=== PATIENT | female | born 1990 | race Caucasian/White ===

== ENCOUNTER 2017-03-24 12:31 | Emergency (ER) | payer MEDICARE, OTHER ==
[2017-03-24 12:49] VITALS: RESP 18; TEMP 97.4
--- NOTE | 2017-03-24 12:59 | ED ---
Female Urogenital HPI - General Chief complaint: Urogenital Stated complaint: Female Time Seen by Provider: 03/24/17 12:51 Source: patient, RN notes reviewed Mode of arrival: ambulatory - History of Present Illness Initial comments: 26-year-old female presents to the emergency department with a chief complaint of vaginal discharge. Patient states that she has an unusual vaginal discharge to have been ordered to it. Patient states she is also having some pelvic cramping with this. Patient states he hasn't had any fever chills with this. Patient states she has had the same sexual partner but does not know she has an STD or not. Patient states that she was concerned due to her symptoms so she thought that she should be evaluated. Patient denies any other symptoms at this time.Patient denies any recent fever, chills, shortness of breath, chest pain, back pain, abdominal pain, nausea vomiting, numbness or tingling, dysuria or hematuria, constipation or diarrhea, headaches or visual changes, or any other current symptoms. Last Menstrual Period: 03/22/17 - Related Data Home Medications Medication Instructions Recorded Confirmed metFORMIN HCL [Glucophage] 500 mg PO BID 03/24/17 03/24/17 Previous Rx's Medication Instructions Recorded metroNIDAZOLE 0.75% VAGINAL 1 applic VAGINAL HS 7 Days 03/24/17 [Metrogel Vaginal] Allergies Allergy/AdvReac Type Severity Reaction Status Date / Time morphine Allergy Intermediate Rash/Hives Verified 03/24/17 13:48 chocolate flavor Allergy Rash/Hives Verified 03/24/17 13:48 Review of Systems ROS Statement: Those systems with pertinent positive or pertinent negative responses have been documented in the HPI. ROS Other: All systems not noted in ROS Statement are negative. Past Medical History Past Medical History: No Reported History, Skin Disorder Additional Past Medical History / Comment(s): cholelithiasis and psoriasis History of Any Multi-Drug Resistant Organisms: None Reported Past Surgical History: Cholecystectomy Additional Past Surgical History / Comment(s): bilateral knee surgery 1999, 2000 Past Anesthesia/Blood Transfusion Reactions: No Reported Reaction Past Psychological History: Anxiety, Depression Smoking Status: Never smoker Past Alcohol Use History: None Reported Past Drug Use History: None Reported - Past Family History Mother Family Medical History: No Reported History General Exam General appearance: alert, in no apparent distress Eye exam: Present: normal appearance ENT exam: Present: normal exam, mucous membranes moist Neck exam: Present: normal inspection. Absent: tenderness, meningismus, lymphadenopathy Respiratory exam: Present: normal lung sounds bilaterally. Absent: respiratory distress, wheezes, rales, rhonchi, stridor Cardiovascular Exam: Present: regular rate, normal rhythm, normal heart sounds. Absent: systolic murmur, diastolic murmur, rubs, gallop, clicks GI/Abdominal exam: Present: soft, normal bowel sounds. Absent: distended, tenderness, guarding, rebound, rigid External exam: Present: normal external exam Speculum exam: Present: vaginal discharge (White, thin). Absent: erythema, cervical discharge, vaginal bleeding, foreign body, tissue, laceration Neurological exam: Present: alert, oriented X3 Psychiatric exam: Present: normal affect, normal mood Skin exam: Present: warm, dry, intact, normal color. Absent: rash Course Vital Signs 03/24/17 12:47 Temperature 97.4 F L Pulse Rate 97 Respiratory 18 Rate Blood Pressure 144/80 O2 Sat by Pulse 98 Oximetry Medical Decision Making - Medical Decision Making 26-year-old female presents emergency Department chief complaint of vaginal discharge. This patient's vaginal exam is most suspicious for bacterial vaginosis. We did check for STDs. We discussed follow-up for this return parameters. We discussed all the patient's family's questions. They stated they understood and management. The plan. They will be discharged home. - Lab Data Lab Results 03/24/17 03/24/17 03/24/17 Range/Units 13:21 13:21 13:21 Urine Color Yellow Urine Appearance Clear (Clear) Urine pH 6.0 (5.0-8.0) Ur Specific [place] 1.020 (1.001-1.035) Urine Protein Negative (Negative) Urine Glucose (UA) Negative (Negative) Urine Ketones Negative (Negative) Urine Blood Negative (Negative) Urine Nitrite Negative (Negative) Urine Bilirubin Negative (Negative) Urine Urobilinogen <2.0 (<2.0) mg/dL Ur Leukocyte Esterase Negative (Negative) Urine HCG, Qual Not Detected (Not Detectd) Trichomonas Ag (Rapid) Negative (Negative) Disposition Clinical Impression: Bacterial vaginosis Disposition: HOME SELF-CARE Condition: Stable Instructions: Bacterial Vaginosis (ED) Additional Instructions: Please use medication as discussed. Please follow up with family doctor if symptoms have not improved over the next two days. Please return to the emergency room if your symptoms increase or worsen or for any other concerns. Prescriptions: metroNIDAZOLE 0.75% VAGINAL [Metrogel Vaginal] 1 applic VAGINAL HS 7 Days Referrals: Edd Capellan MD [Primary Care Provider] - 1-2 days Time of Disposition: 14:12
[2017-03-24 13:47] LABS: Appearance,Urine Clear (Clear); Bilirubin,Urine Negative (Negative); Glucose,Urine (UA) Negative (Negative); Ketones,Urine Negative (Negative); Leukocyte Esterase,Urine Negative (Negative); Nitrite,Urine Negative (Negative); Protein,Urine Negative (Negative); UA Billing (MACRO vs. MICRO) CHEM; Urobilinogen,Urine <2.0 mg/dL (<2.0)
[2017-03-24 14:33] VITALS: BP 136/73; PULSE 80
[2017-03-25 10:40] LABS: Chlamydia/GC Source Vaginal
== END 2017-03-24 14:33 | disposition home or self-care (01) ==
LOC: EC 12:31
DX: N76.0 Acute vaginitis (principal); Z79.84 Long term (current) use of oral hypoglycemic drugs; Z88.5 Allergy status to narcotic agent; Z91.018 Allergy to other foods
CPT/HCPCS: 81003; 81025; 87070; 87205; 87491; 87591; 87808; 99283

== ENCOUNTER 2017-04-23 02:01 | Inpatient (IN) | payer MEDICARE, OTHER ==
[2017-04-23] MEDS ORDERED: SODIUM CHLORIDE 0.9% 500 ML IV STA (02:23)
[2017-04-23 04:07] LABS: Basophils # (A) 0.1 k/uL (0-0.2); Basophils % (A) 1 %; CH 29.7; CHCM 33.1; Eosinophils # (A) 0.2 k/uL (0-0.7); Eosinophils % (A) 2 %; HCT 43.5 % (34.0-46.0); HDW 2.67; HGB 14.1 gm/dL (11.4-16.0); Luc % (Auto) 1; Lymphocytes # (A) 1.6 k/uL (1.0-4.8); Lymphocytes % (A) 16 %; MCH 29.3 pg (25.0-35.0); MCHC 32.5 g/dL (31.0-37.0); Mean Platelet Volume 6.6; Monocytes # (A) 0.5 k/uL (0-1.0); Monocytes % (A) 6 %; Neutrophils # (A) 7.3 k/uL (1.3-7.7); Neutrophils % (A) 75 %; RBC 4.83 m/uL (3.80-5.40); RDW 13.3 % (11.5-15.5); WBC 9.8 k/uL (3.8-10.6); WBC (Perox) 10.03
[2017-04-23 04:20] LABS: ALT 57 U/L (9-52); AST 35 U/L (14-36); Alcohol <10 mg/dL; Alkaline Phosphatase 94 U/L (38-126); Anion Gap 12 mmol/L; Blood Urea Nitrogen 7 mg/dL (7-17); Calcium 8.9 mg/dL (8.4-10.2); Carbon Dioxide 20 mmol/L (22-30); Chloride 109 mmol/L (98-107); Glucose 94 mg/dL (74-99); Non-African American GFR(MDRD) >60 (>60 ml/min/1.73 sqM); Potassium 3.9 mmol/L (3.5-5.1); Sodium 141 mmol/L (137-145); Total Bilirubin 0.3 mg/dL (0.2-1.3); Total Protein 6.7 g/dL (6.3-8.2)
--- NOTE | 2017-04-23 04:41 | ED ---
Seizure HPI - General Chief Complaint: Seizure Stated Complaint: Possible Seizure Time Seen by Provider: 04/23/17 02:04 Source: patient, EMS Mode of arrival: EMS - History of Present Illness Initial Comments: This patient is a 26-year-old woman brought by EMS to be evaluated for possible seizure. EMS had reported that the patient's roommate heard her cry out and then went to see her and found her somewhat stiff, and the roommate called EMS. EMS arrived to find the patient appearing postictal, disoriented and initially not able to speak. Over number of minutes he patient then reportedly returned to baseline. The patient herself is not able to give any related history. She remembers going to bed, and then the next thing she recalls was becoming alert while a number people were around her at her residence. The patient is denying any injury or pain. She denies any loss of continence. Patient has no previous seizure history. MD Complaint: possible seizure -: minutes(s) Description of Episode: post-event confusion Witnessed: no Trauma: No Seizure History: none Place: home Possible Precipitating Event: none Associated Symptoms: denies other symptoms - Related Data Home Medications Medication Instructions Recorded Confirmed metFORMIN HCL [Glucophage] 500 mg PO BID 03/24/17 04/23/17 Previous Rx's Medication Instructions Recorded Ciprofloxacin HCl [Cipro] 500 mg PO Q12HR #10 tablet 04/24/17 Allergies Allergy/AdvReac Type Severity Reaction Status Date / Time morphine Allergy Intermediate Rash/Hives Verified 04/23/17 08:46 chocolate flavor Allergy Rash/Hives Verified 04/23/17 08:46 Review of Systems ROS Statement: Those systems with pertinent positive or pertinent negative responses have been documented in the HPI. ROS Other: All systems not noted in ROS Statement are negative. Constitutional: Denies: fever, chills Eyes: Denies: vision change Respiratory: Denies: cough, dyspnea Cardiovascular: Denies: chest pain, palpitations Gastrointestinal: Denies: abdominal pain, vomiting, diarrhea Genitourinary: Denies: dysuria, hematuria Musculoskeletal: Denies: back pain Skin: Denies: rash Neurological: Reports: confusion. Denies: headache, weakness, numbness, paresthesias Past Medical History Past Medical History: No Reported History, Skin Disorder Additional Past Medical History / Comment(s): cholelithiasis and psoriasis History of Any Multi-Drug Resistant Organisms: None Reported Past Surgical History: Cholecystectomy Additional Past Surgical History / Comment(s): bilateral knee surgery 1999, 2000 Past Anesthesia/Blood Transfusion Reactions: No Reported Reaction Past Psychological History: Anxiety, Depression Smoking Status: Never smoker Past Alcohol Use History: None Reported Past Drug Use History: None Reported - Past Family History Mother Family Medical History: No Reported History Father Family Medical History: No Reported History Additional Family Medical History / Comment(s): Father is healthy General Exam General appearance: alert, in no apparent distress, obese Head exam: Present: atraumatic, normocephalic Eye exam: Present: normal appearance, PERRL, EOMI. Absent: scleral icterus, conjunctival injection, nystagmus ENT exam: Present: normal oropharynx, mucous membranes moist Neck exam: Present: normal inspection, full ROM. Absent: meningismus Respiratory exam: Present: normal lung sounds bilaterally. Absent: respiratory distress, wheezes, rales, rhonchi, stridor Cardiovascular Exam: Present: normal rhythm, tachycardia (Rate 116 a minute), normal heart sounds. Absent: systolic murmur, diastolic murmur, rubs, gallop GI/Abdominal exam: Present: soft. Absent: distended, tenderness, guarding, rebound, mass Extremities exam: Present: normal inspection, normal capillary refill. Absent: pedal edema, calf tenderness Back exam: Present: normal inspection Neurological exam: Present: alert, oriented X3, CN II-XII intact. Absent: motor sensory deficit Skin exam: Present: warm, dry, intact, normal color. Absent: rash Course Vital Signs 04/23/17 04/23/17 04/23/17 02:03 03:49 04:52 Temperature 98.1 F Pulse Rate 129 H 103 H 140 H Respiratory 20 18 Rate Blood Pressure 139/76 140/64 128/72 O2 Sat by Pulse 97 98 98 Oximetry 04/23/17 04/23/17 04/23/17 05:22 05:24 05:50 Temperature Pulse Rate 139 H 108 H Respiratory Rate Blood Pressure 128/83 117/71 O2 Sat by Pulse 92 L 96 Oximetry Medical Decision Making - Medical Decision Making Patient is a 26-year-old woman with what sounds by history like a seizure. She has no previous history and she is back to baseline. I was in the process of going to discuss the patient's results with her when she did have another generalized tonic-clonic seizure. Given this patient will receive a loading dose of anticonvulsants, be admitted for neurology consultation - Lab Data Result diagrams: 04/24/17 07:35 04/24/17 07:35 Lab Results 04/23/17 04/23/17 04/23/17 Range/Units 02:39 02:39 03:59 WBC 9.8 (3.8-10.6) k/uL RBC 4.83 (3.80-5.40) m/uL Hgb 14.1 (11.4-16.0) gm/dL Hct 43.5 (34.0-46.0) % MCV 90.0 (80.0-100.0) fL MCH 29.3 (25.0-35.0) pg MCHC 32.5 (31.0-37.0) g/dL RDW 13.3 (11.5-15.5) % Plt Count 247 (150-450) k/uL Neutrophils % 75 % Lymphocytes % 16 % Monocytes % 6 % Eosinophils % 2 % Basophils % 1 % Neutrophils # 7.3 (1.3-7.7) k/uL Lymphocytes # 1.6 (1.0-4.8) k/uL Monocytes # 0.5 (0-1.0) k/uL Eosinophils # 0.2 (0-0.7) k/uL Basophils # 0.1 (0-0.2) k/uL Sodium (137-145) mmol/L Potassium (3.5-5.1) mmol/L Chloride (98-107) mmol/L Carbon Dioxide (22-30) mmol/L Anion Gap mmol/L BUN (7-17) mg/dL Creatinine (0.52-1.04) mg/dL Est GFR (MDRD) Af Amer (>60 ml/min/1.73 sqM) Est GFR (MDRD) Non-Af (>60 ml/min/1.73 sqM) Glucose (74-99) mg/dL Calcium (8.4-10.2) mg/dL Total Bilirubin (0.2-1.3) mg/dL AST (14-36) U/L ALT (9-52) U/L Alkaline Phosphatase (38-126) U/L Total Protein (6.3-8.2) g/dL Albumin (3.5-5.0) g/dL Urine HCG, Qual Not Detected (Not Detectd) Urine Opiates Screen Not Detected (NotDetected) Ur Oxycodone Screen Not Detected (NotDetected) Urine Methadone Screen Not Detected (NotDetected) Ur Propoxyphene Screen Not Detected (NotDetected) Ur Barbiturates Screen Not Detected (NotDetected) U Tricyclic Antidepress Not Detected (NotDetected) Ur Phencyclidine Scrn Not Detected (NotDetected) Ur Amphetamines Screen Not Detected (NotDetected) U Methamphetamines Scrn Not Detected (NotDetected) U Benzodiazepines Scrn Not Detected (NotDetected) Urine Cocaine Screen Not Detected (NotDetected) U Marijuana (THC) Screen Not Detected (NotDetected) Serum Alcohol mg/dL 04/23/17 Range/Units 03:59 WBC (3.8-10.6) k/uL RBC (3.80-5.40) m/uL Hgb (11.4-16.0) gm/dL Hct (34.0-46.0) % MCV (80.0-100.0) fL MCH (25.0-35.0) pg MCHC (31.0-37.0) g/dL RDW (11.5-15.5) % Plt Count (150-450) k/uL Neutrophils % % Lymphocytes % % Monocytes % % Eosinophils % % Basophils % % Neutrophils # (1.3-7.7) k/uL Lymphocytes # (1.0-4.8) k/uL Monocytes # (0-1.0) k/uL Eosinophils # (0-0.7) k/uL Basophils # (0-0.2) k/uL Sodium 141 (137-145) mmol/L Potassium 3.9 (3.5-5.1) mmol/L Chloride 109 H (98-107) mmol/L Carbon Dioxide 20 L (22-30) mmol/L Anion Gap 12 mmol/L BUN 7 (7-17) mg/dL Creatinine 0.60 (0.52-1.04) mg/dL Est GFR (MDRD) Af Amer >60 (>60 ml/min/1.73 sqM) Est GFR (MDRD) Non-Af >60 (>60 ml/min/1.73 sqM) Glucose 94 (74-99) mg/dL Calcium 8.9 (8.4-10.2) mg/dL Total Bilirubin 0.3 (0.2-1.3) mg/dL AST 35 (14-36) U/L ALT 57 H (9-52) U/L Alkaline Phosphatase 94 (38-126) U/L Total Protein 6.7 (6.3-8.2) g/dL Albumin 3.9 (3.5-5.0) g/dL Urine HCG, Qual (Not Detectd) Urine Opiates Screen (NotDetected) Ur Oxycodone Screen (NotDetected) Urine Methadone Screen (NotDetected) Ur Propoxyphene Screen (NotDetected) Ur Barbiturates Screen (NotDetected) U Tricyclic Antidepress (NotDetected) Ur Phencyclidine Scrn (NotDetected) Ur Amphetamines Screen (NotDetected) U Methamphetamines Scrn (NotDetected) U Benzodiazepines Scrn (NotDetected) Urine Cocaine Screen (NotDetected) U Marijuana (THC) Screen (NotDetected) Serum Alcohol <10 mg/dL - EKG Data -: EKG Interpreted by Me EKG shows normal: sinus rhythm, axis (Normal), intervals (Normal), ST-T waves ( Normal) Rate: tachycardia (Rate 123 bpm) Interpretation: other (Possible anterior infarct) Disposition Clinical Impression: Mental status change, New onset seizure Narrative: Possible seizure Disposition: [facility] Condition: Fair
[2017-04-23] MEDS: LORazepam 2 MG/ML SYRINGE IV STA ×2 (04:46→04:50)
[2017-04-23] MEDS ORDERED: ONDANSETRON 4 MG/2 ML VIAL IVP PRN (04:58)
[2017-04-23] MEDS ORDERED: NALOXONE 0.4 MG/ML 1 ML VIAL IV PRN (04:58)
[2017-04-23] MEDS ORDERED: SODIUM CHLORIDE 0.9% 1,000 ML IV SCH (05:00)
[2017-04-23] MEDS ORDERED: PHENYTOIN SODIUM INJ 1,200 MG in SODIUM CHLORIDE 0.9% 100 ML IVPB STA (05:02)
[2017-04-23 05:15] LABS: Glucose,Whole Blood 111 mg/dL (75-99)
--- NOTE | 2017-04-23 05:31 | CT ---
EXAM: CT Head Without Intravenous Contrast CLINICAL HISTORY: Reason: Pain TECHNIQUE: Axial computed tomography images of the head/brain without intravenous contrast. DLP is 2185.1 mGy-cm. This CT exam was performed using one or more of the following dose reduction techniques: automated exposure control, adjustment of the mA and/or kV according to patient size, and/or use of iterative reconstruction technique. COMPARISON: 03/03/16 FINDINGS: Artifacts: Extensive motion artifact degrade image quality. Brain: No gross hemorrhage or mass effect. Consider repeat imaging for better evaluation when patient is stable. Ventricles: Unremarkable. No ventriculomegaly. Bones/joints: Unremarkable. No acute fracture. Soft tissues: Unremarkable. Sinuses: Unremarkable as visualized. No acute sinusitis. Mastoid air cells: Unremarkable as visualized. No mastoid effusion. IMPRESSION: 1. Limited study due to extensive motion artifact. 2. No gross acute hemorrhage or mass effect.
[2017-04-23] MEDS ORDERED: metFORMIN 500 MG TAB PO SCH (07:30)
[2017-04-23] MEDS ORDERED: ACETAMINOPHEN TAB 325 MG TAB PO PRN (09:09)
[2017-04-23] MEDS ORDERED: LORazepam 2 MG/ML SYRINGE IV PRN (09:45)
--- NOTE | 2017-04-23 12:40 | HP ---
DATE OF ADMISSION: Patient is a 26-year-old female who came in with new onset of seizure. Patient was found to be in tonic-clonic activity. Did have a tongue bite without any loss of bowel or bladder continence with post-ictal confusion, lasted for a few minutes and patient is presently alert and oriented x3. This is the first episode of seizure. Patient never had any seizures when she was in a kid. No history of brain tumors in the family. No history of seizures in the family and patient did bite her tongue and patient was loaded with Dilantin, subsequently admitted and patient was started on Ativan here. I order an MRI and MRA with contrast to rule out any organic cause for seizures and also sleep-awake EEG and until the EEG is done, patient will not be started on any antiseizure medication. Neurology was consulted as well and patient was a bit tachycardic and mild low-grade fever, probably related to seizures and without any signs or symptoms of infection, although septic work-up is being done with a chest x-ray, UA, urine culture, urine analysis and blood culture and repeat electrolytes and comprehensive metabolic profile tomorrow and also CBC for leukocytosis tomorrow. REVIEW OF SYSTEMS: NEUROLOGICAL: As described in HPI. Patient denied any weakness, denied any migraine. CONSTITUTIONAL: No fever, no malaise, no fatigue. HEENT: No recent visual problems or hearing problems. Denied any sore throat. CARDIOVASCULAR: No chest pain, orthopnea, PND, no palpitations, no syncope. PULMONARY: No shortness of breath, no cough, no hemoptysis. GASTROINTESTINAL: No diarrhea, no nausea, no vomiting, no abdominal pain. Normoactive bowel sounds. HEMATOLOGICAL: Denies any bleeding or petechiae. GENITOURINARY: Denies any burning micturition, frequency, or urgency. MUSCULOSKELETAL/RHEUMATOLOGICAL: Denies any joint pain, swelling, or any muscle pain. ENDOCRINE: Denies any polyuria or polydipsia. The rest of the 14 point review of systems is negative. Past medical history significant for pCO2 for which patient is on metformin for that and cholelithiasis and psoriasis. Cholecystectomy in the past, anxiety, depression. SOCIAL HISTORY: Denied any smoking, alcohol abuse or any drug abuse. FAMILY HISTORY: As described in HPI. PHYSICAL EXAMINATION: Temperature 100.5, pulse of 126. Patient is not that tachycardic now. Patient is probably in 90s now. Respiratory rate was 34, now around 16 of 17. Blood pressure is 123/61, saturating at 100% on room air. GENERAL EXAMINATION: Morbidly obese. Alert and oriented x3. HEENT: Pupils are round and equally reacting to light. EOMI. No scleral icterus. No conjunctival pallor. Normocephalic, atraumatic. No pharyngeal erythema. No thyromegaly. CARDIOVASCULAR: S1 and S2 present. No murmurs, rubs, or gallops. PULMONARY: Chest is clear to auscultation, no wheezing or crackles. ABDOMEN: Soft, nontender, nondistended, normoactive bowel sounds. No palpable organomegaly. MUSCULOSKELETAL: No joint swelling or deformity. EXTREMITIES: No cyanosis, clubbing, or pedal edema. NEUROLOGICAL: Gross neurological examination did not reveal any focal deficits. SKIN: No rashes. LABORATORY DATA: CBC, CMP are essentially within normal limits and urine drug screen is negative. Serum alcohol is less than 10. ASSESSMENT AND PLAN: 1. New onset seizures. Work-up as mentioned above. 2. Fever with tachycardia. Patient will be worked up for sepsis, although no source of infection was identified. 3. Systemic inflammatory response can be related to seizures and patient does not have any significant symptoms of encephalopathy. Patient does not have any migraine. 4. ( ). Patient was on metformin, which will be held until MRI with contrast is done. Can be started again as an outpatient. 5. Morbid obesity. Counseling was provided.
--- NOTE | 2017-04-23 12:51 | XR ---
EXAMINATION TYPE: XR chest 2V DATE OF EXAM: 04/23/2017 COMPARISON: CTA chest March 02, 2016. HISTORY: Seizure yesterday. TECHNIQUE: Frontal and lateral views of the chest are obtained. FINDINGS: There is no focal air space opacity, pleural effusion, or pneumothorax seen. The cardiac silhouette size is within normal limits. The osseous structures are intact. Cholecystectomy clips a re noted. IMPRESSION: No acute cardiopulmonary process.
[2017-04-23 15:57] LABS: Amorphous Sediment,Urine Rare /hpf; Appearance,Urine Cloudy (Clear); Bacteria,Urine Occasional /hpf; Bilirubin,Urine Negative (Negative); Glucose,Urine (UA) Negative (Negative); Ketones,Urine Negative (Negative); Leukocyte Esterase,Urine Negative (Negative); Mucus,Urine Rare /hpf; Nitrite,Urine Negative (Negative); PH, Urine 5.5 (5.0-8.0); Particle Count 1503; Protein,Urine Negative (Negative); RBC,Urine <1 /hpf (0-5); Specific Gravity,Urine 1.009 (1.001-1.035); Squamous Epithelial Cell,Urine 1 /hpf (0-4); UA Billing (MACRO vs. MICRO) MICRO; Uric Acid Crystals,Urine Occasional /hpf; Urobilinogen,Urine <2.0 mg/dL (<2.0); WBC,Urine 2 /hpf (0-5)
--- NOTE | 2017-04-23 20:26 | MR ---
EXAMINATION TYPE: MR brain wo/w con DATE OF EXAM: 04/23/2017 COMPARISON: NONE HISTORY: Seizures CONTRAST: Standard multiplanar, multisequence MRI departmental protocol utilizing 20 mL intravenous gadolinium contrast. FINDINGS: The ventricles and sulci appear normal. There is no mass effect nor midline shift. There is no sign of intracranial hemorrhage. I see no sign of cerebral edema. There is some mucosal thickenin g in the left maxillary sinus. Brainstem appears normal. Corpus callosum appears normal. Sella turcic a appears normal. I see no pathologic enhancement. Muhammad and white matter structures have normal signa l pattern. IMPRESSION: Normal MR scan of the brain. I do not see a cause for seizures.
--- NOTE | 2017-04-23 21:46 | CONS ---
DATE OF CONSULTATION: 04/23/2017 CHIEF COMPLAINT: Seizure, single episode. HISTORY OF PRESENT ILLNESS: The patient is a pleasant 26-year-old female who is being evaluated by the neurology service per the request of Dr. Montague for a seizure. The patient states that she went to bed yesterday at approximately 11:00 p.m. and she was at her normal state of health. She woke up early in the morning to find the EMS personnel at her bedside. She was then told her family that her family heard some moaning and screaming and when they got to her bedroom she was convulsing and EMS was called. The patient does not know how long her seizure lasted. She did bite her tongue, but she does not believe she had any sphincter incontinence. She denies any previous history of seizures. The patient was somewhat postictal after the spell. In the emergency room, a CT scan of the brain was done, which was normal. Her CBC and urine drug screen was normal. Her comprehensive metabolic profile was normal except for mildly elevated ALT at 57. I did review her EEG, which was within normal limits. The patient was admitted for further work-up and management. She has not had a breakthrough seizure since her admission. She denies any headache or dizziness. Denies any lateralizing numbness or weakness. An MRI of the brain has been ordered, but the results are pending at this time. The patient denies starting any new medications and denies having any fevers at home. Her only medications is metformin which she takes for her polycystic ovarian disease. PAST MEDICAL HISTORY: Polycystic ovaries, history of psoriasis and cholecystectomy. She also has history of depression and anxiety disorder. SOCIAL HISTORY: She denies any tobacco, alcohol or drug use. FAMILY HISTORY: Noncontributory. HOME MEDICATIONS: Metformin. ALLERGIES: MORPHINE AND CHOCOLATE FLAVORING. REVIEW OF SYSTEMS: CONSTITUTIONAL: Negative. EYES: Negative. ENT: Negative. CARDIOVASCULAR: Negative. RESPIRATORY: Negative. NEUROLOGICAL: As mentioned above. GASTROINTESTINAL: Negative. GENITOURINARY: As mentioned above. PSYCHIATRIC: Positive for history of depression and anxiety disorder. ENDOCRINE: Negative. Dermatological: Positive for history of psoriasis. MUSCULOSKELETAL: Negative. PHYSICAL EXAM: Vital signs show a temperature of 98.4, pulse 102, respirations 32, blood pressure 112/64. Early this morning, she did have a temperature of 100.5. GENERAL APPEARANCE: The patient is an obese female who appears to be in no acute distress. HEENT: Normocephalic, atraumatic, no facial asymmetry is seen. Extraocular muscles are intact. Neck is supple with no masses felt. CARDIOVASCULAR: Regular rate and rhythm. ABDOMEN: Nontender, nondistended. Extremities showed trace edema with no clubbing seen. NEUROLOGICAL EXAM: The patient is awake alert and oriented x3. Speech and language are normal. Strength is full in all 4 extremities. Sensory exam was normal to light touch in all 4 extremities. No facial asymmetry is seen on cranial nerve testing. No tremors or seizure-like activity is seen. IMPRESSION: 1. Generalized tonic-clonic seizure, single episode. 2. Polycystic ovaries. 3. Elevated liver enzymes. RECOMMENDATIONS: The patient does appear to have suffered a generalized tonic-clonic seizure that was witnessed by family. The episode occurred while she was sleeping. She has not had any previous history of seizure-like activity prior to this. I had a lengthy discussion with her regarding her work-up. Her CT scan of the brain and EEG were reviewed and were within normal limits. An MRI of the brain has been ordered with and without contrast and the results are pending. At this time, no antiepileptic medications will be recommended, as this is the first seizure and this appears to be unprovoked. The patient was told that she is not to drive or operate any heavy machinery for a period of 6 months. Continue neurologic checks. If her MRI of the brain is normal, she will be cleared for discharge tomorrow morning. She can follow up in the outpatient clinic after her discharge. Thank you for allowing me to participate in the care of your patient. If you have any questions, please feel free to contact me.
--- NOTE | 2017-04-23 22:08 | EEG ---
DATE OF SERVICE: 04/23/2017 INDICATIONS FOR EXAMINATION: Seizure, single episode. AGE: 26Y DESCRIPTION OF THE PROCEDURE: This EEG was performed using a 21 channel digital electroencephalograph following international 10-20 system. DESCRIPTION OF THE RECORDING: From the beginning of the tracing, with the patient's eyes closed, the background rhythm was mostly consisting of 9 Hz alpha frequency in the posterior occipital leads. No obvious asymmetry is seen. Photic stimulation is performed with a good driving response seen. No pathological waves were elicited. Hyperventilation was not performed. Rare movement artifacts were seen. The patient remains await throughout the tracing. No epileptiform discharges were seen. Her EKG lead showed tachycardic rate with a normal rhythm. INTERPRETATION: This awake EEG can be considered within normal limits. There was no asymmetry seen. No epileptiform discharges were noticed. The absence of epileptiform discharges does not rule out the diagnosis of epilepsy. Therefore, clinical correlation is recommended.
[2017-04-24 07:39] VITALS: BP 113/58; PULSE 78; RESP 26; TEMP 98.3
[2017-04-24 08:10] LABS: CH 29.8; CHCM 33.4; HCT 45.4 % (34.0-46.0); HDW 2.65; HGB 14.6 gm/dL (11.4-16.0); MCH 28.8 pg (25.0-35.0); MCHC 32.1 g/dL (31.0-37.0); MCV 89.7 fL (80.0-100.0); Mean Platelet Volume 6.6; RBC 5.06 m/uL (3.80-5.40); RDW 13.5 % (11.5-15.5); WBC 8.2 k/uL (3.8-10.6)
[2017-04-24 08:31] LABS: ALT 57 U/L (9-52); AST 37 U/L (14-36); Alkaline Phosphatase 79 U/L (38-126); Anion Gap 11 mmol/L; Blood Urea Nitrogen 7 mg/dL (7-17); Calcium 9.1 mg/dL (8.4-10.2); Carbon Dioxide 23 mmol/L (22-30); Chloride 106 mmol/L (98-107); Glucose 86 mg/dL (74-99); Non-African American GFR(MDRD) >60 (>60 ml/min/1.73 sqM); Potassium 3.9 mmol/L (3.5-5.1); Sodium 140 mmol/L (137-145); Total Bilirubin 0.8 mg/dL (0.2-1.3); Total Protein 7.1 g/dL (6.3-8.2)
--- NOTE | 2017-04-25 08:47 | DS ---
DATE OF ADMISSION: 04/23/2017 DATE OF DISCHARGE: 04/24/2017 26-year-old admitted to the hospital with new onset seizure, first episode of seizure tonic-clonic activity and patient is clinically doing and will be discharged today. EEG is negative. MRI is negative. Although patient has clinical seizures, had clinical seizures, since this is the first episode patient is not being discharged on any antiseizure medications. Counseling regarding not to drive for about 6 months was provided. Patient will be discharged to follow up with Dr. Moran and Dr. Capellan. Dr. Capellan in [address] Moran in about a week. Activity as tolerated. Low-calorie diet. The patient was seen and examined on the day of discharge. Vitals are stable. PHYSICAL EXAMINATION: GENERAL: The patient is alert and oriented x3, not in any acute distress. Well developed, well nourished. HEENT: Pupils are round and equally reacting to light. EOMI. No scleral icterus. No conjunctival pallor. Normocephalic, atraumatic. No pharyngeal erythema. No thyromegaly. CARDIOVASCULAR: S1 and S2 present. No murmurs, rubs, or gallops. PULMONARY: Chest is clear to auscultation, no wheezing or crackles. ABDOMEN: Soft, nontender, nondistended, normoactive bowel sounds. No palpable organomegaly. MUSCULOSKELETAL: No joint swelling or deformity. EXTREMITIES: No cyanosis, clubbing, or pedal edema. NEUROLOGICAL: Gross neurological examination did not reveal any focal deficits. SKIN: No rashes. FINAL DIAGNOSIS(ES): 1. New onset seizures. 2. PCOD. 3. Fever with tachycardia. Fever and tachycardia probably related to seizures. 4. Systemic inflammatory response from seizures although that completely resolved at this point of time. Patient's urine showed occasional bacteria. Patient does not have any signs of infection but UA is definitely positive since she had a fever and tachycardia, although may be related to seizures, I will go ahead and give her 5 days of and empiric antibiotic ciprofloxacin treating for possibility of urinary tract infection although the possibility of which is low. PCOD for which patient is on metformin, which will be continued.
== END 2017-04-24 11:10 | disposition home or self-care (01) | DRG 101 ==
LOC: EC 02:01 → 5MS5E 04:58
PROVIDERS: ADMIT Hospitalist; ATTEND Hospitalist
DX: R56.9 Unspecified convulsions (principal); Z68.44 Body mass index [BMI] 60.0-69.9, adult; N39.0 Urinary tract infection, site not specified; E66.01 Morbid (severe) obesity due to excess calories; E28.2 Polycystic ovarian syndrome; L40.9 Psoriasis, unspecified; Z71.3 Dietary counseling and surveillance; Z86.59 Personal history of other mental and behavioral disorders; Z90.49 Acquired absence of other specified parts of digestive tract; Z88.5 Allergy status to narcotic agent; Z91.018 Allergy to other foods; Z79.84 Long term (current) use of oral hypoglycemic drugs
CPT/HCPCS: 36415; 70450; 70553; 71020; 80053; 80306; 80320; 81001; 81025; 85025; 85027; 87040; 87086; 93005; 95819; 96361; 96365; 96375; 99285

== ENCOUNTER 2017-07-28 19:10 | Emergency (ER) | payer MEDICARE, OTHER ==
--- NOTE | 2017-07-28 20:20 | ED ---
Female Urogenital HPI - General Chief complaint: Vaginal Bleeding Stated complaint: 4 wks preg. Spotting Time Seen by Provider: 07/28/17 20:01 Source: patient, RN notes reviewed Mode of arrival: ambulatory Limitations: no limitations - History of Present Illness Initial comments: This a 27 show female presents emergency Department chief complaint of vaginal bleeding and . Patient states she started spotting one day ago. Patient states that has not stopped states only when she wipes when she goes to the bathroom. Patient states she is A0. Patient states her last menstrual cycle was June 09. Patient states that she is scheduled an appointment with Dr. Gutierres her [employer]. Patient states that she has developed some mild pelvic cramping. She denies any passage of clots or material. Patient states that she is O+ blood type. Patient denies any fever, chills, headache, dizziness, chest pain, shortness breath, nausea, vomiting. Patient denies any dysuria - Related Data Home Medications Medication Instructions Recorded Confirmed No Known Home Medications [No 07/28/17 07/28/17 Known Home Medications] Allergies Allergy/AdvReac Type Severity Reaction Status Date / Time morphine Allergy Intermediate Rash/Hives Verified 07/28/17 20:32 chocolate flavor Allergy Rash/Hives Verified 07/28/17 20:32 Review of Systems ROS Statement: Those systems with pertinent positive or pertinent negative responses have been documented in the HPI. ROS Other: All systems not noted in ROS Statement are negative. Past Medical History Past Medical History: No Reported History, Skin Disorder Additional Past Medical History / Comment(s): cholelithiasis and psoriasis History of Any Multi-Drug Resistant Organisms: None Reported Past Surgical History: Cholecystectomy Additional Past Surgical History / Comment(s): bilateral knee surgery 1999, 2000 Past Anesthesia/Blood Transfusion Reactions: No Reported Reaction Past Psychological History: Anxiety, Depression Smoking Status: Never smoker Past Alcohol Use History: None Reported Past Drug Use History: None Reported - Past Family History Mother Family Medical History: No Reported History Additional Family Medical History / Comment(s): Mother is healthy Father Family Medical History: No Reported History Additional Family Medical History / Comment(s): Father is healthy General Exam Limitations: no limitations General appearance: alert, in no apparent distress, obese Head exam: Present: atraumatic, normocephalic, normal inspection Respiratory exam: Present: normal lung sounds bilaterally. Absent: respiratory distress, wheezes, rales, rhonchi, stridor Cardiovascular Exam: Present: regular rate, normal rhythm, normal heart sounds. Absent: systolic murmur, diastolic murmur, rubs, gallop, clicks GI/Abdominal exam: Present: soft, normal bowel sounds. Absent: distended, tenderness, guarding, rebound, rigid Back exam: Absent: CVA tenderness (R), CVA tenderness (L) Skin exam: Present: warm, dry, intact, normal color. Absent: rash Course Vital Signs 07/28/17 19:24 Temperature 98.4 F Pulse Rate 87 Respiratory 20 Rate Blood Pressure 159/97 O2 Sat by Pulse 98 Oximetry Medical Decision Making - Medical Decision Making 27-year-old female presented emergency department for possible bleeding and urgency. Patient's hCG level is less than 2.4. Patient is not currently . Patient ultrasound does not reveal any acute abnormality. Patient is mostly to the having her menstrual cycle at this time. Patient will follow- up with her [employer] return parameters were discussed. - Lab Data Result diagrams: 07/28/17 20:20 07/28/17 20:20 Lab Results 07/28/17 07/28/17 07/28/17 Range/Units 20:20 20:20 20:20 WBC 9.4 (3.8-10.6) k/uL RBC 5.08 (3.80-5.40) m/uL Hgb 15.0 (11.4-16.0) gm/dL Hct 43.8 (34.0-46.0) % MCV 86.3 (80.0-100.0) fL MCH 29.4 (25.0-35.0) pg MCHC 34.1 (31.0-37.0) g/dL RDW 12.9 (11.5-15.5) % Plt Count 279 (150-450) k/uL Neutrophils % 57 % Lymphocytes % 31 % Monocytes % 5 % Eosinophils % 5 % Basophils % 1 % Neutrophils # 5.4 (1.3-7.7) k/uL Lymphocytes # 2.9 (1.0-4.8) k/uL Monocytes # 0.5 (0-1.0) k/uL Eosinophils # 0.5 (0-0.7) k/uL Basophils # 0.1 (0-0.2) k/uL Sodium 141 (137-145) mmol/L Potassium 4.2 (3.5-5.1) mmol/L Chloride 108 H (98-107) mmol/L Carbon Dioxide 22 (22-30) mmol/L Anion Gap 11 mmol/L BUN 7 (7-17) mg/dL Creatinine 0.70 (0.52-1.04) mg/dL Est GFR (MDRD) Af Amer >60 (>60 ml/min/1.73 sqM) Est GFR (MDRD) Non-Af >60 (>60 ml/min/1.73 sqM) Glucose 81 (74-99) mg/dL Calcium 9.4 (8.4-10.2) mg/dL HCG, Quant <2.4 mIU/mL Urine Color Urine Appearance (Clear) Urine pH (5.0-8.0) Ur Specific [place] (1.001-1.035) Urine Protein (Negative) Urine Glucose (UA) (Negative) Urine Ketones (Negative) Urine Blood (Negative) Urine Nitrite (Negative) Urine Bilirubin (Negative) Urine Urobilinogen (<2.0) mg/dL Ur Leukocyte Esterase (Negative) Blood Type O Positive Blood Type Recheck No 07/28/17 Range/Units 20:20 WBC (3.8-10.6) k/uL RBC (3.80-5.40) m/uL Hgb (11.4-16.0) gm/dL Hct (34.0-46.0) % MCV (80.0-100.0) fL MCH (25.0-35.0) pg MCHC (31.0-37.0) g/dL RDW (11.5-15.5) % Plt Count (150-450) k/uL Neutrophils % % Lymphocytes % % Monocytes % % Eosinophils % % Basophils % % Neutrophils # (1.3-7.7) k/uL Lymphocytes # (1.0-4.8) k/uL Monocytes # (0-1.0) k/uL Eosinophils # (0-0.7) k/uL Basophils # (0-0.2) k/uL Sodium (137-145) mmol/L Potassium (3.5-5.1) mmol/L Chloride (98-107) mmol/L Carbon Dioxide (22-30) mmol/L Anion Gap mmol/L BUN (7-17) mg/dL Creatinine (0.52-1.04) mg/dL Est GFR (MDRD) Af Amer (>60 ml/min/1.73 sqM) Est GFR (MDRD) Non-Af (>60 ml/min/1.73 sqM) Glucose (74-99) mg/dL Calcium (8.4-10.2) mg/dL HCG, Quant mIU/mL Urine Color Light Yellow Urine Appearance Clear (Clear) Urine pH 7.5 (5.0-8.0) Ur Specific [place] 1.009 (1.001-1.035) Urine Protein Negative (Negative) Urine Glucose (UA) Negative (Negative) Urine Ketones Negative (Negative) Urine Blood Negative (Negative) Urine Nitrite Negative (Negative) Urine Bilirubin Negative (Negative) Urine Urobilinogen <2.0 (<2.0) mg/dL Ur Leukocyte Esterase Negative (Negative) Blood Type Blood Type Recheck Disposition Clinical Impression: Menstruation Disposition: HOME SELF-CARE Condition: Stable Instructions: Menstruation (ED) Additional Instructions: Please return to the Emergency Department if symptoms worsen or any other concerns. Referrals: Edd Capellan MD [Primary Care Provider] - 1-2 days Time of Disposition: 21:09
[2017-07-28 20:30] LABS: Appearance,Urine Clear (Clear); Basophils # (A) 0.1 k/uL (0-0.2); Basophils % (A) 1 %; Bilirubin,Urine Negative (Negative); CH 29.5; CHCM 34.4; Eosinophils # (A) 0.5 k/uL (0-0.7); Eosinophils % (A) 5 %; Glucose,Urine (UA) Negative (Negative); HCT 43.8 % (34.0-46.0); HDW 2.89; Ketones,Urine Negative (Negative); Leukocyte Esterase,Urine Negative (Negative); Luc # (Auto) 0.15; Luc % (Auto) 2; Lymphocytes # (A) 2.9 k/uL (1.0-4.8); Lymphocytes % (A) 31 %; MCH 29.4 pg (25.0-35.0); MCHC 34.1 g/dL (31.0-37.0); MCV 86.3 fL (80.0-100.0); Mean Platelet Volume 6.3; Monocytes # (A) 0.5 k/uL (0-1.0); Monocytes % (A) 5 %; Neutrophils # (A) 5.4 k/uL (1.3-7.7); Neutrophils % (A) 57 %; Nitrite,Urine Negative (Negative); PH, Urine 7.5 (5.0-8.0); Protein,Urine Negative (Negative); RBC 5.08 m/uL (3.80-5.40); RDW 12.9 % (11.5-15.5); Specific Gravity,Urine 1.009 (1.001-1.035); UA Billing (MACRO vs. MICRO) CHEM; Urobilinogen,Urine <2.0 mg/dL (<2.0); WBC 9.4 k/uL (3.8-10.6)
[2017-07-28 20:41] LABS: Anion Gap 11 mmol/L; Blood Urea Nitrogen 7 mg/dL (7-17); Calcium 9.4 mg/dL (8.4-10.2); Carbon Dioxide 22 mmol/L (22-30); Chloride 108 mmol/L (98-107); Glucose 81 mg/dL (74-99); Non-African American GFR(MDRD) >60 (>60 ml/min/1.73 sqM); Potassium 4.2 mmol/L (3.5-5.1); Sodium 141 mmol/L (137-145)
--- NOTE | 2017-07-28 21:01 | US ---
EXAMINATION TYPE: US OB <=14 wks transvag DATE OF EXAM: 07/28/2017 COMPARISON: NONE CLINICAL HISTORY: Pain. spotting EXAM PERFORMED: Transvaginal (TV) and Transabdominal (TA) EXAM MEASUREMENTS: GESTATIONAL AGE / DATING Physician Established: Not established Dates by LMP: (7 weeks/0 days) EDC: 03/16/2018 Dates by First Scan: This is first scan MATERNAL ANATOMY Uterus: 8.1 x 4.2 x 5.1 Right Ovary: 3.7 x 2.4 x 3.0 Post CDS / Adnexa: wnl Presence of free fluid: wnl Presence of corpus luteal cyst: no Presence of subchorionic bleed: no GESTATION / SURVEY CRL: Not seen MSD: Not seen IUP: No IUP seen at this time Date of LMP: 06/08/2017 Beta HcG (if available): Not available Left ovary is not visualized. IMPRESSION: 1. No current evidence of intrauterine . Differential diagnosis includes early , sp ontaneous and ectopic . Correlate with serum beta hCG level, short-term follow-up p elvic ultrasound in 5-7 days and serial serum beta hCGs. 2. Left ovary is not visualized due to bowel gas.
[2017-07-28 21:18] VITALS: BP 134/85; PULSE 78; RESP 18; TEMP 98.5
== END 2017-07-28 21:18 | disposition home or self-care (01) ==
LOC: EC 19:10
DX: N94.9 Unspecified condition associated with female genital organs and menstrual cycle (principal); Z88.5 Allergy status to narcotic agent; Z91.018 Allergy to other foods
CPT/HCPCS: 36415; 76801; 76817; 80048; 81003; 84702; 85025; 86900; 86901; 99284

== ENCOUNTER 2017-08-02 23:09 | Emergency (ER) | payer MEDICARE, OTHER ==
[2017-08-03] MEDS ORDERED: SODIUM CHLORIDE 0.9% 500 ML IV STA (00:03)
[2017-08-03 00:49] LABS: ALT 41 U/L (9-52); AST 28 U/L (14-36); Alkaline Phosphatase 107 U/L (38-126); Anion Gap 11 mmol/L; Blood Urea Nitrogen 9 mg/dL (7-17); Calcium 9.5 mg/dL (8.4-10.2); Carbon Dioxide 21 mmol/L (22-30); Chloride 107 mmol/L (98-107); Glucose 95 mg/dL (74-99); Non-African American GFR(MDRD) >60 (>60 ml/min/1.73 sqM); Potassium 4.7 mmol/L (3.5-5.1); Sodium 139 mmol/L (137-145); Total Bilirubin 0.4 mg/dL (0.2-1.3); Total Protein 7.3 g/dL (6.3-8.2)
[2017-08-03 00:50] LABS: Amorphous Sediment,Urine Rare /hpf; Appearance,Urine Cloudy (Clear); Bacteria,Urine Rare /hpf; Bilirubin,Urine Negative (Negative); Glucose,Urine (UA) Negative (Negative); Ketones,Urine Trace (Negative); Leukocyte Esterase,Urine Trace (Negative); Mucus,Urine Rare /hpf; Nitrite,Urine Negative (Negative); PH, Urine 6.5 (5.0-8.0); Particle Count 3595; Protein,Urine Negative (Negative); RBC,Urine <1 /hpf (0-5); Specific Gravity,Urine 1.018 (1.001-1.035); Squamous Epithelial Cell,Urine 9 /hpf (0-4); UA Billing (MACRO vs. MICRO) MICRO; Urobilinogen,Urine <2.0 mg/dL (<2.0); WBC,Urine 3 /hpf (0-5)
[2017-08-03 01:00] LABS: Basophils % (A) 0 %; CH 30.2; CHCM 33.7; Eosinophils # (A) 0.2 k/uL (0-0.7); Eosinophils % (A) 2 %; HCT 45.5 % (34.0-46.0); HDW 2.72; Luc # (Auto) 0.15; Luc % (Auto) 1; Lymphocytes # (A) 1.8 k/uL (1.0-4.8); Lymphocytes % (A) 15 %; MCH 29.7 pg (25.0-35.0); Mean Platelet Volume 6.6; Monocytes # (A) 0.7 k/uL (0-1.0); Monocytes % (A) 6 %; Neutrophils # (A) 9.1 k/uL (1.3-7.7); Neutrophils % (A) 76 %; RBC 5.05 m/uL (3.80-5.40); RDW 13.1 % (11.5-15.5)
--- NOTE | 2017-08-03 01:45 | ED ---
General Adult HPI - General Chief complaint: Seizure Stated complaint: Seizure Time Seen by Provider: 08/02/17 23:45 Source: patient Mode of arrival: ambulatory Limitations: no limitations - History of Present Illness Initial comments: This patient is a 27-year-old woman who presents to be evaluated for concerns that she may have had a seizure. The patient states she feels this way because she woke up before coming in here and noted that she had had urinary incontinence, and she was also feeling very fatigued. The patient did not have any trauma. No one had observed any tonic-clonic movements. The patient states that she has previously had one seizure, and does not take any anticonvulsant medication. She is denying pains. She has not had fever or chills. -: minutes(s) - Related Data Home Medications Medication Instructions Recorded Confirmed No Known Home Medications [No 07/28/17 08/02/17 Known Home Medications] Allergies Allergy/AdvReac Type Severity Reaction Status Date / Time morphine Allergy Intermediate Rash/Hives Verified 07/28/17 20:32 chocolate flavor Allergy Rash/Hives Verified 07/28/17 20:32 Review of Systems ROS Statement: Those systems with pertinent positive or pertinent negative responses have been documented in the HPI. ROS Other: All systems not noted in ROS Statement are negative. Constitutional: Reports: weakness (Generalized). Denies: fever, chills Respiratory: Denies: cough, dyspnea Cardiovascular: Denies: chest pain, syncope Gastrointestinal: Denies: abdominal pain, vomiting, diarrhea Genitourinary: Reports: as per HPI, other (Incontinence). Denies: dysuria, hematuria Musculoskeletal: Denies: back pain Skin: Denies: rash Neurological: Denies: headache, weakness, numbness Past Medical History Past Medical History: No Reported History, Skin Disorder Additional Past Medical History / Comment(s): cholelithiasis and psoriasis History of Any Multi-Drug Resistant Organisms: None Reported Past Surgical History: Cholecystectomy Additional Past Surgical History / Comment(s): bilateral knee surgery 1999, 2000 Past Anesthesia/Blood Transfusion Reactions: No Reported Reaction Past Psychological History: Anxiety, Depression Smoking Status: Never smoker Past Alcohol Use History: None Reported Past Drug Use History: None Reported - Past Family History Mother Family Medical History: No Reported History Additional Family Medical History / Comment(s): Mother is healthy Father Family Medical History: No Reported History Additional Family Medical History / Comment(s): Father is healthy General Exam Limitations: no limitations General appearance: alert, in no apparent distress, obese Head exam: Present: atraumatic, normocephalic Eye exam: Present: normal appearance. Absent: scleral icterus, conjunctival injection ENT exam: Present: normal oropharynx Respiratory exam: Present: normal lung sounds bilaterally. Absent: respiratory distress, wheezes, rales, rhonchi, stridor Cardiovascular Exam: Present: regular rate, normal rhythm, normal heart sounds. Absent: systolic murmur, diastolic murmur, rubs, gallop GI/Abdominal exam: Present: soft. Absent: distended, tenderness, guarding, rebound, rigid Extremities exam: Present: normal inspection, normal capillary refill. Absent: pedal edema, calf tenderness Back exam: Present: normal inspection. Absent: CVA tenderness (R), CVA tenderness (L) Neurological exam: Present: alert Skin exam: Present: warm, dry, intact, normal color. Absent: rash Course Vital Signs 08/02/17 08/03/17 23:15 01:55 Temperature 97.5 F L 97.9 F Pulse Rate 125 H 96 Respiratory 20 16 Rate Blood Pressure 127/89 154/94 O2 Sat by Pulse 98 100 Oximetry Medical Decision Making - Medical Decision Making This patient is 27-year-old woman who presents after she woke up and found that she had had an episode of urinary incontinence. Patient's workup is essentially unremarkable. At this point would recommend that she follow up with neurology on the off chance that this is a seizure though I do not have that impression at this point. Also recommend sleep study, and the patient states that this was previously recommended but that she had not had a chance to have that done. She currently feels well and would like to go home. Discussed return parameters. - Lab Data Result diagrams: 08/03/17 00:20 08/03/17 00:20 Lab Results 08/03/17 08/03/17 08/03/17 Range/Units 00:15 00:20 00:20 WBC 12.0 H (3.8-10.6) k/uL RBC 5.05 (3.80-5.40) m/uL Hgb 15.0 (11.4-16.0) gm/dL Hct 45.5 (34.0-46.0) % MCV 90.0 (80.0-100.0) fL MCH 29.7 (25.0-35.0) pg MCHC 33.0 (31.0-37.0) g/dL RDW 13.1 (11.5-15.5) % Plt Count 274 (150-450) k/uL Neutrophils % 76 % Lymphocytes % 15 % Monocytes % 6 % Eosinophils % 2 % Basophils % 0 % Neutrophils # 9.1 H (1.3-7.7) k/uL Lymphocytes # 1.8 (1.0-4.8) k/uL Monocytes # 0.7 (0-1.0) k/uL Eosinophils # 0.2 (0-0.7) k/uL Basophils # 0.0 (0-0.2) k/uL Sodium 139 (137-145) mmol/L Potassium 4.7 (3.5-5.1) mmol/L Chloride 107 (98-107) mmol/L Carbon Dioxide 21 L (22-30) mmol/L Anion Gap 11 mmol/L BUN 9 (7-17) mg/dL Creatinine 0.70 (0.52-1.04) mg/dL Est GFR (MDRD) Af Amer >60 (>60 ml/min/1.73 sqM) Est GFR (MDRD) Non-Af >60 (>60 ml/min/1.73 sqM) Glucose 95 (74-99) mg/dL Calcium 9.5 (8.4-10.2) mg/dL Total Bilirubin 0.4 (0.2-1.3) mg/dL AST 28 (14-36) U/L ALT 41 (9-52) U/L Alkaline Phosphatase 107 (38-126) U/L Total Protein 7.3 (6.3-8.2) g/dL Albumin 4.1 (3.5-5.0) g/dL HCG, Quant <2.4 mIU/mL Urine Color Yellow Urine Appearance Cloudy H (Clear) Urine pH 6.5 (5.0-8.0) Ur Specific [place] 1.018 (1.001-1.035) Urine Protein Negative (Negative) Urine Glucose (UA) Negative (Negative) Urine Ketones Trace H (Negative) Urine Blood Negative (Negative) Urine Nitrite Negative (Negative) Urine Bilirubin Negative (Negative) Urine Urobilinogen <2.0 (<2.0) mg/dL Ur Leukocyte Esterase Trace H (Negative) Urine RBC <1 (0-5) /hpf Urine WBC 3 (0-5) /hpf Ur Squamous Epith Cells 9 H (0-4) /hpf Amorphous Sediment Rare H (None) /hpf Urine Bacteria Rare H (None) /hpf Urine Mucus Rare H (None) /hpf Disposition Clinical Impression: Incontinence in female Disposition: HOME SELF-CARE Condition: Fair Instructions: Urinary Incontinence (ED), Fatigue (ED) Referrals: Edd Capellan MD [Primary Care Provider] - 1-2 days
[2017-08-03 01:56] VITALS: BP 154/94; PULSE 96; RESP 16; TEMP 97.9
== END 2017-08-03 01:55 | disposition home or self-care (01) ==
LOC: EC 23:09
DX: R32 Unspecified urinary incontinence (principal); R56.9 Unspecified convulsions; R53.83 Other fatigue; Z88.5 Allergy status to narcotic agent; Z91.018 Allergy to other foods
CPT/HCPCS: 36415; 80053; 81001; 84702; 85025; 99284

== ENCOUNTER 2017-08-03 12:44 | Inpatient (IN) | payer MEDICARE, OTHER ==
--- NOTE | 2017-08-03 13:18 | ED ---
General Adult HPI - General Chief complaint: Seizure Stated complaint: Seizure Time Seen by Provider: 08/03/17 12:56 Source: patient, EMS Mode of arrival: EMS Limitations: no limitations - History of Present Illness Initial comments: 27-year-old female presenting for evaluation of suspected seizure. She states that she she lost consciousness and woke up with EMS around her. Her roommate was there and the patient states that she witnessed it however attempts to call the roommate are unsuccessful at this time. She denies urinary incontinence and states that she bit the left side of her tongue however there is an associated headache as well. She denies any head pain on the soft tissue. At this point she feels tired but has no other complaints with the exception of the headache. She has no history of seizures however she was seen at this facility yesterday for evaluation of suspected seizure activity as she woke up with urinary incontinence. She states a remote history of seizures although not on antiepileptic medications. There was also concern for recently with vaginal bleeding and this too was negative. - Related Data Home Medications Medication Instructions Recorded Confirmed No Known Home Medications [No 07/28/17 08/03/17 Known Home Medications] Allergies Allergy/AdvReac Type Severity Reaction Status Date / Time morphine Allergy Intermediate Rash/Hives Verified 08/03/17 13:06 chocolate flavor Allergy Rash/Hives Verified 08/03/17 13:06 Review of Systems ROS Statement: Those systems with pertinent positive or pertinent negative responses have been documented in the HPI. ROS Other: All systems not noted in ROS Statement are negative. Constitutional: Denies: fever, chills Eyes: Denies: eye pain, eye discharge, vision change ENT: Denies: ear pain, throat pain Respiratory: Denies: cough, dyspnea Cardiovascular: Denies: chest pain, palpitations Endocrine: Denies: fatigue, heat or cold intolerance Gastrointestinal: Reports: nausea. Denies: abdominal pain, vomiting, diarrhea Genitourinary: Denies: urgency, dysuria Musculoskeletal: Denies: back pain, arthralgia, myalgia Skin: Denies: rash, lesions Neurological: Reports: headache. Denies: weakness, numbness, paresthesias, abnormal gait, vertigo Psychiatric: Denies: anxiety, depression Hematological/Lymphatic: Denies: easy bleeding, easy bruising Past Medical History Past Medical History: Skin Disorder Additional Past Medical History / Comment(s): cholelithiasis and psoriasis History of Any Multi-Drug Resistant Organisms: None Reported Past Surgical History: Cholecystectomy Additional Past Surgical History / Comment(s): bilateral knee surgery 1999, 2000 Past Anesthesia/Blood Transfusion Reactions: No Reported Reaction Past Psychological History: Anxiety, Depression Smoking Status: Never smoker Past Alcohol Use History: None Reported Past Drug Use History: None Reported - Past Family History Mother Family Medical History: No Reported History Additional Family Medical History / Comment(s): Mother is healthy Father Family Medical History: No Reported History Additional Family Medical History / Comment(s): Father is healthy General Exam Limitations: no limitations General appearance: alert, in no apparent distress Head exam: Present: atraumatic, normocephalic, normal inspection Eye exam: Present: normal appearance, PERRL, EOMI. Absent: scleral icterus, conjunctival injection, periorbital swelling ENT exam: Present: normal exam, mucous membranes moist Neck exam: Present: normal inspection. Absent: tenderness, meningismus, lymphadenopathy Respiratory exam: Present: normal lung sounds bilaterally. Absent: respiratory distress, wheezes, rales, rhonchi, stridor Cardiovascular Exam: Present: normal rhythm, tachycardia GI/Abdominal exam: Present: soft, normal bowel sounds. Absent: distended, tenderness, guarding, rebound, rigid Rectal exam: Present: deferred Extremities exam: Present: normal inspection, full ROM, normal capillary refill. Absent: tenderness, pedal edema, joint swelling, calf tenderness Back exam: Present: normal inspection Neurological exam: Present: alert, oriented X3, CN II-XII intact Psychiatric exam: Present: normal affect, normal mood Skin exam: Present: warm, dry, intact, normal color. Absent: rash Course Vital Signs 08/03/17 08/03/17 08/03/17 12:50 15:09 16:36 Temperature 98.1 F 98.4 F 99.1 F Pulse Rate 112 H 90 96 Respiratory 18 18 18 Rate Blood Pressure 142/73 110/63 116/56 O2 Sat by Pulse 94 L 100 100 Oximetry EKG Findings - EKG Comments: EKG Findings:: Sinus tachycardia with a ventricular rate of 104, PHUC 144, QRS 84 , QT/QTC 344/452. Medical Decision Making - Medical Decision Making 27-year-old female with no history of seizures presenting for evaluation of seizure activity prior to arrival to this ED. She was evaluated for seizures last night On physical examination she is resting comfortably in the bed in no apparent distress. Cranial nerves II through XII intact without focal neurologic deficit. Bed rails up and padding placed beside the patient. Given this is her second presentation for a seizure-like activity will perform CT head and obtain labs. Patient is markedly tachycardic in the ED. Unable to PERC out given tachycardia but given uncertain etiology of seizure activity will also obtain d-dimer. Labs significant for an elevated D-dimer. Otherwise no significant abnormalities. CT head showed no acute process. CT PE ordered. Discussed with Dr. Canela who accepted the admission with request for consult with Dr. Kenyon ( neuro). Admission order placed, bed request submitted, and orders placed. Will cont to follow for CT results. CTA chest showed no evidence of PE. Will not intiate heparin therapy. - Lab Data Result diagrams: 08/03/17 14:14 08/03/17 14:14 Lab Results 08/03/17 08/03/17 08/03/17 Range/Units 14:14 14:14 14:14 WBC 12.6 H (3.8-10.6) k/uL RBC 4.92 (3.80-5.40) m/uL Hgb 14.5 (11.4-16.0) gm/dL Hct 44.3 (34.0-46.0) % MCV 90.1 (80.0-100.0) fL MCH 29.4 (25.0-35.0) pg MCHC 32.7 (31.0-37.0) g/dL RDW 13.0 (11.5-15.5) % Plt Count 240 (150-450) k/uL Neutrophils % 79 % Lymphocytes % 13 % Monocytes % 6 % Eosinophils % 1 % Basophils % 0 % Neutrophils # 9.9 H (1.3-7.7) k/uL Lymphocytes # 1.6 (1.0-4.8) k/uL Monocytes # 0.8 (0-1.0) k/uL Eosinophils # 0.2 (0-0.7) k/uL Basophils # 0.0 (0-0.2) k/uL D-Dimer 0.71 H (<0.60) mg/L FEU Sodium 140 (137-145) mmol/L Potassium 4.4 (3.5-5.1) mmol/L Chloride 106 (98-107) mmol/L Carbon Dioxide 23 (22-30) mmol/L Anion Gap 11 mmol/L BUN 8 (7-17) mg/dL Creatinine 0.72 (0.52-1.04) mg/dL Est GFR (MDRD) Af Amer >60 (>60 ml/min/1.73 sqM) Est GFR (MDRD) Non-Af >60 (>60 ml/min/1.73 sqM) Glucose 91 (74-99) mg/dL Calcium 9.3 (8.4-10.2) mg/dL HCG, Qual Not Detected Disposition Clinical Impression: Generalized seizure, Elevated d-dimer Disposition: ADMITTED IP TO [facility] Decision to Admit Reason: Admit from [facility] Decision Date: 08/03/17 Decision Time: 15:46
[2017-08-03] MEDS ORDERED: ONDANSETRON ODT 4 MG TAB PO STA (14:17)
[2017-08-03 14:35] LABS: Anion Gap 11 mmol/L; Basophils % (A) 0 %; Blood Urea Nitrogen 8 mg/dL (7-17); CH 29.7; CHCM 33.1; Calcium 9.3 mg/dL (8.4-10.2); Carbon Dioxide 23 mmol/L (22-30); Chloride 106 mmol/L (98-107); Eosinophils # (A) 0.2 k/uL (0-0.7); Eosinophils % (A) 1 %; Glucose 91 mg/dL (74-99); HCG,Qualitative Serum Not Detected; HCT 44.3 % (34.0-46.0); HDW 2.72; HGB 14.5 gm/dL (11.4-16.0); Luc # (Auto) 0.12; Luc % (Auto) 1; Lymphocytes # (A) 1.6 k/uL (1.0-4.8); Lymphocytes % (A) 13 %; MCH 29.4 pg (25.0-35.0); MCHC 32.7 g/dL (31.0-37.0); MCV 90.1 fL (80.0-100.0); Mean Platelet Volume 6.4; Monocytes # (A) 0.8 k/uL (0-1.0); Monocytes % (A) 6 %; Neutrophils # (A) 9.9 k/uL (1.3-7.7); Neutrophils % (A) 79 %; Non-African American GFR(MDRD) >60 (>60 ml/min/1.73 sqM); Potassium 4.4 mmol/L (3.5-5.1); RBC 4.92 m/uL (3.80-5.40); Sodium 140 mmol/L (137-145); WBC 12.6 k/uL (3.8-10.6); WBC (Perox) 12.72
[2017-08-03] MEDS ORDERED: ACETAMINOPHEN TAB 325 MG TAB PO STA (14:44)
--- NOTE | 2017-08-03 14:58 | CT ---
EXAMINATION TYPE: CT brain wo con DATE OF EXAM: 08/03/2017 COMPARISON: 04/23/2017 HISTORY: Seizure CT DLP: 1028 mGycm. Automated Exposure Control for Dose Reduction was Utilized. TECHNIQUE: CT scan of the head is performed without contrast. FINDINGS: The ventricles and sulci appear normal. There is no mass effect nor midline shift. There is no sign of intracranial hemorrhage. The calvarium is intact. CONCLUSION: Negative unenhanced head CT scan. No change.
[2017-08-03] MEDS ORDERED: RX INFO: IV CONTRAST WAS GIVEN 1 EACH MISC MISCELLANE PRN (15:11)
[2017-08-03] MEDS ORDERED: KETOROLAC 30 MG/ML 1 ML VIAL IVP PRN (15:41)
[2017-08-03] MEDS ORDERED: ONDANSETRON 4 MG/2 ML VIAL IVP PRN (15:41)
[2017-08-03] MEDS ORDERED: NALOXONE 0.4 MG/ML 1 ML VIAL IV PRN (15:41)
--- NOTE | 2017-08-03 15:44 | CT ---
EXAMINATION TYPE: CT chest angio for PE DATE OF EXAM: 08/03/2017 COMPARISON: NONE HISTORY: Syncopal episode today CT DLP: 752.1 mGycm Automated exposure control for dose reduction was used. CONTRAST: CT Chest for pulmonary embolism performed with with IV Contrast, patient injected with 100 mL of Omni paque 350. There are 3-D post processed images. FINDINGS: The lungs are clear of consolidation. There is no evidence of a pulmonary mass. There is no pericardi al effusion. There is no pleural effusion. Heart size is normal. There is no mediastinal adenopathy. There is no sign of aortic aneurysm or dissection. I see no filling defects in the pulmonary arteries . The bony thorax is intact. There is spurring in the thoracic spine. IMPRESSION: Negative CT angiogram of the chest. No evidence of pulmonary embolism.
[2017-08-03] MEDS: IBUPROFEN 400 MG TAB PO PRN (20:16)
[2017-08-04] MEDS: IBUPROFEN 400 MG TAB PO PRN (08:00)
[2017-08-04 11:06] LABS: Basophils % (A) 0 %; CH 30.5; CHCM 33.8; Eosinophils % (A) 0 %; HCT 45.1 % (34.0-46.0); HDW 2.68; HGB 14.7 gm/dL (11.4-16.0); Luc # (Auto) 0.06; Luc % (Auto) 1; Lymphocytes # (A) 1.1 k/uL (1.0-4.8); Lymphocytes % (A) 11 %; MCH 29.5 pg (25.0-35.0); MCHC 32.5 g/dL (31.0-37.0); MCV 90.7 fL (80.0-100.0); Mean Platelet Volume 6.8; Monocytes # (A) 0.4 k/uL (0-1.0); Monocytes % (A) 4 %; Neutrophils # (A) 8.2 k/uL (1.3-7.7); Neutrophils % (A) 84 %; RBC 4.98 m/uL (3.80-5.40); RDW 13.7 % (11.5-15.5); WBC 9.8 k/uL (3.8-10.6); WBC (Perox) 9.67
[2017-08-04 11:40] LABS: Anion Gap 11 mmol/L; Blood Urea Nitrogen 10 mg/dL (7-17); Calcium 9.3 mg/dL (8.4-10.2); Carbon Dioxide 22 mmol/L (22-30); Chloride 107 mmol/L (98-107); Glucose 87 mg/dL (74-99); Non-African American GFR(MDRD) >60 (>60 ml/min/1.73 sqM); Potassium 4.4 mmol/L (3.5-5.1); Sodium 140 mmol/L (137-145)
[2017-08-04] MEDS ORDERED: LORazepam 2 MG/ML SYRINGE IV PRN (12:37)
--- NOTE | 2017-08-04 12:43 | XR ---
EXAMINATION TYPE: XR chest 2V DATE OF EXAM: 08/03/2017 COMPARISON: 04/23/2017 HISTORY: Seizure TECHNIQUE: Frontal and lateral views of the chest are obtained. FINDINGS: Heart and mediastinum are normal. Lungs are clear. Diaphragm is normal. Bony thorax is int act. IMPRESSION: Normal chest. No change.
--- NOTE | 2017-08-04 16:46 | HP ---
HISTORY AND PHYSICAL CHIEF COMPLAINT: Seizure disorder. HISTORY: This 27-year-old woman with a past medical history of cholelithiasis, psoriasis, history of cholecystectomy, bilateral knee surgery, anxiety and depression being followed by Dr. Capellan in the outpatient setting also had a seizure in April. The patient had multiple workups according to her. Patient is admitted here. The patient was also supposed to follow up with Dr. Moran and the patient did not. The patient is not given any antiseizure medication because it was first episode. The patient also had polycystic ovarian syndrome. A brain MRI was done at that time that showed no acute abnormality. EEG was also done which showed normal findings. Currently the patient is again admitted to [facility] with complaints of generalized tonic-clonic seizure, which was witnessed by the roommate. The patient had some postictal headache also. The patient was taken to [facility] and was admitted for evaluation and treatment. There is no history of fever, rigors. No history of headache, loss of conscious or seizures at this time. PAST MEDICAL HISTORY: History of cholelithiasis, history of psoriasis, history of cholecystectomy, history of anxiety and depression. MEDICATIONS: Medications prior to admission include home medications are none. ALLERGIES: MORPHINE, CHOCOLATE FLAVOR. FAILURE FAMILY: No history of heart disease or strokes in the family. History of seizures in niece. SOCIAL HISTORY: No history of smoking, no alcohol intake. REVIEW OF SYSTEMS: ENT: No diminished hearing or vision. CARDIOVASCULAR: No angina. RESPIRATORY: No cough or hemoptysis. GI: No nausea. : No dysuria. NERVOUS SYSTEM: Mentioned earlier. ALLERGY/IMMUNOLOGY: No asthma or hayfever. MUSCULOSKELETAL: As mentioned earlier. HEMATOLOGY/ONCOLOGY: No anemia. ENDOCRINE: No history of diabetes or hypothyroidism. CONSTITUTIONAL: As mentioned earlier. DERMATOLOGY: Negative. RHEUMATOLOGY: Negative. PSYCHIATRY: As mentioned earlier. PHYSICAL EXAMINATION: Alert and oriented x3. Pulse is 87, blood pressure 134/66, respiration 18, temperature 97.8, pulse ox 94% room air. HEENT: Conjunctivae normal. NECK: No jugular venous distention. CARDIOVASCULAR: S1, S2. RESPIRATORY: Breath sounds diminished in the bases. No rhonchi. No crackles. ABDOMEN: Soft, nontender. No mass palpable. LEGS: No edema no swelling. NERVOUS SYSTEM: Higher functions as mentioned earlier. Moves all four limbs. No focal motor sensory deficits. LYMPHATICS: No lymphadenopathy in the neck, axillae or groin. SKIN: No ulcer, rash or bleeding. LABS: WBC 9.8, hemoglobin is 14.7. ASSESSMENT: 1. Acute seizure disorder, generalized tonic-clonic. 2. History of recurrent seizures. 3. Increased WBC possibly reactive in nature. 4. History of cholelithiasis and cholecystectomy. 5. History of degenerative joint disease. 6. History anxiety and depression. RECOMMENDATION AND DISCUSSION: This 27-year-old woman who presented with multiple complex medical issues. We will monitor the patient closely. Continue the current management and symptomatic treatment. Neurology evaluation. Patient might be a candidate for antiseizure medication because recurrence of seizures. Otherwise continue the rest of the medications. DVT prophylaxis. We will plan for repeat labs. Guarded prognosis. Further recommendations to follow. Neurology evaluation. Neurovascular work up. MMODL / ROLLYN: [id number] /
[2017-08-04] MEDS ORDERED: levETIRAcetam IV 1,500 MG in SALINE 1 100ML.BAG IVPB STA (19:25)
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
[2017-08-04] MEDS: HEPARIN SODIUM,PORCINE 5,000 UNIT/ML 1 ML VIAL SQ SCH (21:50)
[2017-08-04] MEDS: FOLIC ACID 1 MG TAB PO SCH (21:50)
[2017-08-05] MEDS: levETIRAcetam IV 1,000 MG in SALINE 1 100ML.BAG IVPB SCH ×2 (06:52→15:10)
[2017-08-05] MEDS: FOLIC ACID 1 MG TAB PO SCH (08:26)
[2017-08-05] MEDS: HEPARIN SODIUM,PORCINE 5,000 UNIT/ML 1 ML VIAL SQ SCH (08:26)
[2017-08-05 08:33] VITALS: PULSE 87; RESP 16
[2017-08-05 10:58] LABS: Anion Gap 12 mmol/L; Blood Urea Nitrogen 11 mg/dL (7-17); Carbon Dioxide 22 mmol/L (22-30); Chloride 108 mmol/L (98-107); Glucose 97 mg/dL (74-99); Non-African American GFR(MDRD) >60 (>60 ml/min/1.73 sqM); Potassium 3.8 mmol/L (3.5-5.1); Sodium 142 mmol/L (137-145)
[2017-08-05 11:06] LABS: Basophils % (A) 1 %; CH 29.6; CHCM 32.6; Eosinophils # (A) 0.2 k/uL (0-0.7); Eosinophils % (A) 3 %; HCT 42.4 % (34.0-46.0); HDW 2.68; Luc % (Auto) 2; Lymphocytes # (A) 1.8 k/uL (1.0-4.8); Lymphocytes % (A) 27 %; MCH 30.2 pg (25.0-35.0); MCHC 33.1 g/dL (31.0-37.0); MCV 91.3 fL (80.0-100.0); Mean Platelet Volume 6.6; Monocytes # (A) 0.5 k/uL (0-1.0); Monocytes % (A) 7 %; Neutrophils % (A) 61 %; RBC 4.65 m/uL (3.80-5.40); RDW 12.9 % (11.5-15.5); WBC 6.5 k/uL (3.8-10.6); WBC (Perox) 6.39
[2017-08-05 17:24] VITALS: BP 145/78; TEMP 96.9
== END 2017-08-05 16:12 | disposition home or self-care (01) | DRG 101 ==
LOC: EC 12:44 → 4MS4W 16:48 → OBSVTOIN 08-05 08:48
PROVIDERS: ADMIT Internal Medicine; ATTEND Internal Medicine
DX: G40.409 Other generalized epilepsy and epileptic syndromes, not intractable, without status epilepticus (principal); F32.9 Major depressive disorder, single episode, unspecified; E28.2 Polycystic ovarian syndrome; S01.512A Laceration without foreign body of oral cavity, initial encounter; D72.829 Elevated white blood cell count, unspecified; R00.0 Tachycardia, unspecified; F41.9 Anxiety disorder, unspecified; M19.90 Unspecified osteoarthritis, unspecified site; E66.9 Obesity, unspecified; R51 Headache; R32 Unspecified urinary incontinence; Z88.5 Allergy status to narcotic agent; Z90.49 Acquired absence of other specified parts of digestive tract; Z91.018 Allergy to other foods; Z82.0 Family history of epilepsy and other diseases of the nervous system; Z87.2 Personal history of diseases of the skin and subcutaneous tissue; Z87.820 Personal history of traumatic brain injury; Z87.42 Personal history of other diseases of the female genital tract
CPT/HCPCS: 36415; 70450; 71020; 71275; 80048; 84703; 85025; 85379; 93005; 95819; 99285

== ENCOUNTER → 2017-08-06 | Outpatient (CLI) | payer MEDICARE, OTHER | END | disposition home or self-care (01) | LOC: LABWHC1 08:35 | PROVIDERS: ATTEND Hospitalist | DX: R56.9 Unspecified convulsions (principal) | CPT/HCPCS: 36415; 80177 ==

== ENCOUNTER 2018-05-16 23:15 | Emergency (ER) | payer MEDICARE, OTHER ==
[2018-05-16] MEDS ORDERED: levETIRAcetam IV 1,000 MG in SALINE 1 100ML.BAG IVPB STA (23:51)
[2018-05-16] MEDS ORDERED: SODIUM CHLORIDE 0.9% 1,000 ML IV STA (23:51)
[2018-05-17 00:17] LABS: Basophils # (A) 0.1 k/uL (0-0.2); Basophils % (A) 1 %; Eosinophils # (A) 0.3 k/uL (0-0.7); Eosinophils % (A) 3 %; HCT 44.4 % (34.0-46.0); Lymphocytes # (A) 2.8 k/uL (1.0-4.8); Lymphocytes % (A) 27 %; MCH 29.8 pg (25.0-35.0); MCHC 33.8 g/dL (31.0-37.0); MCV 88.3 fL (80.0-100.0); Mean Platelet Volume 6.3; Monocytes # (A) 0.7 k/uL (0-1.0); Monocytes % (A) 7 %; Neutrophils # (A) 6.2 k/uL (1.3-7.7); Neutrophils % (A) 60 %; Platelet Count 295 k/uL (150-450); RBC 5.02 m/uL (3.80-5.40); RDW 13.3 % (11.5-15.5); WBC 10.3 k/uL (3.8-10.6)
[2018-05-17 00:20] LABS: Appearance,Urine Clear (Clear); Bilirubin,Urine Negative (Negative); Blood,Urine Negative (Negative); Color,Urine Yellow; Glucose,Urine (UA) Negative (Negative); Ketones,Urine Trace (Negative); Leukocyte Esterase,Urine Trace (Negative); Mucus,Urine Many /hpf; Nitrite,Urine Negative (Negative); Protein,Urine 1+ (Negative); Specific Gravity,Urine 1.037 (1.001-1.035); Squamous Epithelial Cell,Urine 7 /hpf (0-4); WBC,Urine 3 /hpf (0-5)
[2018-05-17 00:32] LABS: ALT 41 U/L (9-52); AST 29 U/L (14-36); Albumin 4.5 g/dL (3.5-5.0); Alcohol <10 mg/dL; Alkaline Phosphatase 103 U/L (38-126); Anion Gap 14 mmol/L; Blood Urea Nitrogen 11 mg/dL (7-17); Calcium 9.5 mg/dL (8.4-10.2); Carbon Dioxide 22 mmol/L (22-30); Chloride 106 mmol/L (98-107); Glucose 99 mg/dL (74-99); Magnesium 1.7 mg/dL (1.6-2.3); Potassium 4.1 mmol/L (3.5-5.1); Sodium 142 mmol/L (137-145); Total Bilirubin 0.3 mg/dL (0.2-1.3); Total Protein 7.8 g/dL (6.3-8.2)
[2018-05-17] MEDS ORDERED: KETOROLAC 30 MG/ML 1 ML VIAL IVP STA (01:08)
--- NOTE | 2018-05-17 01:16 | ED ---
General Adult HPI - General Chief complaint: Seizure Stated complaint: poss Seizure Time Seen by Provider: 05/16/18 23:35 Source: patient Mode of arrival: ambulatory Limitations: no limitations - History of Present Illness Initial comments: Patient is a 27-year-old female presenting for seizure-like activity. Friend is bedside and states that around 11 PM, she called the patient on the phone and the patient was having trouble remembering things as well as difficulty answering questions which is consistent with prior seizures. It is unclear whether the patient also urinated herself. Patient denies any and all symptoms right now and denies any confusion. However, she does admit to some mild headache on the front part of her head that is very typical for when she has prior seizures. She states that she does take Keppra has been compliant with that. She denies any nausea/vomiting/diarrhea or other neurologic symptoms. - Related Data Previous Rx's Medication Instructions Recorded Folic Acid 1 mg PO DAILY #30 tab 08/05/17 Multivitamins, Thera [Multivitamin 1 tab PO DAILY #30 tablet 08/05/17 (formulary)] Thiamine [Vitamin B-1] 100 mg PO DAILY #30 tablet 08/05/17 levETIRAcetam [Keppra] 1,000 mg PO BID #60 tab 08/05/17 Tobramycin 0.3% Ophth Oint [Tobrex 1 applic LEFT EYE TID #1 tube 12/28/17 0.3% Ophth Oint] Allergies Allergy/AdvReac Type Severity Reaction Status Date / Time morphine Allergy Intermediate Rash/Hives Verified 05/16/18 23:21 chocolate flavor Allergy Rash/Hives Verified 05/16/18 23:21 Review of Systems ROS Statement: Those systems with pertinent positive or pertinent negative responses have been documented in the HPI. Constitutional: Negative for chills, fatigue and fever. HENT: Negative for congestion. Respiratory: Negative for chest tightness, shortness of breath and wheezing. Negative for cough Cardiovascular: Negative for chest pain and palpitations. Gastrointestinal: Negative for abdominal pain. Negative for abdominal distention , diarrhea, nausea and vomiting. Genitourinary: Negative for dysuria. Musculoskeletal: Negative for back pain, neck pain and neck stiffness. Skin: Negative for color change. Neurological: Negative for dizziness, weakness and light-headedness. Positive for headache and speech difficulty Psychiatric/Behavioral: Negative for agitation and confusion. Negative for anxiety ROS Other: All systems not noted in ROS Statement are negative. Past Medical History Past Medical History: Skin Disorder Additional Past Medical History / Comment(s): cholelithiasis and psoriasis History of Any Multi-Drug Resistant Organisms: None Reported Past Surgical History: Cholecystectomy Additional Past Surgical History / Comment(s): bilateral knee surgery 1999, 2000 Past Anesthesia/Blood Transfusion Reactions: No Reported Reaction Past Psychological History: Anxiety, Depression Smoking Status: Never smoker Past Alcohol Use History: None Reported Past Drug Use History: None Reported - Past Family History Mother Family Medical History: No Reported History Additional Family Medical History / Comment(s): Mother is healthy Father Family Medical History: No Reported History Additional Family Medical History / Comment(s): Father is healthy General Exam - General Exam Comments Initial Comments: Constitutional: Pt is oriented to person, place, and time. Pt appears well- developed and well-nourished. No distress. HENT: Head: Normocephalic and atraumatic. Eyes: EOM are normal. Pupils 3 mm bilaterally and reactive Neck: Normal range of motion. Neck supple. Cardiovascular: Normal rate, regular rhythm, S1 normal, S2 normal and normal heart sounds. Exam reveals no gallop and no friction rub. No murmur heard. Pulmonary/Chest: Effort normal and breath sounds normal. No tachypnea and no bradypnea. No respiratory distress. No wheezes or rales noted. Abdominal: Soft. Bowel sounds are normal. Pt exhibits no shifting dullness, no distension, no pulsatile liver, no fluid wave, no abdominal bruit and no ascites. There is no tenderness. There is no rigidity, no rebound, no guarding, no tenderness at McBurney's point and negative Eubanks's sign. Musculoskeletal: Normal range of motion. Neurological: Pt is alert and oriented to person, place, and time. No cranial nerve deficit. Skin: Skin is warm and dry. No rash noted. Pt is not diaphoretic. No erythema. No pallor. Psychiatric: Pt has a normal mood and affect. Pt behavior is normal. Thought content normal. Limitations: no limitations Course Vital Signs 05/16/18 23:18 Temperature 98.5 F Pulse Rate 99 Respiratory 16 Rate Blood Pressure 125/69 O2 Sat by Pulse 100 Oximetry EKG Findings - EKG Comments: EKG Findings:: EKG shows normal sinus rhythm with a rate of 88 bpm, RI interval 150, QRS duration 88, QTC 430. There are no significant ST depressions or elevations as well as T-wave inversions. Medical Decision Making - Medical Decision Making Laboratory studies showed that there is no significant leukocytosis and left lites are relatively within normal limits. Patient was given Keppra here in the emergency department and showed no evidence of seizure-like activity. Urinalysis is also noted to be negative for infection or . Serum alcohol level was also noted to be negative. It was neurovascularly intact with no neuro deficits and therefore CT head was not performed. Patient was advised to follow-up with urologist within the next 1-2 days and was agreeable plan. - Lab Data Result diagrams: 05/16/18 23:56 05/16/18 23:56 Lab Results 05/16/18 05/16/18 05/16/18 Range/Units 23:56 23:56 23:56 WBC 10.3 (3.8-10.6) k/uL RBC 5.02 (3.80-5.40) m/uL Hgb 15.0 (11.4-16.0) gm/dL Hct 44.4 (34.0-46.0) % MCV 88.3 (80.0-100.0) fL MCH 29.8 (25.0-35.0) pg MCHC 33.8 (31.0-37.0) g/dL RDW 13.3 (11.5-15.5) % Plt Count 295 (150-450) k/uL Neutrophils % 60 % Lymphocytes % 27 % Monocytes % 7 % Eosinophils % 3 % Basophils % 1 % Neutrophils # 6.2 (1.3-7.7) k/uL Lymphocytes # 2.8 (1.0-4.8) k/uL Monocytes # 0.7 (0-1.0) k/uL Eosinophils # 0.3 (0-0.7) k/uL Basophils # 0.1 (0-0.2) k/uL Sodium 142 (137-145) mmol/L Potassium 4.1 (3.5-5.1) mmol/L Chloride 106 (98-107) mmol/L Carbon Dioxide 22 (22-30) mmol/L Anion Gap 14 mmol/L BUN 11 (7-17) mg/dL Creatinine 0.70 (0.52-1.04) mg/dL Est GFR (CKD-EPI)AfAm >90 (>60 ml/min/1.73 sqM) Est GFR (CKD-EPI)NonAf >90 (>60 ml/min/1.73 sqM) Glucose 99 (74-99) mg/dL Calcium 9.5 (8.4-10.2) mg/dL Magnesium 1.7 (1.6-2.3) mg/dL Total Bilirubin 0.3 (0.2-1.3) mg/dL AST 29 (14-36) U/L ALT 41 (9-52) U/L Alkaline Phosphatase 103 (38-126) U/L Total Protein 7.8 (6.3-8.2) g/dL Albumin 4.5 (3.5-5.0) g/dL Urine Color Yellow Urine Appearance Clear (Clear) Urine pH 6.0 (5.0-8.0) Ur Specific [place] 1.037 H (1.001-1.035) Urine Protein 1+ H (Negative) Urine Glucose (UA) Negative (Negative) Urine Ketones Trace H (Negative) Urine Blood Negative (Negative) Urine Nitrite Negative (Negative) Urine Bilirubin Negative (Negative) Urine Urobilinogen 2.0 (<2.0) mg/dL Ur Leukocyte Esterase Trace H (Negative) Urine WBC 3 (0-5) /hpf Ur Squamous Epith Cells 7 H (0-4) /hpf Urine Mucus Many H (None) /hpf Urine HCG, Qual (Not Detectd) Serum Alcohol <10 mg/dL 05/16/18 Range/Units 23:56 WBC (3.8-10.6) k/uL RBC (3.80-5.40) m/uL Hgb (11.4-16.0) gm/dL Hct (34.0-46.0) % MCV (80.0-100.0) fL MCH (25.0-35.0) pg MCHC (31.0-37.0) g/dL RDW (11.5-15.5) % Plt Count (150-450) k/uL Neutrophils % % Lymphocytes % % Monocytes % % Eosinophils % % Basophils % % Neutrophils # (1.3-7.7) k/uL Lymphocytes # (1.0-4.8) k/uL Monocytes # (0-1.0) k/uL Eosinophils # (0-0.7) k/uL Basophils # (0-0.2) k/uL Sodium (137-145) mmol/L Potassium (3.5-5.1) mmol/L Chloride (98-107) mmol/L Carbon Dioxide (22-30) mmol/L Anion Gap mmol/L BUN (7-17) mg/dL Creatinine (0.52-1.04) mg/dL Est GFR (CKD-EPI)AfAm (>60 ml/min/1.73 sqM) Est GFR (CKD-EPI)NonAf (>60 ml/min/1.73 sqM) Glucose (74-99) mg/dL Calcium (8.4-10.2) mg/dL Magnesium (1.6-2.3) mg/dL Total Bilirubin (0.2-1.3) mg/dL AST (14-36) U/L ALT (9-52) U/L Alkaline Phosphatase (38-126) U/L Total Protein (6.3-8.2) g/dL Albumin (3.5-5.0) g/dL Urine Color Urine Appearance (Clear) Urine pH (5.0-8.0) Ur Specific [place] (1.001-1.035) Urine Protein (Negative) Urine Glucose (UA) (Negative) Urine Ketones (Negative) Urine Blood (Negative) Urine Nitrite (Negative) Urine Bilirubin (Negative) Urine Urobilinogen (<2.0) mg/dL Ur Leukocyte Esterase (Negative) Urine WBC (0-5) /hpf Ur Squamous Epith Cells (0-4) /hpf Urine Mucus (None) /hpf Urine HCG, Qual Not Detected (Not Detectd) Serum Alcohol mg/dL Disposition Clinical Impression: Seizure-like activity Disposition: HOME SELF-CARE Condition: Good Instructions: Recurrent Seizures in Adults (ED) Is patient prescribed a controlled substance at d/c from ED?: No Referrals: Edd Capellan MD [Primary Care Provider] - 1-2 days Time of Disposition: 01:27
[2018-05-17 02:07] VITALS: BP 130/81; PULSE 97; RESP 19; TEMP 97.9
== END 2018-05-17 02:05 | disposition home or self-care (01) ==
LOC: EC 23:15
DX: R56.9 Unspecified convulsions (principal); R51 Headache; Z88.5 Allergy status to narcotic agent; Z91.018 Allergy to other foods
CPT/HCPCS: 36415; 93005; 80053; 83735; 85025; 81001; 81025; 80320; 99285; 96365; J1953

== ENCOUNTER 2020-07-07 04:07 | Emergency (ER) | payer MEDICARE, OTHER ==
[2020-07-07 04:18] VITALS: RESP 18
[2020-07-07] MEDS ORDERED: SODIUM CHLORIDE 0.9% 1,000 ML IV ONE (04:21)
--- NOTE | 2020-07-07 04:22 | ED ---
Female Urogenital HPI - General Source: patient, family, RN notes reviewed, old records reviewed Limitations: no limitations - History of Present Illness MD Complaint: vaginal bleeding (Spotting) -: hour(s) Radiation: suprapubic Severity: mild Severity scale (1-10): 3 Consistency: constant Improves with: none Worsens with: none Patient : Yes Associated Symptoms: denies other symptoms <Guillermo Pop - Last Filed: 07/07/20 05:53> <Emerson House - Last Filed: 07/07/20 07:54> - General Chief complaint: Vaginal Bleeding Stated complaint: Vaginal discharge, 9wks preg Time Seen by Provider: 07/07/20 04:12 - History of Present Illness Initial comments: This is a 30-year-old female DF she presents today for evaluation of vaginal bleeding vaginal bleeding of . Patient has spotting specimen she wipes. Patient thinks she is about 8 weeks previous follow-up with OB no prior ultrasounds. No prior pregnancies. No recent nausea vomiting or diarrhea. No fevers, no other significant complaints (Guillermo Pop) - Related Data Previous Rx's Medication Instructions Recorded Folic Acid 1 mg PO DAILY #30 tab 08/05/17 Multivitamins, Thera [Multivitamin 1 tab PO DAILY #30 tablet 08/05/17 (formulary)] Thiamine [Vitamin B-1] 100 mg PO DAILY #30 tablet 08/05/17 levETIRAcetam [Keppra] 1,000 mg PO BID #60 tab 08/05/17 Tobramycin 0.3% Ophth Oint [Tobrex 1 applic LEFT EYE TID #1 tube 12/28/17 0.3% Ophth Oint] Allergies Allergy/AdvReac Type Severity Reaction Status Date / Time morphine Allergy Intermediate Rash/Hives Verified 07/07/20 04:18 chocolate flavor Allergy Rash/Hives Verified 07/07/20 04:18 Review of Systems ROS Other: All systems not noted in ROS Statement are negative. <Guillermo Pop - Last Filed: 07/07/20 05:53> ROS Other: All systems not noted in ROS Statement are negative. <Emerson House - Last Filed: 07/07/20 07:54> ROS Statement: Those systems with pertinent positive or pertinent negative responses have been documented in the HPI. Past Medical History Past Medical History: Skin Disorder Additional Past Medical History / Comment(s): cholelithiasis and psoriasis History of Any Multi-Drug Resistant Organisms: None Reported Past Surgical History: Cholecystectomy Additional Past Surgical History / Comment(s): bilateral knee surgery 1999, 2000 Past Anesthesia/Blood Transfusion Reactions: No Reported Reaction Past Psychological History: Anxiety, Depression Smoking Status: Never smoker Past Alcohol Use History: None Reported Past Drug Use History: None Reported - Past Family History Mother Family Medical History: No Reported History Additional Family Medical History / Comment(s): Mother is healthy Father Family Medical History: No Reported History Additional Family Medical History / Comment(s): Father is healthy <Guillermo Pop - Last Filed: 07/07/20 05:53> General Exam Limitations: no limitations General appearance: alert, in no apparent distress Head exam: Present: atraumatic, normocephalic, normal inspection Eye exam: Present: normal appearance, PERRL, EOMI. Absent: scleral icterus, conjunctival injection, periorbital swelling ENT exam: Present: normal exam, mucous membranes moist Neck exam: Present: normal inspection. Absent: tenderness, meningismus, lymphadenopathy Respiratory exam: Present: normal lung sounds bilaterally. Absent: respiratory distress, wheezes, rales, rhonchi, stridor Cardiovascular Exam: Present: regular rate, normal rhythm, normal heart sounds. Absent: systolic murmur, diastolic murmur, rubs, gallop, clicks GI/Abdominal exam: Present: soft, normal bowel sounds. Absent: distended, tenderness, guarding, rebound, rigid Extremities exam: Present: normal inspection, full ROM, normal capillary refill. Absent: tenderness, pedal edema, joint swelling, calf tenderness Back exam: Present: normal inspection Neurological exam: Present: alert, oriented X3, CN II-XII intact Psychiatric exam: Present: normal affect, normal mood Skin exam: Present: warm, dry, intact, normal color. Absent: rash <Guillermo Pop - Last Filed: 07/07/20 05:53> Course <Guillermo Pop Last Filed: 07/07/20 05:53> Vital Signs 07/07/20 07/07/20 04:13 06:35 Temperature 99 F Pulse Rate 82 84 Respiratory 18 18 Rate Blood Pressure 136/86 134/71 O2 Sat by Pulse 99 100 Oximetry - Reevaluation(s) Reevaluation #1: 07/07/20 05:53 Medical record is reviewed (Guillermo Pop) Reevaluation #2: 07/07/20 05:54 We'll get ultrasound of patient this morning (Guillermo Pop) Medical Decision Making - Lab Data Result diagrams: 07/07/20 04:52 07/07/20 04:52 <Guillermo Pop - Last Filed: 07/07/20 05:53> - Lab Data Result diagrams: 07/07/20 04:52 07/07/20 04:52 <Emerson House - Last Filed: 07/07/20 07:54> - Medical Decision Making 30-year-old female presenting with some very light vaginal spotting. Ultrasound performed showing twin gestation with normal heart tones, and subchorionic hemorrhage measuring 5.4 x 2.2 x 3.5. Patient has O+ blood. Hemoglobin is stable. I did discuss case with Dr. Ordaz covering for Dr. Gutierres to arrange close follow-up for this patient. (Emerson House) - Lab Data Lab Results 07/07/20 07/07/20 07/07/20 Range/Units 04:52 04:52 04:52 WBC 13.4 H (3.8-10.6) k/uL RBC 5.03 (3.80-5.40) m/uL Hgb 14.7 (11.4-16.0) gm/dL Hct 44.1 (34.0-46.0) % MCV 87.8 (80.0-100.0) fL MCH 29.3 (25.0-35.0) pg MCHC 33.4 (31.0-37.0) g/dL RDW 13.3 (11.5-15.5) % Plt Count 311 (150-450) k/uL Neutrophils % 74 % Lymphocytes % 18 % Monocytes % 4 % Eosinophils % 4 % Basophils % 0 % Neutrophils # 9.8 H (1.3-7.7) k/uL Lymphocytes # 2.4 (1.0-4.8) k/uL Monocytes # 0.6 (0-1.0) k/uL Eosinophils # 0.5 (0-0.7) k/uL Basophils # 0.0 (0-0.2) k/uL PT 9.4 (9.0-12.0) sec INR 0.9 (<1.2) APTT 23.1 (22.0-30.0) sec Sodium 135 L (137-145) mmol/L Potassium 3.4 L (3.5-5.1) mmol/L Chloride 106 (98-107) mmol/L Carbon Dioxide 21 L (22-30) mmol/L Anion Gap 8 mmol/L BUN 5 L (7-17) mg/dL Creatinine 0.46 L (0.52-1.04) mg/dL Est GFR (CKD-EPI)AfAm >90 (>60 ml/min/1.73 sqM) Est GFR (CKD-EPI)NonAf >90 (>60 ml/min/1.73 sqM) Glucose 89 (74-99) mg/dL Calcium 9.1 (8.4-10.2) mg/dL Total Bilirubin 0.4 (0.2-1.3) mg/dL AST 26 (14-36) U/L ALT 40 H (4-34) U/L Alkaline Phosphatase 75 (38-126) U/L Total Protein 6.8 (6.3-8.2) g/dL Albumin 3.9 (3.5-5.0) g/dL HCG, Quant 729681.0 mIU/mL Urine Color Urine Appearance (Clear) Urine pH (5.0-8.0) Ur Specific [place] (1.001-1.035) Urine Protein (Negative) Urine Glucose (UA) (Negative) Urine Ketones (Negative) Urine Blood (Negative) Urine Nitrite (Negative) Urine Bilirubin (Negative) Urine Urobilinogen (<2.0) mg/dL Ur Leukocyte Esterase (Negative) Urine RBC (0-5) /hpf Urine WBC (0-5) /hpf Ur Squamous Epith Cells (0-4) /hpf Urine Mucus (None) /hpf Blood Type Blood Type Recheck Bld Type Recheck Status 07/07/20 07/07/20 Range/Units 04:52 04:52 WBC (3.8-10.6) k/uL RBC (3.80-5.40) m/uL Hgb (11.4-16.0) gm/dL Hct (34.0-46.0) % MCV (80.0-100.0) fL MCH (25.0-35.0) pg MCHC (31.0-37.0) g/dL RDW (11.5-15.5) % Plt Count (150-450) k/uL Neutrophils % % Lymphocytes % % Monocytes % % Eosinophils % % Basophils % % Neutrophils # (1.3-7.7) k/uL Lymphocytes # (1.0-4.8) k/uL Monocytes # (0-1.0) k/uL Eosinophils # (0-0.7) k/uL Basophils # (0-0.2) k/uL PT (9.0-12.0) sec INR (<1.2) APTT (22.0-30.0) sec Sodium (137-145) mmol/L Potassium (3.5-5.1) mmol/L Chloride (98-107) mmol/L Carbon Dioxide (22-30) mmol/L Anion Gap mmol/L BUN (7-17) mg/dL Creatinine (0.52-1.04) mg/dL Est GFR (CKD-EPI)AfAm (>60 ml/min/1.73 sqM) Est GFR (CKD-EPI)NonAf (>60 ml/min/1.73 sqM) Glucose (74-99) mg/dL Calcium (8.4-10.2) mg/dL Total Bilirubin (0.2-1.3) mg/dL AST (14-36) U/L ALT (4-34) U/L Alkaline Phosphatase (38-126) U/L Total Protein (6.3-8.2) g/dL Albumin (3.5-5.0) g/dL HCG, Quant mIU/mL Urine Color Yellow Urine Appearance Clear (Clear) Urine pH 6.5 (5.0-8.0) Ur Specific [place] 1.021 (1.001-1.035) Urine Protein Negative (Negative) Urine Glucose (UA) Negative (Negative) Urine Ketones Negative (Negative) Urine Blood Moderate H (Negative) Urine Nitrite Negative (Negative) Urine Bilirubin Negative (Negative) Urine Urobilinogen <2.0 (<2.0) mg/dL Ur Leukocyte Esterase Negative (Negative) Urine RBC <1 (0-5) /hpf Urine WBC 2 (0-5) /hpf Ur Squamous Epith Cells 6 H (0-4) /hpf Urine Mucus Few H (None) /hpf Blood Type O Positive Blood Type Recheck O Pos Bld Type Recheck Status No Disposition <Guillermo Pop - Last Filed: 07/07/20 05:53> Is patient prescribed a controlled substance at d/c from ED?: No Time of Disposition: 07:54 <Emerson House - Last Filed: 07/07/20 07:54> Clinical Impression: Twin gestation in first trimester, Subchorionic hematoma in first trimester Disposition: HOME SELF-CARE Condition: Good Instructions (If sedation given, give patient instructions): First Trimester (ED), Miscarriage (ED) Referrals: Edd Capellan MD [Primary Care Provider] - 1-2 days Rosa Gutierres DO [Doctor of Osteopathic Medicine] - 1-2 days
[2020-07-07 05:05] LABS: Appearance,Urine Clear (Clear); Basophils % (A) 0 %; Bilirubin,Urine Negative (Negative); Blood,Urine Moderate (Negative); Color,Urine Yellow; Eosinophils # (A) 0.5 k/uL (0-0.7); Eosinophils % (A) 4 %; Glucose,Urine (UA) Negative (Negative); HCT 44.1 % (34.0-46.0); HGB 14.7 gm/dL (11.4-16.0); Ketones,Urine Negative (Negative); Leukocyte Esterase,Urine Negative (Negative); Lymphocytes # (A) 2.4 k/uL (1.0-4.8); Lymphocytes % (A) 18 %; MCH 29.3 pg (25.0-35.0); MCHC 33.4 g/dL (31.0-37.0); MCV 87.8 fL (80.0-100.0); Mean Platelet Volume 6.8; Monocytes # (A) 0.6 k/uL (0-1.0); Monocytes % (A) 4 %; Mucus,Urine Few /hpf; Neutrophils # (A) 9.8 k/uL (1.3-7.7); Neutrophils % (A) 74 %; Nitrite,Urine Negative (Negative); PH, Urine 6.5 (5.0-8.0); Platelet Count 311 k/uL (150-450); Protein,Urine Negative (Negative); RBC 5.03 m/uL (3.80-5.40); RBC,Urine <1 /hpf (0-5); RDW 13.3 % (11.5-15.5); Specific Gravity,Urine 1.021 (1.001-1.035); Squamous Epithelial Cell,Urine 6 /hpf (0-4); Urobilinogen,Urine <2.0 mg/dL (<2.0); WBC 13.4 k/uL (3.8-10.6); WBC,Urine 2 /hpf (0-5)
[2020-07-07 05:14] LABS: ALT 40 U/L (4-34); AST 26 U/L (14-36); African American GFR (CKD) >90 (>60 ml/min/1.73 sqM); Albumin 3.9 g/dL (3.5-5.0); Alkaline Phosphatase 75 U/L (38-126); Anion Gap 8 mmol/L; Blood Urea Nitrogen 5 mg/dL (7-17); Calcium 9.1 mg/dL (8.4-10.2); Carbon Dioxide 21 mmol/L (22-30); Chloride 106 mmol/L (98-107); Glucose 89 mg/dL (74-99); Non-African American GFR(CKD) >90 (>60 ml/min/1.73 sqM); Potassium 3.4 mmol/L (3.5-5.1); Sodium 135 mmol/L (137-145); Total Bilirubin 0.4 mg/dL (0.2-1.3); Total Protein 6.8 g/dL (6.3-8.2)
[2020-07-07 05:16] LABS: INR 0.9 (<1.2); Partial Thromboplastin Time 23.1 sec (22.0-30.0); Prothrombin Time 9.4 sec (9.0-12.0)
--- NOTE | 2020-07-07 07:40 | US ---
EXAMINATION TYPE: US OB <= 14 wk twins DATE OF EXAM: 07/07/2020 COMPARISON: NONE CLINICAL HISTORY: Spotting. EXAM PERFORMED: Transabdominal (TA) EXAM MEASUREMENTS: GESTATIONAL AGE / DATING Physician Established: Not yet established Dates by LMP: (8 weeks/4 days) EDC: 02/12/2021 Dates by Current Scan for Baby A: (7 weeks/6 days) EDC: 02/17/2021 Dates by Current Scan for Baby B: (7 weeks/6 days) EDC: 02/17/2021 MATERNAL ANATOMY Uterus: 13.0 x 5.7 x 7.7 cm Right Ovary: 5.7 x 4.2 x 5.2 cm Left Ovary: 4.8 x 3.3 x 4.0 cm Post CDS / Adnexa: wnl Presence of free fluid: wnl Presence of subchorionic bleed: Yes, measuring 5.4 x 2.2 x 3.5 cm Presence of two separate gestational sacs: Yes GESTATION / SURVEY TWIN A CRL: 1.5 (wks/days) Yolk Sac (normal less than 6mm): 3 mm Heart Rate: 145 bpm Rhythm: Normal IUP: Viable IUP TWIN B CRL: 1.5 (wks/days) Yolk Sac (normal less than 6mm): 4 mm Heart Rate: 136 bpm Rhythm: Normal IUP: Viable IUP Date of LMP: 05/08/2020 Beta HcG (if available): 120,852 Viable twin IUP with an ALMA 02/17/2021 by this exam. Subchorionic bleed visualized measuring 5.4 x 2. 2 x 3.5 cm. Cyst visualized right ovary measuring 2.5 x 2.1 x 2.3 cm. Cystic area visualized left ova ry measuring 2.3 x 2.3 x 2.6 cm IMPRESSION: 1. Viable twin as noted above. 2. Subchorionic hemorrhage.
[2020-07-07 08:17] VITALS: BP 145/90; PULSE 78; TEMP 98.2
== END 2020-07-07 08:15 | disposition home or self-care (01) ==
LOC: EC 04:07
DX: O20.8 Other hemorrhage in early pregnancy (principal); Z3A.08 8 weeks gestation of pregnancy; Z37.2 Twins, both liveborn; Z88.5 Allergy status to narcotic agent; Z91.018 Allergy to other foods
CPT/HCPCS: 36415; 76801; 76802; 80053; 81001; 84702; 85025; 85610; 85730; 86900; 86901; 96360; 99284

== ENCOUNTER 2020-12-13 16:26 | Outpatient (CLI) | payer MEDICARE, OTHER ==
[2020-12-13] MEDS ORDERED: LACTATED RINGERS 1,000 ML IV SCH (17:15)
[2020-12-13 17:25] VITALS: BP 127/75; PULSE 120; RESP 18; TEMP 97.4
[2020-12-13 17:33] LABS: Appearance,Urine Cloudy (Clear); Bacteria,Urine Rare /hpf; Bilirubin,Urine Negative (Negative); Blood,Urine Small (Negative); Color,Urine Yellow; Glucose,Urine (UA) Negative (Negative); Ketones,Urine Trace (Negative); Leukocyte Esterase,Urine Moderate (Negative); Mucus,Urine Moderate /hpf; Nitrite,Urine Negative (Negative); PH, Urine 6.5 (5.0-8.0); Protein,Urine 1+ (Negative); RBC,Urine 63 /hpf (0-5); Specific Gravity,Urine 1.025 (1.001-1.035); Squamous Epithelial Cell,Urine 4 /hpf (0-4); Urobilinogen,Urine <2.0 mg/dL (<2.0); WBC,Urine 7 /hpf (0-5)
--- NOTE | 2020-12-13 18:08 | US ---
EXAMINATION TYPE: US OB limited DATE OF EXAM: 12/13/2020 COMPARISON: NONE CLINICAL HISTORY: triplet gestation, position and heart beats. Triplet gestation, position and heart rate. EXAM PERFORMED: Transabdominal (TA) GESTATIONAL AGE / DATING Physician Established: (31 weeks/1 day) EDC: 02/13/2021 No growth performed on today?s study per ordering physician SURVEY Baby A: HEART RATE: 165 bpm RHYTHM: Normal POSITION: Breech, Maternal Left. Baby B: HEART RATE: 143 bpm RHYTHM: Normal POSITION: Cephalic, Maternal Right. Baby C: HEART RATE: 149 bpm RHYTHM: Normal POSITION: Horizontal, Head Maternal Left. Exam slightly limited due to patient body habitus. IMPRESSION: heart rates as above. Amniotic fluid appears adequate. Fetus A has breech presentat ion. Fetus B has cephalic presentation on the right side. Fetus C has transverse lie and the he ad is on the left side.
--- NOTE | 2020-12-23 10:08 | P.MSEPDOC ---
Presenting Problems - Arrival Data Date of Arrival on Unit: 12/13/20 Time of Arrival on Unit: 16:26 Mode of Transport: Portable - Complaint OB-Reason for Admission/Chief Complaint: Other Comment: pt here with c/o lower back pain and lower abd cramping since 12/11 when she had. a cervical exam and was 1 cm dilated, pt is seeing doctors at the [facility] for triplet , pt denies vb/lof, reports + fm x3, pt reports. occasional high blood pressures with but denies being on medication for it, pt. has a hx of pcos and seizures, last seizure was in 2017 Medical History - Information : 3 Para: 2 Term: 2 : 0 Abortions: Spontaneous or Elective: 0 Number of Living Children: 2 - Gestational Age Gestational Age by ALMA (wks/days): 31 Weeks and 1 Days - History Complications: Multiple Comment: triplet , according to pt fetus A + B are "underweight" Review of Systems - Review of Systems Constitutional: No problems Breast: No problems ENT: No problems Cardiovascular: No problems Respiratory: No problems Gastrointestinal: No problems Genitourinary: No problems Musculoskeletal: No problems Neurological: No problems Skin: No problems Vital Signs - Temperature Temperature: 97.4 F Temperature Source: Temporal Artery Scan - Pulse Right Brachial Pulse Rate: 120 Pulse Assessment Method: Automatic Cuff - Respirations Respiratory Rate: 18 Oxygen Delivery Method: Room Air O2 Sat by Pulse Oximetry: 98 - Blood Pressure Right Arm Blood Pressure: 127/75 Blood Pressure Mean: 92 Blood Pressure Source: Automatic Cuff Medical Screen Scoring (Pre) - Cervical Exam Dilation: 1-3 cm = 1 Membranes: Intact - Uterine Contractions Frequency: < 36 weeks = 6 Duration: > 40 seconds = 2 Intensity: N/A - Maternal Vital Signs Maternal Temperature: N/A Maternal Blood Pressure: N/A Signs of Preeclampsia: N/A Maternal Respirations: N/A - Maternal Trauma Maternal Trauma: N/A - Total Score - Baby A Total Score - Baby A: 9 - Total Score - Baby B Total Score - Baby B: 9 - Total Score - Baby C Total Score - Baby C: 9 - Level of Risk - Baby A Level of Risk - Baby A: Medium (6-9) - Level of Risk - Baby B Level of Risk - Baby B: Medium (6-9) - Level of Risk - Baby C Level of Risk - Baby C: Medium (6-9) Physician Notification (Pre) - Physician Notified Physician Notified Date: 12/13/20 Physician Notified Time: 16:40 New Order Received: Yes Medical Screen Scoring (Post) - Cervical Exam Dilation: 1-3 cm = 1 Membranes: Intact - Uterine Contractions Frequency: > 5 minutes apart = 1 Duration: > 40 seconds = 2 Intensity: N/A - Maternal Vital Signs Maternal Temperature: N/A Maternal Blood Pressure: N/A Signs of Preeclampsia: N/A Maternal Respirations: N/A - Maternal Trauma Maternal Trauma: N/A - Assessment - Baby A Heart Rate: 165 - Assessment - Baby B Baseline - FHR: 143 - Assessment - Baby C Baseline FHR: 149 - Total Score Total Score - Baby A: 4 Total Score - Baby B: 4 Total Score - Baby C: 4 - Post Treatment Level of Risk Post Treatment Level of Risk - Baby A: Low (0-5) Post Treatment Level of Risk - Baby B: Low (0-5) Post Treatment Level of Risk - Baby C: Low (0-5) Physician Notification (Post) - Physician Notified Physician Notified Date: 12/13/20 Physician Notified Time: 18:19 New Order Received: Yes (dc home after completion of iv bolus) Disposition - Disposition OB Disposition: Discharge to home, Written follow up instructions reviewed Discharge Date: 12/13/20 Discharge Time: 18:43 I agree with the RN Medical Screening Exam: Yes Physician's MSE Comment: I have neither seen nor examined this patient. Case reviewed; plan agreed upon as documented in EMR&OBIX.: Yes Diagnosis: RELATED CONDITIONS, UNSPECIFIED, THIRD TRIMESTER
== END 2020-12-13 18:44 | disposition home or self-care (01) ==
LOC: FBPOP 16:26
PROVIDERS: ATTEND Obstetrics & Gynecology
DX: O26.93 Pregnancy related conditions, unspecified, third trimester (principal); O32.1XX0 Maternal care for breech presentation, not applicable or unspecified; O32.2XX0 Maternal care for transverse and oblique lie, not applicable or unspecified; Z3A.31 31 weeks gestation of pregnancy
CPT/HCPCS: 96360; 82731; 81001; 76815; G0463; 99214

== ENCOUNTER 2020-12-15 15:50 | Emergency (ER) | payer MEDICARE, OTHER ==
--- NOTE | 2020-12-15 16:24 | ED ---
Lower Extremity Injury HPI - General Chief Complaint: Extremity Injury, Lower Stated Complaint: Fall, R Leg Injury Time Seen by Provider: 12/15/20 16:03 Source: patient Mode of arrival: wheelchair Limitations: no limitations - History of Present Illness Initial Comments: 30-year-old female, 31 weeks presents emergency Department with a chief complaint of a leg injury. Patient reports this occurred about half hour prior to arrival. Patient states she tripped over the dog's leash and went down on her right knee. Denies any injury to the abdomen. Patient reports pain in the suprapatellar region but denies any ecchymosis, erythema or swelling. Reports that she applied ice compress with some improvement in symptoms. Did report taken Tylenol prior to arrival. Denies any numbness or tingling. - Related Data Home Medications Medication Instructions Recorded Confirmed Pnv No.[id number]/Ferrous Fum/Folic AC 1 tab PO DAILY 12/13/20 12/15/20 [ Multivitamin Tablet] metFORMIN HCL 500 mg PO TID 12/13/20 12/15/20 Acetaminophen Tab [Tylenol] 650 mg PO Q4H PRN 12/15/20 12/15/20 Previous Rx's Medication Instructions Recorded levETIRAcetam [Keppra] 1,000 mg PO BID #60 tab 08/05/17 Allergies Allergy/AdvReac Type Severity Reaction Status Date / Time morphine Allergy Intermediate Rash/Hives Verified 12/15/20 16:34 chocolate flavor Allergy Rash/Hives Verified 12/15/20 16:34 Review of Systems ROS Statement: Those systems with pertinent positive or pertinent negative responses have been documented in the HPI. ROS Other: All systems not noted in ROS Statement are negative. Past Medical History Past Medical History: Seizure Disorder, Skin Disorder Additional Past Medical History / Comment(s): cholelithiasis and psoriasis History of Any Multi-Drug Resistant Organisms: None Reported Past Surgical History: Cholecystectomy, Orthopedic Surgery Additional Past Surgical History / Comment(s): bilateral knee surgery 1999, 2000 Past Anesthesia/Blood Transfusion Reactions: No Reported Reaction Past Psychological History: Anxiety, Depression Smoking Status: Never smoker Past Alcohol Use History: None Reported Past Drug Use History: None Reported - Past Family History Mother Family Medical History: No Reported History Additional Family Medical History / Comment(s): Mother is healthy Father Family Medical History: No Reported History Additional Family Medical History / Comment(s): Father is healthy General Exam Limitations: no limitations General appearance: alert, in no apparent distress Head exam: Present: atraumatic, normocephalic, normal inspection Eye exam: Present: normal appearance, PERRL, EOMI Pupils: Present: normal accommodation ENT exam: Present: normal exam, normal oropharynx, mucous membranes moist Neck exam: Present: normal inspection, full ROM. Absent: tenderness Respiratory exam: Present: normal lung sounds bilaterally. Absent: respiratory distress Cardiovascular Exam: Present: regular rate, normal rhythm, normal heart sounds Extremities exam: Present: normal inspection, full ROM, tenderness (suprapatellar tenderness in the right leg), normal capillary refill, other (palpable dorsalis pedis and posterior tibials bilaterally.). Absent: pedal edema, joint swelling, calf tenderness Back exam: Present: normal inspection, full ROM Neurological exam: Present: alert, oriented X3 Psychiatric exam: Present: normal affect, normal mood Skin exam: Present: warm, dry, intact, normal color Course Vital Signs 12/15/20 12/15/20 12/15/20 15:54 17:38 17:52 Temperature 98.2 F 97.9 F Pulse Rate 120 H 106 H Respiratory 18 20 Rate Blood Pressure 120/83 153/73 160/98 O2 Sat by Pulse 97 98 Oximetry 12/15/20 18:09 Temperature Pulse Rate Respiratory 16 Rate Blood Pressure 140/89 O2 Sat by Pulse 98 Oximetry Medical Decision Making - Medical Decision Making 30-year-old female presents to emergency department with chief complaint of a knee injury. On physical examination, patient has tenderness in the right suprapatellar region. She otherwise has full range of motion. Neurovascularly intact. Initially patient had acceptable blood pressure with tachycardia. On reevaluation the blood pressure has increased but the tachycardia had resolved. 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 She does report white coat syndrome. I discussed the case with Dr. Godfrey who states the patient is cleared to be discharged. Return parameters discussed the patient is an attending agreeable. Disposition Clinical Impression: Injury of right leg Disposition: HOME SELF-CARE Condition: Stable Instructions (If sedation given, give patient instructions): Knee Pain (ED) Additional Instructions: apply ice compress. Follow with their primary care physician. Return to emergency department if symptoms worsen. Is patient prescribed a controlled substance at d/c from ED?: No Referrals: Edd Capellan MD [Primary Care Provider] - 1-2 days Time of Disposition: 18:17
--- NOTE | 2020-12-15 17:09 | XR ---
EXAMINATION TYPE: XR knee complete RT DATE OF EXAM: 12/15/2020 COMPARISON: NONE HISTORY: Knee pain TECHNIQUE: 3 views FINDINGS: I see no fracture nor dislocation. Knee joint spaces are fairly normal. There are intramedu llary rods in the distal femur. Patella is intact. There is no sign of joint effusion. IMPRESSION: Negative left knee exam.
[2020-12-15 17:39] VITALS: PULSE 106; TEMP 97.9
[2020-12-15 18:10] VITALS: BP 140/89; RESP 16
== END 2020-12-15 18:25 | disposition home or self-care (01) ==
LOC: EC 15:50
DX: O9A.213 Injury, poisoning and certain other consequences of external causes complicating pregnancy, third trimester (principal); S89.91XA Unspecified injury of right lower leg, initial encounter; Z3A.31 31 weeks gestation of pregnancy; Z88.5 Allergy status to narcotic agent; Z91.018 Allergy to other foods; Z90.49 Acquired absence of other specified parts of digestive tract; W01.0XXA Fall on same level from slipping, tripping and stumbling without subsequent striking against object, initial encounter; Y92.008 Other place in unspecified non-institutional (private) residence as the place of occurrence of the external cause
CPT/HCPCS: 99283

== ENCOUNTER 2022-02-07 14:35 | Emergency (ER) | payer MEDICARE, OTHER ==
[2022-02-07 14:53] VITALS: TEMP 98
[2022-02-07 16:01] LABS: Basophils # (A) 0.1 k/uL (0-0.2); Basophils % (A) 1 %; Eosinophils # (A) 0.2 k/uL (0-0.7); Eosinophils % (A) 3 %; HGB 14.2 gm/dL (11.4-16.0); Lymphocytes # (A) 1.7 k/uL (1.0-4.8); Lymphocytes % (A) 20 %; MCHC 32.9 g/dL (31.0-37.0); MCV 88.2 fL (80.0-100.0); Mean Platelet Volume 6.9; Monocytes # (A) 0.8 k/uL (0-1.0); Monocytes % (A) 9 %; Neutrophils # (A) 5.4 k/uL (1.3-7.7); Neutrophils % (A) 65 %; Platelet Count 279 k/uL (150-450); RBC 4.87 m/uL (3.80-5.40); RDW 13.3 % (11.5-15.5); WBC 8.3 k/uL (3.8-10.6)
[2022-02-07 16:11] LABS: Appearance,Urine Cloudy (Clear); Bacteria,Urine Rare /hpf; Bilirubin,Urine Negative (Negative); Blood,Urine Negative (Negative); Color,Urine Yellow; Glucose,Urine (UA) Negative (Negative); Ketones,Urine Negative (Negative); Leukocyte Esterase,Urine Small (Negative); Mucus,Urine Many /hpf; Nitrite,Urine Negative (Negative); Protein,Urine Trace (Negative); RBC,Urine 1 /hpf (0-5); Specific Gravity,Urine 1.027 (1.001-1.035); Squamous Epithelial Cell,Urine 18 /hpf (0-4); Urobilinogen,Urine <2.0 mg/dL (<2.0); WBC,Urine 5 /hpf (0-5)
[2022-02-07 17:47] LABS: Partial Thromboplastin Time 24.8 sec (22.0-30.0); Prothrombin Time 10.4 sec (9.0-12.0)
--- NOTE | 2022-02-07 17:47 | US ---
EXAMINATION TYPE: Transabdominal DATE OF EXAM: 02/07/2022 4:45 PM COMPARISON: NONE CLINICAL HISTORY: vaginal bleeding. EXAM PERFORMED: Transvaginal (TV) and Transabdominal (TA) EXAM MEASUREMENTS: GESTATIONAL AGE / DATING Physician Established: Not yet established Dates by LMP: (6 weeks/3 days) EDC: 09-30-22 Dates by First Scan: No previous this is first scan Dates by Current Scan for: Unable to date by today's study MATERNAL ANATOMY Morbidly obese patient. 5'4" 336lbs. Technically difficult, very limited study. Uterus: 11.6 x 5.2 x 5.6cm Right Ovary: not visualized Left Ovary: not visualized Post CDS / Adnexa: wnl Possible grossly thickened endometrium. Due to patients body habitus and empty bladder this was diffi cult to assess GESTATION / SURVEY IUP: No IUP seen at this time Date of LMP: 12-24-21 Beta HcG (if available): 147 IMPRESSION: Limited evaluation of the uterus without visualization of gestational sac. Given the positive beta hC G this could represent failed . Continued stranding of beta-hCG is recommended as well as cl ose clinical follow-up.
[2022-02-07 18:12] VITALS: RESP 16
--- NOTE | 2022-02-07 18:45 | ED ---
General Adult HPI - General Chief complaint: Abdominal Pain Stated complaint: Abd pain-7weeks preg. Time Seen by Provider: 02/07/22 15:31 Source: patient, RN notes reviewed, old records reviewed Mode of arrival: ambulatory Limitations: no limitations - History of Present Illness Initial comments: Patient is a 31-year-old female who presents emergency Department approximately 6-7 weeks' based on LMP concerned due to abdominal cramping and spot ting. She states she has been spotting for multiple days to weeks. This typical for all of her previous pregnancies. However today she notes some abdominal cramping in addition to the spotting. Is following up with an [facility]ER. No known ultrasound yet. Describes the cramping as typical abdominal cramping for her menstrual cycle. She endorses a mild amount of vaginal spotting, which is normal for her. Denies any clots or large tissue pieces with the bleeding. Denies any dysuria or hematuria. Denies any other acute complaints at the nausea, vomiting, chest pain, shortness breath. Is not on blood thinners. Presents over concern for vaginal bleeding. - Related Data Home Medications Medication Instructions Recorded Confirmed Pnv No.95/Ferrous Fum/Folic AC 1 tab PO DAILY 12/13/20 02/07/22 [ Multivitamin Tablet] metFORMIN HCL 500 mg PO BID 12/13/20 02/07/22 Acetaminophen Tab [Tylenol] 650 mg PO Q4H PRN 12/15/20 02/07/22 Previous Rx's Medication Instructions Recorded levETIRAcetam [Keppra] 1,000 mg PO BID #60 tab 08/05/17 Allergies Allergy/AdvReac Type Severity Reaction Status Date / Time morphine Allergy Intermediate Rash/Hives Verified 02/07/22 18:26 chocolate flavor Allergy Rash/Hives Verified 02/07/22 18:26 Review of Systems ROS Statement: Those systems with pertinent positive or pertinent negative responses have been documented in the HPI. Review of Systems: CONST: Denies fever EYES: Denies blurry vision ENT: Denies nasal congestion C/V: Denies Chest pain RESP: Denies shortness of breath GI: Endorses abdominal cramping. : Denies dysuria SKIN: Denies rash. MSK: Denies joint pain. NEURO: Denies headache ROS Other: All systems not noted in ROS Statement are negative. Past Medical History Past Medical History: Seizure Disorder, Skin Disorder Additional Past Medical History / Comment(s): cholelithiasis and psoriasis History of Any Multi-Drug Resistant Organisms: None Reported Past Surgical History: Cholecystectomy, Orthopedic Surgery Additional Past Surgical History / Comment(s): bilateral knee surgery 1999, 2000 Past Anesthesia/Blood Transfusion Reactions: No Reported Reaction Past Psychological History: Anxiety, Depression Smoking Status: Never smoker Past Alcohol Use History: None Reported Past Drug Use History: None Reported - Past Family History Mother Family Medical History: No Reported History Additional Family Medical History / Comment(s): Mother is healthy Father Family Medical History: No Reported History Additional Family Medical History / Comment(s): Father is healthy General Exam - General Exam Comments Initial Comments: General: Appears in no acute distress. HEAD: Normal with no signs of head trauma. EYES: PERRLA, EOMI, conjunctiva normal, no discharge. ENT: Hearing grossly intact, normal oropharynx. RESPIRATORY: Clear breath sounds bilaterally. No wheezes, rales, or rhonchi. C/V: Regular rate and rhythm. S1 and S2 auscultated, no edema, peripheral pulses 2+ and intact throughout ABD: Abd is soft, nontender, nondistended. No guarding. No peritoneal signs. No rebound tenderness. EXT: Normal range of motion, no obvious deformity SKIN: No rashes or lesions observed on exposed skin. NEURO: Alert and oriented 4. Limitations: no limitations Course Vital Signs 02/07/22 02/07/22 02/07/22 14:52 18:00 18:58 Temperature 98 F Pulse Rate 125 H 110 H 116 H Respiratory 18 16 16 Rate Blood Pressure 162/106 148/98 166/100 O2 Sat by Pulse 99 95 97 Oximetry Medical Decision Making - Medical Decision Making Based the patient's presentation and physical exam, I'm concerned for threatened miscarriage. She is early in her with vaginal bleeding and cramping. We will obtain basic laboratory studies, type and screen, as well as an ultrasound and quantitative beta hCG. She refuses analgesia at this time. She was in agreement this plan. Laboratory studies were remarkable for a normal hemoglobin, a contaminated urinalysis, as well as a low quantitative hCG of 148. This is lower than expected for 6 week . Ultrasound uterus revealed no definitive IUP. No gestational sac was observed. On reevaluation, discussed the findings with the patient. I explained to her that there are multiple possibilities, however I'm concerned for either comp leted or threatened miscarriage. Is also possible she is not is far along in the current is she initially expected. There may be too early to see the definitive IUP at this time. I advised that she follow up with her [facility]ER or return to the emergency department in 3-4 days for repeat beta hCG testing and possible ultrasound. She was in agreement this plan. She will prefer to follow up with her [facility]ER but will come to the emergency department if she cannot. She expressed understanding that she needs to obtain repeat laboratory study testing to confirm completed miscarriage versus of unknown location. I explained to her with an ectopic as. She expressed un derstanding of these instructions. I instructed the patient to follow up with their M[facility] STITCHER in the next 3 days,. I explained that the patient should return to the emergency department if they experience any worsening symptoms. Strict return precautions were discussed with the patient. The patient expressed understanding of these instructions. I answered all questions that the patient had. The patient was discharged home in fair condition with their prescriptions and follow up information. - Lab Data Result diagrams: 02/07/22 15:47 Lab Results 02/07/22 02/07/22 02/07/22 Range/Units 15:47 15:47 15:47 WBC 8.3 (3.8-10.6) k/uL RBC 4.87 (3.80-5.40) m/uL Hgb 14.2 (11.4-16.0) gm/dL Hct 43.0 (34.0-46.0) % MCV 88.2 (80.0-100.0) fL MCH 29.0 (25.0-35.0) pg MCHC 32.9 (31.0-37.0) g/dL RDW 13.3 (11.5-15.5) % Plt Count 279 (150-450) k/uL MPV 6.9 Neutrophils % 65 % Lymphocytes % 20 % Monocytes % 9 % Eosinophils % 3 % Basophils % 1 % Neutrophils # 5.4 (1.3-7.7) k/uL Lymphocytes # 1.7 (1.0-4.8) k/uL Monocytes # 0.8 (0-1.0) k/uL Eosinophils # 0.2 (0-0.7) k/uL Basophils # 0.1 (0-0.2) k/uL PT (9.0-12.0) sec INR (<1.2) APTT (22.0-30.0) sec HCG, Quant 148.7 mIU/mL Urine Color Urine Appearance (Clear) Urine pH (5.0-8.0) Ur Specific [place] (1.001-1.035) Urine Protein (Negative) Urine Glucose (UA) (Negative) Urine Ketones (Negative) Urine Blood (Negative) Urine Nitrite (Negative) Urine Bilirubin (Negative) Urine Urobilinogen (<2.0) mg/dL Ur Leukocyte Esterase (Negative) Urine RBC (0-5) /hpf Urine WBC (0-5) /hpf Ur Squamous Epith Cells (0-4) /hpf Urine Bacteria (None) /hpf Urine Mucus (None) /hpf Blood Type O Positive Blood Type Recheck O Pos Bld Type Recheck Status No Antibody Screen NEGATIVE Spec Expiration Date 02/10/2022 - 234602/07/22 02/07/22 Range/Units 15:55 17:29 WBC (3.8-10.6) k/uL RBC (3.80-5.40) m/uL Hgb (11.4-16.0) gm/dL Hct (34.0-46.0) % MCV (80.0-100.0) fL MCH (25.0-35.0) pg MCHC (31.0-37.0) g/dL RDW (11.5-15.5) % Plt Count (150-450) k/uL MPV Neutrophils % % Lymphocytes % % Monocytes % % Eosinophils % % Basophils % % Neutrophils # (1.3-7.7) k/uL Lymphocytes # (1.0-4.8) k/uL Monocytes # (0-1.0) k/uL Eosinophils # (0-0.7) k/uL Basophils # (0-0.2) k/uL PT 10.4 (9.0-12.0) sec INR 1.0 (<1.2) APTT 24.8 (22.0-30.0) sec HCG, Quant mIU/mL Urine Color Yellow Urine Appearance Cloudy H (Clear) Urine pH 6.0 (5.0-8.0) Ur Specific [place] 1.027 (1.001-1.035) Urine Protein Trace H (Negative) Urine Glucose (UA) Negative (Negative) Urine Ketones Negative (Negative) Urine Blood Negative (Negative) Urine Nitrite Negative (Negative) Urine Bilirubin Negative (Negative) Urine Urobilinogen <2.0 (<2.0) mg/dL Ur Leukocyte Esterase Small H (Negative) Urine RBC 1 (0-5) /hpf Urine WBC 5 (0-5) /hpf Ur Squamous Epith Cells 18 H (0-4) /hpf Urine Bacteria Rare H (None) /hpf Urine Mucus Many H (None) /hpf Blood Type Blood Type Recheck Bld Type Recheck Status Antibody Screen Spec Expiration Date Disposition Clinical Impression: Miscarriage, threatened, early , Vaginal bleeding Disposition: HOME SELF-CARE Condition: Fair Instructions (If sedation given, give patient instructions): Threatened Miscarriage (ED) Additional Instructions: Follow up with OBGYN in 3 days to obtain repeat Beta-HCG testing to evaluate for . May require additional ultrasound imaging. If you cannot follow up soon, please return to the Emergency department in 3-4 days. Is patient prescribed a controlled substance at d/c from ED?: No Referrals: Edd Capellan MD [Primary Care Provider] - 1-2 days
[2022-02-07 18:59] VITALS: BP 166/100; PULSE 116
== END 2022-02-07 18:59 | disposition home or self-care (01) ==
LOC: EC 14:35
DX: R10.9 Unspecified abdominal pain (principal); Z88.5 Allergy status to narcotic agent; Z91.018 Allergy to other foods; O03.9 Complete or unspecified spontaneous abortion without complication; O20.0 Threatened abortion; Z3A.01 Less than 8 weeks gestation of pregnancy
CPT/HCPCS: 36415; 76801; 76817; 81001; 84702; 85025; 85610; 85730; 86850; 86900; 86901; 99284

== ENCOUNTER 2022-02-18 09:34 | Emergency (ER) | payer MEDICARE, OTHER ==
[2022-02-18 09:38] VITALS: BP 134/84; PULSE 85; RESP 16; TEMP 98.1
--- NOTE | 2022-02-18 10:24 | ED ---
Female Urogenital HPI - General Chief complaint: Vaginal Bleeding Stated complaint: 8wks preg, cramping/spotting Time Seen by Provider: 02/18/22 09:59 Source: patient, RN notes reviewed Mode of arrival: ambulatory Limitations: no limitations - History of Present Illness Initial comments: Patient is a 31-year-old female, presenting to emergency Department with complaints of abdominal cramping and very mild spotting that started today. Patient states she believes she is about 7-8 weeks . She is seen here about a week and half ago for similar complaint, they were unable to visualize an IUP on ultrasound. Patient is , history of triplets. She states she noticed a little bit of cramping yesterday and into today, it is very mild, she describes it as "period like cramps." She did take Tylenol prior to arrival. This morning after she wiped, she noticed a little bit of blood on the toilet paper. This made her come in for evaluation. Her [facility] is Dr. Gutierres, she has an appointment in about 2 weeks. Patient denies any fevers or chills, no dysuria. Admits to history of , no other abdominal surgeries. Patient is no further complaints. - Related Data Home Medications Medication Instructions Recorded Confirmed Pnv No.95/Ferrous Fum/Folic AC 1 tab PO DAILY 12/13/20 02/07/22 [ Multivitamin Tablet] metFORMIN HCL 500 mg PO BID 12/13/20 02/07/22 Acetaminophen Tab [Tylenol] 650 mg PO Q4H PRN 12/15/20 02/07/22 Previous Rx's Medication Instructions Recorded levETIRAcetam [Keppra] 1,000 mg PO BID #60 tab 08/05/17 Allergies Allergy/AdvReac Type Severity Reaction Status Date / Time morphine Allergy Intermediate Rash/Hives Verified 02/18/22 09:36 chocolate flavor Allergy Rash/Hives Verified 02/18/22 09:36 Review of Systems ROS Statement: Those systems with pertinent positive or pertinent negative responses have been documented in the HPI. ROS Other: All systems not noted in ROS Statement are negative. Past Medical History Past Medical History: Seizure Disorder, Skin Disorder Additional Past Medical History / Comment(s): cholelithiasis and psoriasis History of Any Multi-Drug Resistant Organisms: None Reported Past Surgical History: Cholecystectomy, Orthopedic Surgery Additional Past Surgical History / Comment(s): bilateral knee surgery 1999, 2000 Past Anesthesia/Blood Transfusion Reactions: No Reported Reaction Past Psychological History: Anxiety, Depression Smoking Status: Never smoker Past Alcohol Use History: None Reported Past Drug Use History: None Reported - Past Family History Mother Family Medical History: No Reported History Additional Family Medical History / Comment(s): Mother is healthy Father Family Medical History: No Reported History Additional Family Medical History / Comment(s): Father is healthy General Exam - General Exam Comments Initial Comments: GENERAL: Patient is well-developed and well-nourished. Patient is nontoxic and in no acute distress. HEAD: Atraumatic, normocephalic. EYES: Pupils equal round and reactive to light, extraocular movements intact, sclera anicteric, conjunctiva are normal. Eyelids were unremarkable. ENT: TMs normal, nares patent, oropharynx clear without exudates. Moist mucous membranes. NECK: Normal range of motion, supple without lymphadenopathy or JVD. LUNGS: Unlabored respirations. Breath sounds clear to auscultation bilaterally and equal. No wheezes rales or rhonchi. HEART: Regular rate and rhythm without murmurs, rubs or gallops. ABDOMEN: Soft, nontender, normoactive bowel sounds. No guarding, no rebound. No masses appreciated. : Deferred MUSCULOSKELETAL: Normal extremities with adequate strength and normal range of motion, no pitting or edema. No clubbing or cyanosis. NEUROLOGICAL: Patient is alert and oriented x 3. Motor and sensory are also intact. Normal speech, normal gait. PSYCH: Normal mood, normal affect. SKIN: Warm, Dry, normal turgor, no rashes or lesions noted. Limitations: no limitations Course Vital Signs 02/18/22 09:36 Temperature 98.1 F Pulse Rate 85 Respiratory 16 Rate Blood Pressure 134/84 O2 Sat by Pulse 97 Oximetry Medical Decision Making - Medical Decision Making Patient is a 31-year-old female here, currently 7-8 weeks , for mild abdominal cramping, very mild spotting that started today. She was seen on 02/07 for similar complaint. Ultrasound revealed no evidence for an IUP, beta hCG was only 147. Labs today show a stable hemoglobin, beta hCG is 713. Patient is only having very minimal cramping. I discussed these findings with her. She is to follow-up with Dr. Gutierres this week, call their office today for an appointment. She is agreeable to this. Return parameters were discussed, she verbalized understanding. She is stable for discharge. - Lab Data Result diagrams: 02/18/22 10:14 Lab Results 02/18/22 02/18/22 02/18/22 Range/Units 09:46 09:46 10:14 WBC 8.0 (3.8-10.6) k/uL RBC 4.72 (3.80-5.40) m/uL Hgb 13.4 (11.4-16.0) gm/dL Hct 41.8 (34.0-46.0) % MCV 88.5 (80.0-100.0) fL MCH 28.4 (25.0-35.0) pg MCHC 32.1 (31.0-37.0) g/dL RDW 13.0 (11.5-15.5) % Plt Count 275 (150-450) k/uL MPV 7.1 Neutrophils % 58 % Lymphocytes % 29 % Monocytes % 7 % Eosinophils % 3 % Basophils % 0 % Neutrophils # 4.6 (1.3-7.7) k/uL Lymphocytes # 2.3 (1.0-4.8) k/uL Monocytes # 0.6 (0-1.0) k/uL Eosinophils # 0.3 (0-0.7) k/uL Basophils # 0.0 (0-0.2) k/uL HCG, Quant mIU/mL Urine Color Yellow Urine Appearance Cloudy H (Clear) Urine pH 7.0 (5.0-8.0) Ur Specific [place] 1.021 (1.001-1.035) Urine Protein Trace H (Negative) Urine Glucose (UA) Negative (Negative) Urine Ketones Negative (Negative) Urine Blood Moderate H (Negative) Urine Nitrite Negative (Negative) Urine Bilirubin Negative (Negative) Urine Urobilinogen <2.0 (<2.0) mg/dL Ur Leukocyte Esterase Negative (Negative) Urine RBC 1 (0-5) /hpf Urine WBC 5 (0-5) /hpf Ur Squamous Epith Cells 13 H (0-4) /hpf Urine Mucus Occasional H (None) /hpf Urine HCG, Qual Detected (Not Detectd) 02/18/22 Range/Units 10:14 WBC (3.8-10.6) k/uL RBC (3.80-5.40) m/uL Hgb (11.4-16.0) gm/dL Hct (34.0-46.0) % MCV (80.0-100.0) fL MCH (25.0-35.0) pg MCHC (31.0-37.0) g/dL RDW (11.5-15.5) % Plt Count (150-450) k/uL MPV Neutrophils % % Lymphocytes % % Monocytes % % Eosinophils % % Basophils % % Neutrophils # (1.3-7.7) k/uL Lymphocytes # (1.0-4.8) k/uL Monocytes # (0-1.0) k/uL Eosinophils # (0-0.7) k/uL Basophils # (0-0.2) k/uL HCG, Quant 713.1 mIU/mL Urine Color Urine Appearance (Clear) Urine pH (5.0-8.0) Ur Specific [place] (1.001-1.035) Urine Protein (Negative) Urine Glucose (UA) (Negative) Urine Ketones (Negative) Urine Blood (Negative) Urine Nitrite (Negative) Urine Bilirubin (Negative) Urine Urobilinogen (<2.0) mg/dL Ur Leukocyte Esterase (Negative) Urine RBC (0-5) /hpf Urine WBC (0-5) /hpf Ur Squamous Epith Cells (0-4) /hpf Urine Mucus (None) /hpf Urine HCG, Qual (Not Detectd) Disposition Clinical Impression: Miscarriage, threatened, early Disposition: HOME SELF-CARE Condition: Stable Instructions (If sedation given, give patient instructions): Threatened Miscarriage (ED) Additional Instructions: Please return to the Emergency Department if symptoms worsen or any other concerns. Call Dr. Gutierres's office today for an appointment within the next few days. Is patient prescribed a controlled substance at d/c from ED?: No Referrals: Edd Capellan MD [Primary Care Provider] - 1-2 days Rosa Gutierres DO [Doctor of Osteopathic Medicine] - 1-2 days Time of Disposition: 11:33
[2022-02-18 10:59] LABS: Basophils % (A) 0 %; Eosinophils # (A) 0.3 k/uL (0-0.7); Eosinophils % (A) 3 %; HCT 41.8 % (34.0-46.0); HGB 13.4 gm/dL (11.4-16.0); Lymphocytes # (A) 2.3 k/uL (1.0-4.8); Lymphocytes % (A) 29 %; MCH 28.4 pg (25.0-35.0); MCHC 32.1 g/dL (31.0-37.0); MCV 88.5 fL (80.0-100.0); Mean Platelet Volume 7.1; Monocytes # (A) 0.6 k/uL (0-1.0); Monocytes % (A) 7 %; Neutrophils # (A) 4.6 k/uL (1.3-7.7); Neutrophils % (A) 58 %; Platelet Count 275 k/uL (150-450); RBC 4.72 m/uL (3.80-5.40)
[2022-02-18 11:03] LABS: Appearance,Urine Cloudy (Clear); Bilirubin,Urine Negative (Negative); Blood,Urine Moderate (Negative); Color,Urine Yellow; Glucose,Urine (UA) Negative (Negative); Ketones,Urine Negative (Negative); Leukocyte Esterase,Urine Negative (Negative); Mucus,Urine Occasional /hpf; Nitrite,Urine Negative (Negative); Protein,Urine Trace (Negative); RBC,Urine 1 /hpf (0-5); Specific Gravity,Urine 1.021 (1.001-1.035); Squamous Epithelial Cell,Urine 13 /hpf (0-4); Urobilinogen,Urine <2.0 mg/dL (<2.0); WBC,Urine 5 /hpf (0-5)
== END 2022-02-18 11:42 | disposition home or self-care (01) ==
LOC: EC 09:34
DX: O20.0 Threatened abortion (principal); Z88.5 Allergy status to narcotic agent; Z91.018 Allergy to other foods; Z3A.08 8 weeks gestation of pregnancy
CPT/HCPCS: 36415; 81001; 81025; 84702; 85025; 99284

== ENCOUNTER → 2023-06-16 | Outpatient (CLI) | payer MEDICARE, OTHER ==
[2023-06-16 13:26] VITALS: BP 143/90; PULSE 98; TEMP 98.4; BMI 63.3
--- NOTE | 2023-06-16 13:36 | P.HPBAR ---
Bariatric H&P - History & Physicial H&P Date: 06/16/23 History & Physicial: Visit/CC: new patient Patient initial contact: Initial weight: Initial weight in pounds: Height: 5 ft 4.5 in Initial BMI: Last weight: Current weight: 169.916 kg Current weight in pounds: 374.60 Current BMI: 63.3 [place] body weight (based on NIH guidelines): 55.565 kg Excess body weight loss: The patient is a 33 year-old F who presents for Bariatric Assessment. Patient resents today for new patient consultation. Patient is morbidly obese. Her BMI 63. Patient's had lifetime problems obesity. She is interested in sleeve gastrectomy. Patient's excellent understanding of sleeve gastric. When over the risks and benefits of procedure including gastric injury, bleeding and scarring from the gastric sleeve. Past Medical History Past Medical History: Seizure Disorder, Skin Disorder Additional Past Medical History / Comment(s): cholelithiasis and psoriasis. SOB with activity History of Any Multi-Drug Resistant Organisms: None Reported Past Surgical History: Section, Cholecystectomy, Orthopedic Surgery Additional Past Surgical History / Comment(s): bilateral knee surgery 1999, 2000 Past Anesthesia/Blood Transfusion Reactions: No Reported Reaction Past Psychological History: Anxiety, Depression Additional Psychological History / Comment(s): Pt states she lives her 4 yr old son and her roomate. She is independent. Smoking Status: Never smoker Past Alcohol Use History: None Reported Past Drug Use History: None Reported - Past Family History Mother Family Medical History: No Reported History Additional Family Medical History / Comment(s): Mother is healthy Father Family Medical History: No Reported History Additional Family Medical History / Comment(s): Father is healthy Surgical - Exam Vital Signs Temp Pulse BP 98.4 F 98 143/90 06/16/23 13:20 06/16/23 13:20 06/16/23 13:20 - General well developed, well nourished, no distress - Eyes PERRL - ENT normal pinna - Neck no masses - Respiratory normal expansion - Cardiovascular Rhythm: regular - Abdomen Abdomen: soft, non tender Bariatric Assessment & Plan Plan: Morbid obesity, BMI 63. Patient be scheduled for EGD. Bariatric Checklist Checklist: Plan: Checklist: EGD: 1. Hiatal hernia: 2. H. Pylori: HgbA1c: Vitamin D: Smoking: Never smoker Primary care physician referral: Dr. Enciso Psychiatry clearance: Cardiology clearance: Sleep study: Diet journal: VTE risk score: VTE risk level: Rehab needs at discharge:
[2023-06-16 20:07] LABS: HCT 44.4 % (37.2-46.3); HGB 14.8 d/dL (12.0-15.0); MCH 29.5 pg (27.0-32.0); MCHC 33.3 d/dL (32.0-37.0); MCV 88.4 FL (80.0-97.0); Mean Platelet Volume 9.1 FL (9.5-12.2); NRBC Per 100 WBC 0 X 10*3/uL (0.00-0.01); Platelet Count 263 X 10*3/uL (140-440); RBC 5.02 X 10*6/uL (4.10-5.20); WBC 9.15 X 10*3/uL (4.50-10.00)
[2023-06-16 21:03] LABS: ALT 27 U/L (8-44); AST 19 U/L (13-35); Albumin 4.6 d/dL (3.8-4.9); Alkaline Phosphatase 79 U/L (41-126); BUN/Creat Ratio 12.14 Ratio (12.00-20.00); Blood Urea Nitrogen 8.5 mg/dL (9.0-27.0); Calcium 9.8 mg/dL (8.7-10.3); Carbon Dioxide 23.5 mmol/L (21.6-31.8); Chloride 103 mmol/L (96-109); Globulin 2.7 d/dL (1.6-3.3); Glucose 93 mg/dL (70-110); Potassium 4.8 mmol/L (3.5-5.5); Sodium 141 mmol/L (135-145); Total Bilirubin 0.3 mg/dL (0.3-1.2); Total Protein 7.3 d/dL (6.2-8.2)
== END ==
LOC: BARWHC3 12:53
PROVIDERS: ATTEND Surgery
DX: E66.01 Morbid (severe) obesity due to excess calories (principal); I49.9 Cardiac arrhythmia, unspecified; F41.9 Anxiety disorder, unspecified; F32.A Depression, unspecified; G40.909 Epilepsy, unspecified, not intractable, without status epilepticus; Z68.44 Body mass index [BMI] 60.0-69.9, adult; Z88.5 Allergy status to narcotic agent; Z91.018 Allergy to other foods
CPT/HCPCS: 84425; 80053; 82607; 82746; 85027; 82306; 83036; 93005; G0463; 99212

== ENCOUNTER 2023-07-07 11:50 | Day surgery (SDC) | payer MEDICARE, OTHER ==
[~2023-07-07 11:50] MED LIST: LACTATED RINGERS 1,000 ML IV SCH
[2023-07-07 12:13] VITALS: TEMP 97.9
[2023-07-07] MEDS ORDERED: MIDAZOLAM 2 MG/2 ML VIAL ONE (14:09)
[2023-07-07] MEDS ORDERED: fentaNYL (PF) 50 MCG/ML 2 ML AMP ONE (14:09)
[2023-07-07] MEDS ORDERED: PROPOFOL 10 MG/ML 20 ML VIAL IV ONE (14:09)
[2023-07-07] MEDS ORDERED: LIDOCAINE 2% INJ 20 MG/ML (2 ML VIAL) ONE (14:09)
--- NOTE | 2023-07-07 14:14 | P.GSHP ---
History of Present Illness H&P Date: 07/07/23 Chief Complaint: GERD, morbid obesity This is a 31-year-old female for EGD. Patient is morbidly obese. BMI 63. Patient underwent workup for sleeve gastric. Patient has history of GERD. Past Medical History Past Medical History: Seizure Disorder, Skin Disorder Additional Past Medical History / Comment(s): cholelithiasis and psoriasis last seizure 07/2017,. SOB with activity History of Any Multi-Drug Resistant Organisms: None Reported Past Surgical History: Section, Cholecystectomy, Orthopedic Surgery Additional Past Surgical History / Comment(s): bilateral knee surgery 1999, 2000 Past Anesthesia/Blood Transfusion Reactions: No Reported Reaction Smoking Status: Never smoker - Past Family History Mother Family Medical History: No Reported History Additional Family Medical History / Comment(s): Mother is healthy Father Family Medical History: No Reported History Additional Family Medical History / Comment(s): Father is healthy Medications and Allergies Home Medications Medication Instructions Recorded Confirmed Type levETIRAcetam [Keppra] 1,000 mg PO BID #60 tab 08/05/17 07/07/23 Rx Acetaminophen Tab [Tylenol] 650 mg PO Q4H PRN 12/15/20 07/07/23 History Vit D (Unk) 1 tab PO DAILY 07/02/23 07/02/23 History Allergies Allergy/AdvReac Type Severity Reaction Status Date / Time morphine Allergy Intermediate Rash/Hives Verified 07/07/23 12:12 chocolate flavor Allergy Rash/Hives Verified 07/07/23 12:12 Surgical - Exam Vital Signs Temp Pulse Resp BP Pulse Ox 97.9 F 82 18 146/83 98 07/07/23 12:11 07/07/23 12:11 07/07/23 12:11 07/07/23 12:11 07/07/23 12:11 - General well developed, well nourished, no distress - Eyes PERRL - ENT normal pinna - Neck no masses - Respiratory normal expansion - Cardiovascular Rhythm: regular - Abdomen Abdomen: soft, non tender Assessment and Plan Assessment: GERD. We'll perform EGD.
--- NOTE | 2023-07-07 14:21 | P.OP ---
Date of Procedure: 07/07/23 Preoperative Diagnosis: GERD Postoperative Diagnosis: Mild duodenitis Procedure(s) Performed: EGD Anesthesia: MAC Surgeon: Akhil Luther Pathology: other (Duodenum) Condition: stable Disposition: PACU Description of Procedure: Patient's placed on the endoscopy table in the lateral position. She received IV sedation. The gastro-/oropharynx passed in the esophagus and stomach. Scope placement pylorus. The first and second portion of duodenum was examined. There is some mild inflammation. This was biopsied. The liver back the antrum this appeared normal. Scope retroflexed remainder the stomach appeared normal. The GE junction was at 40 cm. The distal esophagus appeared normal. The proximal esophagus. Scope withdrawn for patient.
[2023-07-07 14:34] VITALS: RESP 16
[2023-07-07 14:41] VITALS: BP 129/89; PULSE 87
== END 2023-07-07 15:07 | disposition home or self-care (01) ==
LOC: ORWHC2ENDO 11:50
PROVIDERS: ATTEND Surgery
DX: K29.80 Duodenitis without bleeding (principal); K21.9 Gastro-esophageal reflux disease without esophagitis; E66.01 Morbid (severe) obesity due to excess calories; G40.909 Epilepsy, unspecified, not intractable, without status epilepticus; Z88.5 Allergy status to narcotic agent; Z68.44 Body mass index [BMI] 60.0-69.9, adult; Z90.49 Acquired absence of other specified parts of digestive tract; Z98.890 Other specified postprocedural states; Z79.899 Other long term (current) drug therapy
CPT/HCPCS: 81025; 88305; 43239; J2250; J3010; J2704; J2001

== ENCOUNTER → 2023-07-28 | Outpatient (CLI) | payer MEDICARE, OTHER ==
[2023-07-28 09:28] VITALS: BMI 61.6
[2023-07-28 13:12] VITALS: BP 158/87; PULSE 97; TEMP 98.1
== END ==
LOC: BARWHC3 08:31
PROVIDERS: ATTEND Surgery
DX: E66.01 Morbid (severe) obesity due to excess calories (principal); Z68.44 Body mass index [BMI] 60.0-69.9, adult; Z71.3 Dietary counseling and surveillance; Z88.5 Allergy status to narcotic agent; Z91.018 Allergy to other foods
CPT/HCPCS: 97804; G0463; 99211

== ENCOUNTER → 2023-09-15 | Outpatient (CLI) | payer MEDICARE, OTHER ==
[2023-09-15 15:32] LABS: Basophils # (A) 0.04 X 10*3/uL (0.00-0.10); Basophils % (A) 0.5 %; Eosinophils % (A) 2.3 %; HCT 45.5 % (37.2-46.3); HGB 15.1 d/dL (12.0-15.0); Lymphocytes # (A) 2.77 X 10*3/uL (0.90-5.00); Lymphocytes % (A) 31.5 %; MCHC 33.2 d/dL (32.0-37.0); MCV 87.3 FL (80.0-97.0); Mean Platelet Volume 9.7 FL (9.5-12.2); Monocytes # (A) 0.75 X 10*3/uL (0.20-1.00); Monocytes % (A) 8.5 %; NRBC Per 100 WBC 0 X 10*3/uL (0.00-0.01); Neutrophils % (A) 56.9 %; Platelet Count 258 X 10*3/uL (140-440); RBC 5.21 X 10*6/uL (4.10-5.20); RDW 12.7 % (11.5-14.5); WBC 8.79 X 10*3/uL (4.50-10.00)
[2023-09-15 22:29] LABS: ALT 27 U/L (8-44); AST 16 U/L (13-35); Albumin 4.5 d/dL (3.8-4.9); Albumin/Globulin Ratio 1.67 Ratio (1.60-3.17); Alkaline Phosphatase 71 U/L (41-126); BUN/Creat Ratio 10.38 Ratio (12.00-20.00); Blood Urea Nitrogen 8.3 mg/dL (9.0-27.0); Calcium 9.4 mg/dL (8.7-10.3); Carbon Dioxide 23.4 mmol/L (21.6-31.8); Chloride 105 mmol/L (96-109); Globulin 2.7 d/dL (1.6-3.3); Glucose 82 mg/dL (70-110); Potassium 4.1 mmol/L (3.5-5.5); Sodium 140 mmol/L (135-145); Total Bilirubin 0.4 mg/dL (0.3-1.2); Total Protein 7.2 d/dL (6.2-8.2)
== END | disposition home or self-care (01) ==
LOC: LABPAT 09:04
PROVIDERS: ATTEND Surgery
DX: Z01.812 Encounter for preprocedural laboratory examination (principal)
CPT/HCPCS: 80053; 85025

== ENCOUNTER 2023-09-23 08:43 | Inpatient (IN) | payer MEDICARE, OTHER ==
[~2023-09-23 08:43] MED LIST changes: +DEXAMETHASONE SOD PHOSPHATE 4 MG/ML 1 ML VIAL IV ONE; +ENOXAPARIN 40 MG/0.4 ML SYRINGE SQ PRN; +HYDROmorphone 0.5 MG/0.5 ML SYRINGE IVP PRN; -LACTATED RINGERS 1,000 ML IV SCH; +LIDOCAINE 1% (10MG/ML) FOR IV START INTRADERMA PRN; +MIDAZOLAM 2 MG/2 ML VIAL IV PRN; +ONDANSETRON 4 MG/2 ML VIAL IVP ONE; +ceFAZolin 3 GM in SODIUM CHLORIDE 0.9% 100 ML IVPB PRN
[2023-09-23] MEDS: LACTATED RINGERS 1,000 ML IV SCH (10:01)
--- NOTE | 2023-09-23 10:06 | P.GSHP ---
History of Present Illness H&P Date: 09/23/23 Chief Complaint: Morbid obesity This a 31-year-old female presents today for laparoscopic sleeve gastrectomy. Patient has morbidly obese. BMI is 59. Patient aware the risk surgery including conversion to the open procedure and injury to the stomach liver spleen is also aware the risk of gastric staple line disruption, bleeding and scarring. Past Medical History Past Medical History: Hypertension, Osteoarthritis (OA), Seizure Disorder, Skin Disorder Additional Past Medical History / Comment(s): psoriasis. last seizure 07/2017,. SOB with activity. Osteoarthritis of lower back. NO MEDS NEEDED FOR B/P History of Any Multi-Drug Resistant Organisms: None Reported Past Surgical History: Section, Cholecystectomy, Orthopedic Surgery Additional Past Surgical History / Comment(s): bilateral knee surgery 1999, 2000. EGD Past Anesthesia/Blood Transfusion Reactions: No Reported Reaction Smoking Status: Never smoker - Past Family History Mother Family Medical History: No Reported History Additional Family Medical History / Comment(s): Mother is healthy Father Family Medical History: No Reported History Additional Family Medical History / Comment(s): Father is healthy Medications and Allergies Home Medications Medication Instructions Recorded Confirmed Type levETIRAcetam [Keppra] 1,000 mg PO BID #60 tab 08/05/17 09/23/23 Rx Acetaminophen Tab [Tylenol] 650 mg PO Q4H PRN 12/15/20 09/23/23 History Vit D (Unk) 1 tab PO DAILY 07/02/23 09/23/23 History Allergies Allergy/AdvReac Type Severity Reaction Status Date / Time morphine Allergy Intermediate Rash/Hives Verified 09/23/23 09:40 chocolate flavor Allergy Rash/Hives Verified 09/23/23 09:40 COVID-19 (SARS-CoV-2) Allergy Rash/Hives Verified 09/23/23 09:40 vaccine, viry Surgical - Exam Vital Signs Temp Pulse Resp BP Pulse Ox 99.3 F 90 16 121/66 99 09/23/23 09:48 09/23/23 09:48 09/23/23 09:48 09/23/23 09:48 09/23/23 09:48 - General well developed, well nourished, no distress - Eyes PERRL - ENT normal pinna - Neck no masses - Respiratory normal expansion - Cardiovascular Rhythm: regular - Abdomen Abdomen: soft, non tender - Integumentary no rash - Neurologic normal coordination Assessment and Plan Assessment: Morbid obesity. We'll perform laparoscopic sleeve gastrectomy.
[2023-09-23] MEDS ORDERED: LIDOCAINE 2%-EPI 1:100,000 20 ML VIAL SQ ONE (11:06)
[2023-09-23] MEDS ORDERED: HYDROmorphone 1 MG/ML 1 ML SYRINGE IVP PRN (11:50)
[2023-09-23] MEDS ORDERED: HYOSCYAMINE ORAL DROPS 1.875 MG/15 ML BOTTLE PO PRN (11:50)
[2023-09-23] MEDS ORDERED: diphenhydrAMINE 50 MG/ML 1 ML VIAL IVP PRN (11:50)
[2023-09-23] MEDS ORDERED: NALOXONE 0.4 MG/ML 1 ML VIAL IV PRN (11:50)
[2023-09-23] MEDS ORDERED: ACETAMINOPHEN IV (For NPO) 1,000 MG in EMPTY BAG 1 BAG IVPB ONE (11:50)
[2023-09-23] MEDS ORDERED: SIMETHICONE 80 MG CHEWABLE PO PRN (11:50)
[2023-09-23] MEDS ORDERED: HYDROmorphone 0.5 MG/0.5 ML SYRINGE IVP PRN (11:50)
--- NOTE | 2023-09-23 11:50 | P.OP ---
Date of Procedure: 09/23/23 Preoperative Diagnosis: Morbid obesity, BMI 59 Postoperative Diagnosis: Morbid obesity, BMI 59 Procedure(s) Performed: Laparoscopic sleeve gastrectomy Anesthesia: BRADY Surgeon: Akhil Luther Estimated Blood Loss (ml): 10 Pathology: other (Stomach) Condition: stable Disposition: PACU Description of Procedure: The patient was placed on the operating room table in the supine position. She received general anesthesia and then was placed in dorsal lithotomy position. Her abdomen was prepped and draped in sterile fashion. The skin incision sites were anesthetized 1% local Xylocaine. And then the skin was incised with an 11 blade in the left lateral position. Using a blade less trocar under direct visualization the peritoneal cavity was entered. The abdomen was insufflated and then a 5 mm laparoscope was placed into the peritoneal cavity. A 5 mm trocar was placed in the right epigastric, and right lateral position. A 15 mm trocar was placed in the supra-umbilical position and another 5 mm trocar was placed in the left lateral position. The left lateral lobe of the liver was retracted. The stomach was visualized. The greater curvature of the stomach was then dissected using the Harmonic scissors. The dissection occurred approximately 5 cm from the pylorus to the level of the left kevin. There was no hiatal hernia seen. At this point a 40-Thai bougie dilator was placed the oropharynx and passed into the esophagus and into the stomach by the DEBURRER STRIP. The sleeve gastrectomy was performed by using the powered echelon stapler with a seam guard buttress material. Sequential firings of the stapler were performed. The gastric remnant was then brought out through the 15 mm trocar site. The dilator was withdrawn. And a orogastric tube was replaced into the stomach. The stomach was insufflated with 200 mL of methylene blue normal saline. There was no evidence of extravasation. The abdomen was irrigated there is no bleeding seen. The Wilner-Madelaine device was used to close the 15 mm trocar with 0 Vicryl. Skin was closed with interrupted 3-0 Monocryl sutures once the trochars withdrawn. Dermabond dressing was applied. Patient was sent to recovery in stable condition.
[2023-09-23] MEDS ORDERED: 0.9% NACL WITH KCL 20 MEQ/L 1,000 ML IV SCH (12:00)
[2023-09-23] MEDS ORDERED: droPERidol 5 MG/2 ML VIAL IVP ONE (12:40)
[2023-09-23] MEDS ORDERED: LACTATED RINGERS 1,000 ML IV ONE ×2 (12:47)
[2023-09-23] MEDS: KETOROLAC 15 MG/ML 1 ML VIAL IVP SCH ×3 (13:45→23:10)
[2023-09-23] MEDS: ALBUTEROL NEBULIZED 2.5 MG/3 ML INHALATION SCH ×3 (16:15→20:23)
[2023-09-23] MEDS: levETIRAcetam IV 500 MG/5 ML VIAL IVP SCH ×2 (16:15→21:40)
[2023-09-23] MEDS: ONDANSETRON 4 MG/2 ML VIAL IVP PRN (16:40)
[2023-09-23] MEDS: ENOXAPARIN 40 MG/0.4 ML SYRINGE SQ SCH (23:10)
--- NOTE | 2023-09-24 01:45 | HP ---
HISTORY AND PHYSICAL REASON FOR CONSULTATION: Advice regarding blood pressure, hypertension, other medications requested by surgery. HISTORY OF PRESENT ILLNESS: This is a 33-year-old woman with past medical history of multiple medical problems, who was admitted after a laparoscopic sleeve gastrectomy. The patient had some elevation. The blood pressure currently is 153/90, and there is no history of any fever, rigors or chills at this time. PAST MEDICAL HISTORY: Reviewed include hypertension, DJD, seizure disorder. The rest of history and rest of chart are also reviewed. HOME MEDICATIONS: Keppra. Dose and rest of medications reviewed. ALLERGIES: Morphine. Rest of allergies noted. FAMILY HISTORY: No history of heart disease or strokes in the family. SOCIAL HISTORY: No history of smoking or alcohol. REVIEW OF SYSTEMS: A 14-point review is negative except as mentioned earlier. PHYSICAL EXAMINATION: VITAL SIGNS: Pulse is 72, blood pressure 150/90, respirations 16. CHEST: Clear to auscultation. CARDIOVASCULAR: S1, S2. ABDOMEN: Soft. Status post surgery. NERVOUS SYSTEM: No focal deficits. SKIN: No ulcer, rash, or swelling. LABORATORY DATA: Preop labs are noted. ASSESSMENT: 1. Status post sleeve gastrectomy. 2. Hypertension. 3. History of seizure disorder. 4. History of psoriasis. 5. History of seizure disorder. 6. History of degenerative joint disease. RECOMMENDATIONS: This is a 33-year-old woman who presented with multiple medical issues. At this time, I recommend to continue current medications, symptomatic treatment. Continue with IV seizure medications for now till the patient is p.o. Otherwise, we will follow the patient closely with you. DVT prophylaxis. Incentive spirometry. MMODL / IJN: [id number] /
[2023-09-24] MEDS: LACTATED RINGERS 1,000 ML IV SCH (05:52)
[2023-09-24] MEDS: KETOROLAC 15 MG/ML 1 ML VIAL IVP SCH ×4 (05:53→23:02)
[2023-09-24 05:55] LABS: African American GFR (CKD) >90 (>60 ml/min/1.73 sqM); Anion Gap 14 mmol/L; Blood Urea Nitrogen 3 mg/dL (7-17); Calcium 8.8 mg/dL (8.4-10.2); Carbon Dioxide 16 mmol/L (22-30); Chloride 107 mmol/L (98-107); Non-African American GFR(CKD) >90 (>60 ml/min/1.73 sqM); Sodium 137 mmol/L (137-145)
[2023-09-24 05:56] LABS: Magnesium 1.7 mg/dL (1.6-2.3); Phosphorus 3.2 mg/dL (2.5-4.5); Potassium 5.1 mmol/L (3.5-5.1)
[2023-09-24] MEDS: ONDANSETRON 4 MG/2 ML VIAL IVP PRN ×3 (06:53→23:01)
[2023-09-24] MEDS: ALBUTEROL NEBULIZED 2.5 MG/3 ML INHALATION SCH ×4 (08:23→19:40)
[2023-09-24] MEDS: levETIRAcetam IV 500 MG/5 ML VIAL IVP SCH (08:35)
[2023-09-24] MEDS: 0.9% NACL WITH KCL 20 MEQ/L 1,000 ML IV SCH ×2 (08:35→18:22)
[2023-09-24] MEDS: PANTOPRAZOLE 40 MG/10 ML VIAL IV SCH (08:35)
[2023-09-24] MEDS: ENOXAPARIN 40 MG/0.4 ML SYRINGE SQ SCH ×2 (10:29→22:07)
[2023-09-24 10:37] VITALS: BMI 58.6
[2023-09-24 13:44] LABS: Basophils # (A) 0.01 X 10*3/uL (0.00-0.10); Basophils % (A) 0.1 %; Eosinophils # (A) 0.01 X 10*3/uL (0.04-0.35); Eosinophils % (A) 0.1 %; HCT 41.4 % (37.2-46.3); HGB 13.5 g/dL (12.0-15.0); Lymphocytes # (A) 1.19 X 10*3/uL (0.90-5.00); Lymphocytes % (A) 9.7 %; MCH 28.8 pg (27.0-32.0); MCHC 32.6 g/dL (32.0-37.0); MCV 88.5 FL (80.0-97.0); Mean Platelet Volume 10.3 FL (9.5-12.2); Monocytes # (A) 1.46 X 10*3/uL (0.20-1.00); Monocytes % (A) 11.9 %; NRBC Per 100 WBC 0 X 10*3/uL (0.00-0.01); Neutrophils # (A) 9.52 X 10*3/uL (1.80-7.70); Neutrophils % (A) 77.9 %; Platelet Count 258 X 10*3/uL (140-440); RBC 4.68 X 10*6/uL (4.10-5.20); RDW 12.8 % (11.5-14.5); WBC 12.23 X 10*3/uL (4.50-10.00)
--- NOTE | 2023-09-24 14:43 | P.PN ---
Subjective Progress Note Date: 09/24/23 CHIEF COMPLAINT: Morbid obesity HISTORY OF PRESENT ILLNESS: Postop day #1 status post laparoscopic sleeve gastrectomy. Patient complaining of nausea and regurgitation of liquids. Her pain is controlled. She's had no flatus. Denies any difficulty urinating. She has been ambulating. Afebrile. WBC 12.23 Hgb 13.5 platelets 258 sodium is 137 potassium is 5.1 creatinine 0.52 PHYSICAL EXAM: VITAL SIGNS: Reviewed. GENERAL: Well-developed in no acute distress. ABDOMEN: Soft. Nondistended. abdominal binder in place NEUROLOGIC: Alert and oriented. Cranial nerves II through XII grossly intact. ASSESSMENT: 1. Morbid obesity status post laparoscopic sleeve gastrectomy PLAN: -Continue bariatric clear liquid diet. Encouraged patient to take slower and smaller sips -Encourage patient to ambulate -Continue pain management -Continue IV fluids -Continue antiemetics -Anticipate discharge tomorrow -DVT prophylaxis Lovenox and GI prophylaxis Protonix Physician Telephone Appointment Clerk note has been reviewed by physician. Signing provider agrees with the documented findings, assessment, and plan of care. Objective - Vital Signs Vital signs: Vital Signs Temp 97.6 F 09/24/23 14:15 Pulse 81 09/24/23 14:15 Resp 17 09/24/23 14:15 BP 128/82 09/24/23 14:15 Pulse Ox 99 09/24/23 14:15 FiO2 21 09/23/23 16:20 Intake & Output 09/23/23 09/24/23 09/24/23 18:59 06:59 18:59 Intake Total 1100 1650 Output Total 210 Balance 890 1650 Weight 155.1 kg 155.1 kg Intake: IV 1100 Intake, IV Titration 1650 Amount 0.9% NaCl with KCl 20 Meq 1600 /l 1,000 ml @ 100 mls/hr IV .Q10H [facility] Rx#: [id number] ceFAZolin 2 gm In Sodium 50 Chloride 0.9% 50 ml @ 100 mls/hr IVPB Q8H [facility] Rx#: [id number] Output: Emesis 200 Estimated Blood Loss 10 Other: Voiding Method Toilet # Voids 1 - Labs CBC & Chem 7: 09/24/23 06:30 09/24/23 05:06 Labs: Abnormal Lab Results - Last 24 Hours (Table) 11/15/23 11/15/23 Range/Units 05:06 06:30 WBC 12.23 H (4.50-10.00) X 10*3/uL Neutrophils # 9.52 H (1.80-7.70) X 10*3/uL Monocytes # 1.46 H (0.20-1.00) X 10*3/uL Eosinophils # 0.01 L (0.04-0.35) X 10*3/uL Carbon Dioxide 16 L (22-30) mmol/L BUN 3 L (7-17) mg/dL
[2023-09-24] MEDS: levETIRAcetam ORAL SOLN 500 MG/5 ML CUP PO SCH (22:06)
--- NOTE | 2023-09-25 01:55 | PN ---
PROGRESS NOTE DATE OF SERVICE: 09/24/2023 SUBJECTIVE: This is a 33-year-old woman who was admitted after sleeve gastrectomy is being closely monitored. No chest pain. No palpitations. The patient is on IV Keppra, Keppra solution is being recommended after discharge. PHYSICAL EXAMINATION: VITAL SIGNS: Pulse 65, blood pressure 120/82, respirations 18. CHEST: Clear to auscultation. ABDOMEN: Soft, status post surgery. LABORATORY DATA: Reviewed. ASSESSMENT: 1. Status post sleeve gastrectomy. 2. Hypertension. 3. History of seizure disorder. 4. History of psoriasis. 5. History of degenerative joint disease. RECOMMENDATIONS: Recommend to continue current management and continue symptomatic treatment. Transition Keppra to oral solution and continue rest of medications. Further recommendations to follow. Incentive spirometry. DVT prophylaxis. MMODL / IJN: [id number] /
[2023-09-25] MEDS: KETOROLAC 15 MG/ML 1 ML VIAL IVP SCH (05:46)
[2023-09-25] MEDS: 0.9% NACL WITH KCL 20 MEQ/L 1,000 ML IV SCH ×2 (05:48→08:15)
[2023-09-25] MEDS: ALBUTEROL NEBULIZED 2.5 MG/3 ML INHALATION SCH ×2 (07:50→11:42)
[2023-09-25] MEDS: levETIRAcetam ORAL SOLN 500 MG/5 ML CUP PO SCH (08:15)
[2023-09-25] MEDS: PANTOPRAZOLE 40 MG/10 ML VIAL IV SCH (08:15)
[2023-09-25] MEDS: ENOXAPARIN 40 MG/0.4 ML SYRINGE SQ SCH (08:15)
[2023-09-25 08:20] LABS: Basophils # (A) 0.03 X 10*3/uL (0.00-0.10); Basophils % (A) 0.3 %; Eosinophils # (A) 0.04 X 10*3/uL (0.04-0.35); Eosinophils % (A) 0.4 %; HGB 12.6 g/dL (12.0-15.0); Lymphocytes # (A) 1.83 X 10*3/uL (0.90-5.00); Lymphocytes % (A) 20.2 %; MCH 28.8 pg (27.0-32.0); MCHC 33.2 g/dL (32.0-37.0); MCV 86.8 FL (80.0-97.0); Mean Platelet Volume 9.8 FL (9.5-12.2); Monocytes # (A) 0.99 X 10*3/uL (0.20-1.00); Monocytes % (A) 10.9 %; NRBC Per 100 WBC 0 X 10*3/uL (0.00-0.01); Neutrophils # (A) 6.15 X 10*3/uL (1.80-7.70); Neutrophils % (A) 67.9 %; Platelet Count 226 X 10*3/uL (140-440); RBC 4.38 X 10*6/uL (4.10-5.20); RDW 12.9 % (11.5-14.5); WBC 9.07 X 10*3/uL (4.50-10.00)
[2023-09-25 08:43] VITALS: BP 103/70; PULSE 82; RESP 20; TEMP 97.3
--- NOTE | 2023-09-25 10:38 | P.DS ---
Providers Date of admission: 09/23/23 08:43 Expected date of discharge: 09/25/23 Attending physician: Akhil Luther Consults: 09/23/23 11:50 Consult Physician Routine Consulting Provider: Sean Montague Consult Reason/Comments: Medical management Do you want consulting provider notified?: Yes Primary care physician: Stated None Hospital Course: Discharge diagnosis 1. Morbid obesity status post laparoscopic sleeve gastrectomy Hospital course This is a 33-year-old female with history of morbid obesity. She is status post laparoscopic sleeve gastrectomy. Her pain is controlled. She is tolerating diet. She has been up and ambulating. She is having flatus. Denies any difficulty urinating. She is afebrile. She is stable for discharge. Please refer to chart for any further details. Physician Catalogue Clerk note has been reviewed by physician. Signing provider agrees with the documented findings, assessment, and plan of care. Patient Condition at Discharge: Stable Plan - Discharge Summary Discharge Rx Participant: Yes New Discharge Prescriptions: New Acetaminophen Tab [Tylenol] 1,000 mg PO Q6HR PRN #30 tablet PRN Reason: Pain bisacodyL [Dulcolax] 5 mg PO DAILY PRN #10 tab PRN Reason: Constipation Simethicone 40 mg/0.6 ml Drops [Mylicon Drops] 40 mg PO PCHS PRN #30 ml PRN Reason: Gas Omeprazole [PriLOSEC] 40 mg PO DAILY #30 cap Ondansetron Odt [Zofran Odt] 4 mg PO Q8HR PRN #9 tab PRN Reason: Nausea Continue levETIRAcetam [Keppra] 1,000 mg PO BID #60 tab Vit D (Unk) 1 tab PO DAILY Discontinued Acetaminophen Tab [Tylenol] 650 mg PO Q4H PRN PRN Reason: Pain Or Fever > 100.5 Discharge Medication List levETIRAcetam [Keppra] 1,000 mg PO BID #60 tab 08/05/17 [Rx] Vit D (Unk) 1 tab PO DAILY 07/02/23 [History] Acetaminophen Tab [Tylenol] 1,000 mg PO Q6HR PRN #30 tablet 09/25/23 [Rx] Omeprazole [PriLOSEC] 40 mg PO DAILY #30 cap 09/25/23 [Rx] Ondansetron Odt [Zofran Odt] 4 mg PO Q8HR PRN #9 tab 09/25/23 [Rx] Simethicone 40 mg/0.6 ml Drops [Mylicon Drops] 40 mg PO PCHS PRN #30 ml 09/25/23 [Rx] bisacodyL [Dulcolax] 5 mg PO DAILY PRN #10 tab 09/25/23 [Rx] [facility]ment[facility] [facility] [place] [place] [facility] [place] [facility] Patient Instructions/Handouts: Nutrition after Bariatric Surgery (DC), Laparoscopic Sleeve Gastrectomy (DC) Activity/Diet/Wound Care/Special Instructions: No lifting over 10 pounds Shower daily. No soaking or tub baths for 2 weeks Very light activity until you are reevaluated at your follow up appointment with your surgeon No straws or carbonated beverages Discharge Disposition: HOME SELF-CARE
--- NOTE | 2023-09-26 05:46 | P.PN ---
Subjective Progress Note Date: 09/25/23 This is a pleasant 33-year-old female who was admitted under surgical services underwent sleeve gastrectomy and working on being discharged. She does take Keppra outpatient and we'll transition to elixir and discussed with patient about following up outpatient and discussing further with general surgery when okay to resume oral tablets or if will be continuing elixir. Patient is currently afebrile with no reported chest pain or shortness of breath. Patient has been up and walking. Patient is tolerating. Clear liquid diet. Review of systems: Constitutional: No reports of fatigue, fever, or chills Cardiovascular: No reports of chest pain or palpitations Respiratory: No reports of shortness of breath or cough GI: No reports of nausea, no reports of vomiting, no bowel movement as of yet : No reports of dysuria or retention Neurovascular: No reports of generalized weakness All medications have been reviewed PHYSICAL EXAMINATION: GENERAL: The patient is alert and oriented x4, Well developed, well nourished. Morbidly obese HEENT: Pupils are round and equally reacting to light. EOMI. no scleral icterus. No conjunctival pallor. Normocephalic, atraumatic. No pharyngeal erythema. No thyromegaly. CARDIOVASCULAR: S1 and S2 muffled PULMONARY: diminished breath sounds bilaterally with no wheezing or rhonchi noted. ABDOMEN: soft. Mildly tender on exam. obese. non-distended, positive bowel sounds noted. No palpable organomegaly. MUSCULOSKELETAL: No joint swelling or deformity. EXTREMITIES: No cyanosis, clubbing, or pedal edema. NEUROLOGICAL: Gross neurological examination did not reveal any focal deficits. SKIN: No rashes. Assessment: Status post sleeve gastrectomy Hypertension history History of seizure disorder History of psoriasis History of degenerative joint disease Morbid obesity with a BMI of 58.7 GI prophylaxis DVT prophylaxis Full code Plan: Recommend to continue with current medications and management per general surgery services. All medications have been reviewed and resumed as appropriate. Keppra elixir has been ordered and sent to pharmacy. Discussed with the patient as well as family at bedside about following up with scheduled general surgery appointment and discussing when okay to resume oral tablets or if the patient will need to continue on oral solution. Patient follows with neurology outpatient as well Encouraged incentive spirometer at least 10 times every hour while awake Encouraged continued increased activity as tolerated with frequent walking around halls Patient is being scheduled for discharge. Patient is medically stable for discharge today once cleared by surgery We will continue to follow with general surgery during hospitalization. Thank you kindly for this consultation. The impression and plan of care has been dictated by Aggie Maldonado, nurse practitioner as directed. Dr. Eddi MD I have performed a history and examination and MDM of this patient, discussed the same with the dictator, and agree with the dictator's assessment and plan as written ,documented as a scribe. Based on total visit time, I have performed more than 50% of the visit. Any additional findings or plans will be noted. Objective - Vital Signs Vital signs: Vital Signs Temp 97.3 F L 09/25/23 07:22 Pulse 82 09/25/23 07:22 Resp 20 09/25/23 07:22 BP 103/70 09/25/23 07:22 Pulse Ox 98 09/25/23 07:22 FiO2 21 09/23/23 16:20 Intake & Output 09/24/23 09/25/23 09/25/23 18:59 06:59 18:59 Intake Total 1650 800 Balance 1650 800 Weight 155.1 kg Intake: Intake, IV Titration 1650 800 Amount 0.9% NaCl with KCl 20 Meq 1600 800 /l 1,000 ml @ 100 mls/hr IV .Q10H [facility] Rx#: [id number] ceFAZolin 2 gm In Sodium 50 Chloride 0.9% 50 ml @ 100 mls/hr IVPB Q8H [facility] Rx#: [id number] Other: Voiding Method Toilet # Voids 3 4 - Labs CBC & Chem 7: 09/25/23 05:41 09/24/23 05:06 Labs: Abnormal Lab Results - Last 24 Hours (Table) 09/24/23 Range/Units 06:30 WBC 12.23 H (4.50-10.00) X 10*3/uL Neutrophils # 9.52 H (1.80-7.70) X 10*3/uL Monocytes # 1.46 H (0.20-1.00) X 10*3/uL Eosinophils # 0.01 L (0.04-0.35) X 10*3/uL
== END 2023-09-25 13:10 | disposition home or self-care (01) | DRG 621 ==
LOC: 2ORMAIN 08:43 → 4SSUR 13:23
PROVIDERS: ADMIT Surgery; ATTEND Surgery
PROC: 0DB64Z3 Excision of Stomach, Percutaneous Endoscopic Approach, Vertical (ICD-10-PCS; principal; 2023-09-23 10:25)
DX: E66.01 Morbid (severe) obesity due to excess calories (principal); I10 Essential (primary) hypertension; G40.909 Epilepsy, unspecified, not intractable, without status epilepticus; Z68.43 Body mass index [BMI] 50.0-59.9, adult; Z28.311 Partially vaccinated for COVID-19; L40.9 Psoriasis, unspecified; M47.9 Spondylosis, unspecified; M19.90 Unspecified osteoarthritis, unspecified site; Z79.899 Other long term (current) drug therapy; Z71.3 Dietary counseling and surveillance; Z88.5 Allergy status to narcotic agent; Z88.7 Allergy status to serum and vaccine
CPT/HCPCS: 80051; 81025; 82310; 82565; 83735; 84100; 84520; 85025; 88307; 94760

== ENCOUNTER → 2023-09-29 | Outpatient (CLI) | payer MEDICARE, OTHER ==
[2023-09-29 11:07] VITALS: BP 122/83; PULSE 116; TEMP 98.3; BMI 56.4
--- NOTE | 2023-09-30 11:32 | P.HPBAR ---
Bariatric H&P - History & Physicial H&P Date: 09/29/23 History & Physicial: Visit/CC: 1 week sleeve F/U Patient initial contact: Initial weight: Initial weight in pounds: Height: 5 ft 4.5 in Initial BMI: Last weight: Current weight: 151.5 kg Current weight in pounds: 334.00 Current BMI: 56.4 [place] body weight (based on NIH guidelines): 55.565 kg Excess body weight loss: The patient is a 33 year-old F who presents for Bariatric Assessment. Patient resents today for bariatric follow-up. She is doing well. She lost another 6 pounds. She has minimal complaints of GERD. Past Medical History Past Medical History: Hypertension, Osteoarthritis (OA), Seizure Disorder, Skin Disorder Additional Past Medical History / Comment(s): cholelithiasis and psoriasis last seizure 07/2017,. SOB with activity. Osteoarthritis of lower back History of Any Multi-Drug Resistant Organisms: None Reported Past Surgical History: Bariatric Surgery, Section, Cholecystectomy, Orthopedic Surgery Additional Past Surgical History / Comment(s): bilateral knee surgery 1999, 2000. 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 EGD Past Anesthesia/Blood Transfusion Reactions: No Reported Reaction Smoking Status: Never smoker - Past Family History Mother Family Medical History: No Reported History Additional Family Medical History / Comment(s): Mother is healthy Father Family Medical History: No Reported History Additional Family Medical History / Comment(s): Father is healthy Surgical - Exam Vital Signs Temp Pulse BP 98.3 F 116 H 122/83 09/29/23 10:51 09/29/23 10:51 09/29/23 10:51 - General well developed, well nourished, no distress - Eyes PERRL - ENT normal pinna - Neck no masses - Respiratory normal expansion - Cardiovascular Rhythm: regular - Abdomen Abdomen: soft, non tender Bariatric Assessment & Plan Plan: Status post sleeve gastric. Patient did well. She'll follow-up in 4 weeks. Her GERD is minimal will be observed. Bariatric Checklist Checklist: Plan: Checklist: EGD: 1. Hiatal hernia: 2. H. Pylori: HgbA1c: Vitamin D: Smoking: Never smoker Primary care physician referral: Dr. Enciso Psychiatry clearance: Cardiology clearance: Sleep study: Diet journal: VTE risk score: VTE risk level: Rehab needs at discharge:
== END ==
LOC: BARWHC3 10:17
PROVIDERS: ATTEND Surgery
DX: E66.01 Morbid (severe) obesity due to excess calories (principal); I10 Essential (primary) hypertension; M47.816 Spondylosis without myelopathy or radiculopathy, lumbar region; K21.9 Gastro-esophageal reflux disease without esophagitis; G40.909 Epilepsy, unspecified, not intractable, without status epilepticus; Z87.2 Personal history of diseases of the skin and subcutaneous tissue; Z71.3 Dietary counseling and surveillance; Z98.84 Bariatric surgery status; Z88.5 Allergy status to narcotic agent; Z91.018 Allergy to other foods; Z88.7 Allergy status to serum and vaccine; Z90.49 Acquired absence of other specified parts of digestive tract
CPT/HCPCS: 97802; G0463; 99211

== ENCOUNTER → 2023-10-13 | Outpatient (CLI) | payer MEDICARE, OTHER ==
[2023-10-13 12:01] VITALS: BP 142/85; PULSE 91; TEMP 97.8; BMI 55.0
== END ==
LOC: BARWHC3 11:26
PROVIDERS: ATTEND Surgery
DX: E66.01 Morbid (severe) obesity due to excess calories (principal); Z71.3 Dietary counseling and surveillance; Z68.43 Body mass index [BMI] 50.0-59.9, adult; Z88.5 Allergy status to narcotic agent; Z91.018 Allergy to other foods; Z88.7 Allergy status to serum and vaccine
CPT/HCPCS: 97803; G0463; 99211

== ENCOUNTER → 2023-10-21 | Outpatient (CLI) | payer MEDICARE, OTHER ==
[2023-10-21 15:43] LABS: HCT 44.2 % (37.2-46.3); HGB 14.5 g/dL (12.0-15.0); MCH 28.8 pg (27.0-32.0); MCHC 32.8 g/dL (32.0-37.0); MCV 87.9 FL (80.0-97.0); Mean Platelet Volume 10.6 FL (9.5-12.2); NRBC Per 100 WBC 0 X 10*3/uL (0.00-0.01); Platelet Count 197 X 10*3/uL (140-440); RBC 5.03 X 10*6/uL (4.10-5.20); RDW 13.8 % (11.5-14.5); WBC 6.69 X 10*3/uL (4.50-10.00)
[2023-10-21 16:11] LABS: % Iron Saturation 26.59 (12.00-45.00); ALT 33 U/L (8-44); AST 20 U/L (13-35); Albumin 4.1 g/dL (3.8-4.9); Albumin/Globulin Ratio 1.58 Ratio (1.60-3.17); Alkaline Phosphatase 59 U/L (41-126); Blood Urea Nitrogen 9.8 mg/dL (9.0-27.0); Calcium 9.5 mg/dL (8.7-10.3); Carbon Dioxide 22.4 mmol/L (21.6-31.8); Chloride 106 mmol/L (96-109); Ferritin 48.9 ng/mL (10.0-291.0); Globulin 2.6 g/dL (1.6-3.3); Glucose 85 mg/dL (70-110); Iron 92 UG/DL (50-170); Magnesium 1.7 mg/dL (1.5-2.4); Potassium 3.9 mmol/L (3.5-5.5); Sodium 142 mmol/L (135-145); Total Bilirubin 0.3 mg/dL (0.3-1.2); Total Iron Binding Capacity 346 UG/DL (228-460); Total Protein 6.7 g/dL (6.2-8.2)
[2023-10-22 11:58] LABS: Zinc, Serum 71 ug/dL (60-130)
[2023-10-23 06:01] LABS: Vit B1(Thiamine) 48 ug/L (38-122)
[2023-10-23 11:46] LABS: Vitamin A 26 ug/dL (38-106)
== END | disposition home or self-care (01) ==
LOC: LABWHC1 08:20
PROVIDERS: ATTEND Surgery
DX: E66.01 Morbid (severe) obesity due to excess calories (principal); D50.8 Other iron deficiency anemias; E44.0 Moderate protein-calorie malnutrition; E55.9 Vitamin D deficiency, unspecified; T56.894A Toxic effect of other metals, undetermined, initial encounter
CPT/HCPCS: 36415; 80053; 82306; 82607; 82728; 82746; 83540; 83550; 83735; 84255; 84425; 84443; 84590; 84630; 85027

== ENCOUNTER → 2023-11-17 | Outpatient (CLI) | payer MEDICARE, OTHER ==
[2023-11-17 09:33] VITALS: BP 122/85; PULSE 92; TEMP 98.5; BMI 52.0
--- NOTE | 2023-12-30 12:49 | P.HPBAR ---
Bariatric H&P - History & Physicial H&P Date: 11/17/23 History & Physicial: Visit/CC: sleeve F/U Patient initial contact: Initial weight: Initial weight in pounds: Height: 5 ft 4.5 in Initial BMI: Last weight: Current weight: 139.706 kg Current weight in pounds: 308.00 Current BMI: 52.0 [place] body weight (based on NIH guidelines): 55.565 kg Excess body weight loss: The patient is a 33 year-old F who presents for Bariatric Assessment. Patient presents today for sleeve gastrectomy follow-up. Patient is in minimal plaints of gerd. She is an excellent weight loss. On lost 26 pounds since her last visit. Past Medical History Past Medical History: Hypertension, Osteoarthritis (OA), Seizure Disorder, Skin Disorder Additional Past Medical History / Comment(s): cholelithiasis and psoriasis last seizure 07/2017,. SOB with activity. Osteoarthritis of lower back History of Any Multi-Drug Resistant Organisms: None Reported Past Surgical History: Bariatric Surgery, Section, Cholecystectomy, Orthopedic Surgery Additional Past Surgical History / Comment(s): bilateral knee surgery 1999, 2000. 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 EGD Past Anesthesia/Blood Transfusion Reactions: No Reported Reaction Past Psychological History: No Psychological Hx Reported Additional Psychological History / Comment(s): Pt states she lives her 4 yr old son and her roomate. She is independent. Smoking Status: Never smoker Past Alcohol Use History: None Reported Past Drug Use History: None Reported - Past Family History Mother Family Medical History: No Reported History Additional Family Medical History / Comment(s): Mother is healthy Father Family Medical History: No Reported History Additional Family Medical History / Comment(s): Father is healthy Surgical - Exam Vital Signs Temp Pulse BP 98.5 F 92 122/85 11/17/23 09:13 11/17/23 09:13 11/17/23 09:13 - General well developed, well nourished, no distress - Eyes PERRL - ENT normal pinna - Neck no masses - Respiratory normal expansion - Cardiovascular Rhythm: regular - Abdomen Abdomen: soft, non tender Bariatric Assessment & Plan Plan: Resolving morbid obesity. Patient's gerd is minimal and will be observed. She will follow-up in 4 weeks. Bariatric Checklist Checklist: Plan: Checklist: EGD: 1. Hiatal hernia: 2. H. Pylori: HgbA1c: Vitamin D: Smoking: Never smoker Primary care physician referral: Dr. Enciso Psychiatry clearance: Cardiology clearance: Sleep study: Diet journal: VTE risk score: VTE risk level: Rehab needs at discharge:
== END ==
LOC: BARWHC3 09:01
PROVIDERS: ATTEND Surgery
DX: Z09 Encounter for follow-up examination after completed treatment for conditions other than malignant neoplasm (principal); K21.9 Gastro-esophageal reflux disease without esophagitis; E66.01 Morbid (severe) obesity due to excess calories; I10 Essential (primary) hypertension; M19.90 Unspecified osteoarthritis, unspecified site; Z86.69 Personal history of other diseases of the nervous system and sense organs; Z87.39 Personal history of other diseases of the musculoskeletal system and connective tissue; Z87.19 Personal history of other diseases of the digestive system; Z98.84 Bariatric surgery status; Z68.43 Body mass index [BMI] 50.0-59.9, adult; Z88.5 Allergy status to narcotic agent; Z91.018 Allergy to other foods; Z88.7 Allergy status to serum and vaccine
CPT/HCPCS: 99211

== ENCOUNTER → 2023-12-22 | Outpatient (CLI) | payer MEDICARE, OTHER ==
[2023-12-22 09:33] VITALS: BP 124/87; PULSE 87; TEMP 98.7; BMI 49.1
--- NOTE | 2023-12-23 09:43 | P.HPBAR ---
Bariatric H&P - History & Physicial H&P Date: 12/22/23 History & Physicial: Visit/CC: 3 month sleeve F/U Patient initial contact: Initial weight: Initial weight in pounds: Height: 5 ft 4.5 in Initial BMI: Last weight: Current weight: 131.995 kg Current weight in pounds: 291.00 Current BMI: 49.1 [place] body weight (based on NIH guidelines): 55.565 kg Excess body weight loss: The patient is a 33 year-old F who presents for Bariatric Assessment. This is a 33-year-old female who presents today for sleeve gastric follow-up. She has been doing quite well. She is in normal gerd. She is lost 17 pounds her last visit. Past Medical History Past Medical History: Hypertension, Osteoarthritis (OA), Seizure Disorder, Skin Disorder Additional Past Medical History / Comment(s): cholelithiasis and psoriasis last seizure 07/2017,. SOB with activity. Osteoarthritis of lower back History of Any Multi-Drug Resistant Organisms: None Reported Past Surgical History: Bariatric Surgery, Section, Cholecystectomy, Orthopedic Surgery Additional Past Surgical History / Comment(s): bilateral knee surgery 1999, 2000. 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 EGD Past Anesthesia/Blood Transfusion Reactions: No Reported Reaction Past Psychological History: No Psychological Hx Reported Additional Psychological History / Comment(s): Pt states she lives her 4 yr old son and her roomate. She is independent. Smoking Status: Never smoker Past Alcohol Use History: None Reported Past Drug Use History: None Reported - Past Family History Mother Family Medical History: No Reported History Additional Family Medical History / Comment(s): Mother is healthy Father Family Medical History: No Reported History Additional Family Medical History / Comment(s): Father is healthy Surgical - Exam Vital Signs Temp Pulse BP 98.7 F 87 124/87 12/22/23 09:22 12/22/23 09:22 12/22/23 09:22 - General well developed, well nourished, no distress - Eyes PERRL - ENT normal pinna - Neck no masses - Abdomen Abdomen: soft, non tender Bariatric Assessment & Plan Plan: Patient is gerd is minimal. She will be observed. Her weight loss is excellent. She will follow-up in 4 weeks. Bariatric Checklist Checklist: Plan: Checklist: EGD: 1. Hiatal hernia: 2. H. Pylori: HgbA1c: Vitamin D: Smoking: Never smoker Primary care physician referral: Dr. Enciso Psychiatry clearance: Cardiology clearance: Sleep study: Diet journal: VTE risk score: VTE risk level: Rehab needs at discharge:
== END ==
LOC: BARWHC3 08:52
PROVIDERS: ATTEND Surgery
DX: E66.01 Morbid (severe) obesity due to excess calories (principal); K21.9 Gastro-esophageal reflux disease without esophagitis; I10 Essential (primary) hypertension; M47.816 Spondylosis without myelopathy or radiculopathy, lumbar region; Z71.3 Dietary counseling and surveillance; Z68.42 Body mass index [BMI] 45.0-49.9, adult; Z88.5 Allergy status to narcotic agent; Z91.018 Allergy to other foods; Z88.7 Allergy status to serum and vaccine; Z98.84 Bariatric surgery status
CPT/HCPCS: 97803; G0463; 99211

== ENCOUNTER → 2023-12-31 | Outpatient (CLI) | payer MEDICARE, OTHER ==
[2023-12-31 16:39] LABS: % Iron Saturation 20.47 (12.00-45.00); ALT 32 U/L (8-44); AST 25 U/L (13-35); Albumin 4.4 g/dL (3.8-4.9); Albumin/Globulin Ratio 1.63 Ratio (1.60-3.17); Alkaline Phosphatase 67 U/L (41-126); BUN/Creat Ratio 12.71 Ratio (12.00-20.00); Blood Urea Nitrogen 8.9 mg/dL (9.0-27.0); Calcium 9.7 mg/dL (8.7-10.3); Carbon Dioxide 23.6 mmol/L (21.6-31.8); Chloride 105 mmol/L (96-109); Ferritin 34.3 ng/mL (10.0-291.0); Globulin 2.7 g/dL (1.6-3.3); Glucose 86 mg/dL (70-110); Iron 78 UG/DL (50-170); Magnesium 1.9 mg/dL (1.5-2.4); Potassium 4.3 mmol/L (3.5-5.5); Sodium 142 mmol/L (135-145); Total Bilirubin 0.4 mg/dL (0.3-1.2); Total Iron Binding Capacity 381 UG/DL (228-460); Total Protein 7.1 g/dL (6.2-8.2)
[2023-12-31 16:43] LABS: HCT 45.6 % (37.2-46.3); HGB 14.8 g/dL (12.0-15.0); MCHC 32.5 g/dL (32.0-37.0); MCV 89.2 FL (80.0-97.0); NRBC Per 100 WBC 0 X 10*3/uL (0.00-0.01); Platelet Count 258 X 10*3/uL (140-440); RBC 5.11 X 10*6/uL (4.10-5.20); RDW 12.7 % (11.5-14.5); WBC 7.79 X 10*3/uL (4.50-10.00)
[2024-01-01 14:54] LABS: Zinc, Serum 71 ug/dL (60-130)
[2024-01-02 08:50] LABS: Vitamin A 37 ug/dL (38-106)
== END | disposition home or self-care (01) ==
LOC: LABWHC1 10:34
PROVIDERS: ATTEND Surgery
DX: E66.01 Morbid (severe) obesity due to excess calories (principal); D50.8 Other iron deficiency anemias; E44.0 Moderate protein-calorie malnutrition; E55.9 Vitamin D deficiency, unspecified; T56.894A Toxic effect of other metals, undetermined, initial encounter
CPT/HCPCS: 36415; 80053; 82306; 82607; 82728; 82746; 83540; 83550; 83735; 84255; 84425; 84443; 84590; 84630; 85027

== ENCOUNTER → 2024-01-26 | Outpatient (CLI) | payer MEDICARE, OTHER ==
[2024-01-26 09:27] VITALS: BP 120/77; PULSE 71; TEMP 98.2; BMI 46.9
--- NOTE | 2024-01-26 12:49 | P.HPBAR ---
Bariatric H&P - History & Physicial H&P Date: 01/26/24 History & Physicial: Visit/CC: SLEEVE F/U Patient initial contact: Initial weight: Initial weight in pounds: Height: 5 ft 4.5 in Initial BMI: Last weight: Current weight: 126.053 kg Current weight in pounds: 277.90 Current BMI: 46.9 [place] body weight (based on NIH guidelines): 55.565 kg Excess body weight loss: The patient is a 33 year-old F who presents for Bariatric Assessment. Patient presents today for sleeve gastrectomy fall. She's lost about 13 pounds. She has lost over 100 pounds since she started her bariatric hernia. He's had minimal GERD. Past Medical History Past Medical History: Hypertension, Osteoarthritis (OA), Seizure Disorder, Skin Disorder Additional Past Medical History / Comment(s): cholelithiasis and psoriasis last seizure 07/2017,. SOB with activity. Osteoarthritis of lower back History of Any Multi-Drug Resistant Organisms: None Reported Past Surgical History: Bariatric Surgery, Section, Cholecystectomy, Orthopedic Surgery Additional Past Surgical History / Comment(s): bilateral knee surgery 1999, 2000. 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 EGD Past Anesthesia/Blood Transfusion Reactions: No Reported Reaction Past Psychological History: No Psychological Hx Reported Additional Psychological History / Comment(s): Pt states she lives her 4 yr old son and her roomate. She is independent. Smoking Status: Never smoker Past Alcohol Use History: None Reported Past Drug Use History: None Reported - Past Family History Mother Family Medical History: No Reported History Additional Family Medical History / Comment(s): Mother is healthy Father Family Medical History: No Reported History Additional Family Medical History / Comment(s): Father is healthy Surgical - Exam Vital Signs Temp Pulse BP 98.2 F 71 120/77 01/26/24 09:23 01/26/24 09:23 01/26/24 09:23 - General well developed, well nourished, no distress - Eyes PERRL - ENT normal pinna, normal nares - Abdomen Abdomen: soft, non tender Bariatric Assessment & Plan Plan: Patient's GERD is minimal and will be observed. She'll follow-up in 4 weeks. Bariatric Checklist Checklist: Plan: Checklist: EGD: 1. Hiatal hernia: 2. H. Pylori: HgbA1c: Vitamin D: Smoking: Never smoker Primary care physician referral: Dr. Enciso Psychiatry clearance: Cardiology clearance: Sleep study: Diet journal: VTE risk score: VTE risk level: Rehab needs at discharge:
== END ==
LOC: BARWHC3 09:03
PROVIDERS: ATTEND Surgery
DX: K21.9 Gastro-esophageal reflux disease without esophagitis (principal); E66.01 Morbid (severe) obesity due to excess calories; Z98.84 Bariatric surgery status; I10 Essential (primary) hypertension; Z88.5 Allergy status to narcotic agent; Z91.018 Allergy to other foods; Z88.7 Allergy status to serum and vaccine; Z68.42 Body mass index [BMI] 45.0-49.9, adult
CPT/HCPCS: 99211

== ENCOUNTER → 2024-03-22 | Outpatient (CLI) | payer MEDICARE, OTHER ==
[2024-03-22 13:29] VITALS: BP 118/79; PULSE 76; RESP 14; TEMP 98.4; BMI 44.0
--- NOTE | 2024-03-22 17:29 | P.HPBAR ---
Bariatric H&P - History & Physicial H&P Date: 03/22/24 History & Physicial: Visit/CC: follow up with dr. menjivar Patient initial contact: Initial weight: Initial weight in pounds: Height: 5 ft 4.5 in Initial BMI: Last weight: Current weight: 118.206 kg Current weight in pounds: 260.60 Current BMI: 44.0 Hood body weight (based on NIH guidelines): 55.565 kg Excess body weight loss: The patient is a 33 year-old F who presents for Bariatric Assessment.patient presents today for David follow-up. She's lost 17 pounds her last visit. She's had some minimal GERD. Past Medical History Past Medical History: Hypertension, Osteoarthritis (OA), Seizure Disorder, Skin Disorder Additional Past Medical History / Comment(s): cholelithiasis and psoriasis last seizure 07/2017,. SOB with activity. Osteoarthritis of lower back History of Any Multi-Drug Resistant Organisms: None Reported Past Surgical History: Bariatric Surgery, Section, Cholecystectomy, Orthopedic Surgery Additional Past Surgical History / Comment(s): bilateral knee surgery 1999, 2000. 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 EGD Past Anesthesia/Blood Transfusion Reactions: No Reported Reaction Past Psychological History: No Psychological Hx Reported Additional Psychological History / Comment(s): Pt states she lives her 4 yr old son and her roomate. She is independent. Smoking Status: Never smoker Past Alcohol Use History: None Reported Past Drug Use History: None Reported - Past Family History Mother Family Medical History: No Reported History Additional Family Medical History / Comment(s): Mother is healthy Father Family Medical History: No Reported History Additional Family Medical History / Comment(s): Father is healthy Surgical - Exam Vital Signs Temp Pulse Resp BP 98.4 F 76 14 118/79 03/22/24 12:44 03/22/24 12:44 03/22/24 12:44 03/22/24 12:44 - General well developed, well nourished, no distress - Eyes PERRL - ENT normal pinna - Neck no masses - Respiratory normal expansion - Cardiovascular Rhythm: regular - Abdomen Abdomen: soft, non tender Bariatric Assessment & Plan Plan: patient's GERD is minimal elevated observed. She'll follow-up in 4 weeks. Bariatric Checklist Checklist: Plan: Checklist: EGD: 1. Hiatal hernia: 2. H. Pylori: HgbA1c: Vitamin D: Smoking: Never smoker Primary care physician referral: Dr. Enciso Psychiatry clearance: Cardiology clearance: Sleep study: Diet journal: VTE risk score: VTE risk level: Rehab needs at discharge:
== END ==
LOC: BARWHC3 10:14
PROVIDERS: ATTEND Surgery
DX: K21.9 Gastro-esophageal reflux disease without esophagitis (principal); Z98.84 Bariatric surgery status; Z88.5 Allergy status to narcotic agent; Z91.018 Allergy to other foods; Z88.7 Allergy status to serum and vaccine
CPT/HCPCS: 99211

== ENCOUNTER 2024-03-25 09:07 | Emergency (ER) | payer MEDICARE, OTHER ==
[2024-03-25 09:19] VITALS: TEMP 98
[2024-03-25 10:22] LABS: Appearance,Urine Clear (Clear); Bacteria,Urine Rare /hpf; Bilirubin,Urine Negative (Negative); Blood,Urine Negative (Negative); Color,Urine Yellow; Glucose,Urine (UA) Negative (Negative); Ketones,Urine Trace (Negative); Leukocyte Esterase,Urine Small (Negative); Mucus,Urine Many /hpf; Nitrite,Urine Negative (Negative); Protein,Urine Trace (Negative); Specific Gravity,Urine 1.033 (1.001-1.035); Squamous Epithelial Cell,Urine 5 /hpf (0-4); WBC,Urine 1 /hpf (0-5)
--- NOTE | 2024-03-25 11:03 | ED ---
Female Urogenital HPI - General Chief complaint: Vaginal Bleeding Stated complaint: Vaginal bleeding/ 6wks preg Time Seen by Provider: 03/25/24 09:15 Source: patient, RN notes reviewed Mode of arrival: ambulatory Limitations: no limitations - History of Present Illness Initial comments: 33-year-old female presents emergency department complaint of vaginal bleeding in early . Patient states she is A1 in which patient states that she is approximately 6 weeks started having vaginal bleeding she is O+ blood type she states that she has had a miscarriage in the past along with triplets. Patient denies any fevers chills mild abdominal cramping - Related Data Home Medications Medication Instructions Recorded Confirmed Vit D (Unk) 1 tab PO DAILY 07/02/23 03/22/24 Multivitamins, Thera [Multivitamin 1 tab PO DAILY 12/22/23 03/22/24 (formulary)] Previous Rx's Medication Instructions Recorded Acetaminophen Tab [Tylenol] 1,000 mg PO Q6HR PRN #30 tablet 09/25/23 levETIRAcetam ORAL SOLN [Keppra 1,000 mg PO BID 15 Days #300 ml 09/25/23 Oral Soln] Allergies Allergy/AdvReac Type Severity Reaction Status Date / Time morphine Allergy Intermediate Rash/Hives Verified 03/25/24 09:11 chocolate flavor Allergy Rash/Hives Verified 03/25/24 09:11 COVID-19 (SARS-CoV-2) Allergy Rash/Hives Verified 03/25/24 09:11 vaccine, viry Review of Systems ROS Statement: Those systems with pertinent positive or pertinent negative responses have been documented in the HPI. ROS Other: All systems not noted in ROS Statement are negative. Past Medical History Past Medical History: Hypertension, Osteoarthritis (OA), Seizure Disorder, Skin Disorder Additional Past Medical History / Comment(s): cholelithiasis and psoriasis last seizure 07/2017,. SOB with activity. Osteoarthritis of lower back History of Any Multi-Drug Resistant Organisms: None Reported Past Surgical History: Bariatric Surgery, Section, Cholecystectomy, Orthopedic Surgery Additional Past Surgical History / Comment(s): bilateral knee surgery 1999, 2000. 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 EGD Past Anesthesia/Blood Transfusion Reactions: No Reported Reaction Past Psychological History: No Psychological Hx Reported Smoking Status: Never smoker Past Alcohol Use History: None Reported Past Drug Use History: None Reported - Past Family History Mother Family Medical History: No Reported History Additional Family Medical History / Comment(s): Mother is healthy Father Family Medical History: No Reported History Additional Family Medical History / Comment(s): Father is healthy General Exam Limitations: no limitations General appearance: alert, in no apparent distress Head exam: Present: atraumatic, normocephalic, normal inspection Eye exam: Present: normal appearance, PERRL, EOMI. Absent: scleral icterus, conjunctival injection, periorbital swelling Respiratory exam: Present: normal lung sounds bilaterally. Absent: respiratory distress, wheezes, rales, rhonchi, stridor Cardiovascular Exam: Present: regular rate, normal rhythm, normal heart sounds. Absent: systolic murmur, diastolic murmur, rubs, gallop, clicks GI/Abdominal exam: Present: soft, normal bowel sounds. Absent: distended, tenderness, guarding, rebound, rigid Course Vital Signs 03/25/24 03/25/24 09:09 11:50 Temperature 98 F Pulse Rate 86 83 Respiratory 18 16 Rate Blood Pressure 132/81 126/78 O2 Sat by Pulse 99 100 Oximetry Medical Decision Making - Medical Decision Making Was pt. sent in by a medical professional or institution (, PA, [employer]ERSON [employer], urgent care, hospital, or custodial...) When possible be specific @ -No Did you speak to anyone other than the patient for history (EMS, parent, family, police, friend...)? What history was obtained from this source @ -No Did you review nursing and triage notes (agree or disagree)? Why? @ -I reviewed and agree with nursing and triage notes Were old charts reviewed (outside hosp., previous admission, EMS record, old EKG, old radiological studies, urgent care reports/EKG's, custodial records)? Report findings @ -No old charts were reviewed Differential Diagnosis (chest pain, altered mental status, abdominal pain women, abdominal pain men, vaginal bleeding, weakness, fever, dyspnea, syncope, headache, dizziness, GI bleed, back pain, seizure, CVA, palpatations, mental health, musculoskeletal)? @ -Differential Vaginal Bleeding: Spontaneous , threatened , molar , ectopic , bloody show, incompetent cervix, abruptioplacenta, placenta previa, uterine rupture, dysfunctional uterine bleeding, hemorrhage, uterine fibroids, this is not meant to be an all-inclusive list. EKG interpreted by me (3pts min.). @ -None X-rays interpreted by me (1pt min.). @ -None done CT interpreted by me (1pt min.). @ -None done U/S interpreted by me (1pt. min.). @ -Ultrasound transvaginal OB -shows no intrauterine gestational sac no acute process What testing was considered but not performed or refused? (CT, X-rays, U/S, labs)? Why? @ -None What meds were considered but not given or refused? Why? @ -None Did you discuss the management of the patient with other professionals (professionals i.e. , PA, [employer]ERSON [employer], lab, RT, psych nurse, social services counselor, redye hand, teacher, fire information officer, case liner)? Give summary @ -No Was smoking cessation discussed for >3mins.? @ -No Was critical care preformed (if so, how long)? @ -No Were there social determinants of health that impacted care today? How? (Homelessness, low income, unemployed, alcoholism, drug addiction, transportation, low edu. Level, literacy, decrease access to med. care, fdc, rehab)? @ -No Was there de-escalation of care discussed even if they declined (Discuss DNR or withdrawal of care, Hospice)? DNR status @ -No What co-morbidities impacted this encounter? (DM, HTN, Smoking, COPD, CAD, Cancer, CVA, ARF, Chemo, Hep., AIDS, mental health diagnosis, sleep apnea, morbid obesity)? @ -None Was patient admitted / discharged? Hospital course, mention meds given and route, prescriptions, significant lab abnormalities, going to OR and other pertinent info. @ -Discharge patient presented for vaginal bleeding early beta quant is less than thousand will have repeat EKG concerning for threatened miscarriage Undiagnosed new problem with uncertain prognosis? @ -No Drug Therapy requiring intensive monitoring for toxicity (Heparin, Nitro, Insulin, Cardizem)? @ -No Were any procedures done? @ -No Diagnosis/symptom? @ -Threatened miscarriage Acute, or Chronic, or Acute on Chronic? @ -Acute Uncomplicated (without systemic symptoms) or Complicated (systemic symptoms)? @ -Uncomplicated Side effects of treatment? @ -No Exacerbation, Progression, or Severe Exacerbation? @ -No Poses a threat to life or bodily function? How? (Chest pain, USA, DC, pneumonia, PE, COPD, DKA, ARF, appy, cholecystitis, CVA, Diverticulitis, Homicidal, Suicidal, threat to staff... and all critical care pts) @ -No - Lab Data Lab Results 03/25/24 03/25/24 Range/Units 09:37 09:42 HCG, Quant 591.6 mIU/mL Urine Color Yellow Urine Appearance Clear (Clear) Urine pH 6.0 (5.0-8.0) Ur Specific [place] 1.033 (1.001-1.035) Urine Protein Trace H (Negative) Urine Glucose (UA) Negative (Negative) Urine Ketones Trace H (Negative) Urine Blood Negative (Negative) Urine Nitrite Negative (Negative) Urine Bilirubin Negative (Negative) Urine Urobilinogen 2.0 (<2.0) mg/dL Ur Leukocyte Esterase Small H (Negative) Urine WBC 1 (0-5) /hpf Ur Squamous Epith Cells 5 H (0-4) /hpf Urine Bacteria Rare H (None) /hpf Urine Mucus Many H (None) /hpf Disposition Clinical Impression: Threatened miscarriage Disposition: HOME SELF-CARE Condition: Stable Instructions (If sedation given, give patient instructions): Threatened Miscarriage (ED) Additional Instructions: Please return to the Emergency Department if symptoms worsen or any other concerns. Is patient prescribed a controlled substance at d/c from ED?: No Referrals: Zaria Raya MD [Primary Care Provider] - 1-2 days Time of Disposition: 11:42
--- NOTE | 2024-03-25 11:08 | US ---
EXAMINATION TYPE: Transabdominal DATE OF EXAM: 03/25/2024 10:28 AM COMPARISON: NONE CLINICAL INDICATION: Female, 33 years old with history of pain, bleeding; Pelvic cramping and spottin g x couple days EXAM PERFORMED: Transvaginal (TV) and Transabdominal (TA) EXAM MEASUREMENTS: GESTATIONAL AGE / DATING Physician Established: Not yet established Dates by LMP: LMP unknown Dates by First Scan: No previous this is first scan Dates by Current Scan for: No IUP seen at this time MATERNAL ANATOMY Difficult and limited study due to patient body habitus Uterus: 10.2 x 5.3 x 6.7cm, thickened endometrium Right Ovary: 3.1 x 2.1 x 2.8cm Left Ovary: not seen due to overlying bowel gas Post CDS / Adnexa: wnl Presence of free fluid: no Presence of corpus luteal cyst: right ovary - 1.7 x 1.7 x 2.0cm Presence of subchorionic bleed: no GESTATION / SURVEY IUP: No IUP seen at this time Date of LMP: Unknown Beta HcG (if available): Not available at time of exam IMPRESSION: No evidence of intrauterine gestational sac, correlate with B-hCG. If positive, this could represent early , ectopic or spontaneous . Follow up pelvic ultrasound in 5-7 days a nd serial beta hCG studies are recommended.
[2024-03-25 12:10] VITALS: BP 126/78; PULSE 83; RESP 16
== END 2024-03-25 11:51 | disposition home or self-care (01) ==
LOC: EC 09:07
DX: O20.0 Threatened abortion (principal); Z88.5 Allergy status to narcotic agent; Z88.7 Allergy status to serum and vaccine; Z88.8 Allergy status to other drugs, medicaments and biological substances; Z3A.01 Less than 8 weeks gestation of pregnancy
CPT/HCPCS: 36415; 76801; 76817; 81001; 84702; 99284

== ENCOUNTER → 2024-04-26 | Outpatient (CLI) | payer MEDICARE, OTHER ==
[2024-04-26 10:48] VITALS: BP 126/81; PULSE 82; RESP 16; TEMP 98.4; BMI 43.2
--- NOTE | 2024-04-26 11:10 | P.HPBAR ---
Bariatric H&P - History & Physicial H&P Date: 04/26/24 History & Physicial: Visit/CC: follow up Patient initial contact: Initial weight: Initial weight in pounds: Height: 5 ft 4 in Initial BMI: Last weight: Current weight: 114.078 kg Current weight in pounds: 251.50 Current BMI: 43.2 Counce body weight (based on NIH guidelines): 54.431 kg Excess body weight loss: The patient is a 33 year-old F who presents for Bariatric Assessment.patient presents today for bariatric follow-up. She's had excellent weight loss. She has minimal complaints of GERD. Past Medical History Past Medical History: Hypertension, Osteoarthritis (OA), Seizure Disorder, Skin Disorder Additional Past Medical History / Comment(s): cholelithiasis and psoriasis last seizure 07/2017,. SOB with activity. Osteoarthritis of lower back, miscarriage History of Any Multi-Drug Resistant Organisms: None Reported Past Surgical History: Bariatric Surgery, Section, Cholecystectomy, Or thopedic Surgery Additional Past Surgical History / Comment(s): bilateral knee surgery 1999, 2000. 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 EGD Past Anesthesia/Blood Transfusion Reactions: No Reported Reaction Past Psychological History: No Psychological Hx Reported Additional Psychological History / Comment(s): Pt states she lives her children. She is independent. Smoking Status: Never smoker Past Alcohol Use History: None Reported Past Drug Use History: None Reported - Past Family History Mother Family Medical History: No Reported History Additional Family Medical History / Comment(s): Mother is healthy Father Family Medical History: No Reported History Additional Family Medical History / Comment(s): Father is healthy Surgical - Exam Vital Signs Temp Pulse Resp BP Pulse Ox 98.4 F 82 16 126/81 100 04/26/24 10:45 04/26/24 10:45 04/26/24 10:45 04/26/24 10:45 04/26/24 10:45 - General well developed, well nourished, no distress - Eyes PERRL - ENT normal pinna - Neck no masses - Respiratory normal expansion - Cardiovascular Rhythm: regular - Abdomen Abdomen: soft, non tender Bariatric Assessment & Plan Plan: patient has had excellent weight loss. Her morbid obesity is improving. Patient will follow-up in 2 monthss. Her GERD is minimal and will be observed. Bariatric Checklist Checklist: Plan: Checklist: EGD: 1. Hiatal hernia: 2. H. Pylori: HgbA1c: Vitamin D: Smoking: Never smoker Primary care physician referral: Dr. Enciso Psychiatry clearance: Cardiology clearance: Sleep study: Diet journal: VTE risk score: VTE risk level: Rehab needs at discharge:
== END ==
LOC: BARWHC3 10:25
PROVIDERS: ATTEND Surgery
DX: E66.01 Morbid (severe) obesity due to excess calories (principal); K21.9 Gastro-esophageal reflux disease without esophagitis; Z98.84 Bariatric surgery status; Z90.3 Acquired absence of stomach [part of]; Z88.7 Allergy status to serum and vaccine; Z88.5 Allergy status to narcotic agent; Z91.018 Allergy to other foods; Z68.41 Body mass index [BMI] 40.0-44.9, adult
CPT/HCPCS: 99211

== ENCOUNTER 2024-07-29 10:18 | Emergency (ER) | payer MEDICARE, OTHER ==
[2024-07-29 10:29] VITALS: RESP 20
--- NOTE | 2024-07-29 11:06 | ED ---
Female Urogenital HPI - General Chief complaint: Vaginal Bleeding Stated complaint: 11wks preg, vag bleeding Time Seen by Provider: 07/29/24 10:31 Source: patient, RN notes reviewed Mode of arrival: ambulatory Limitations: no limitations - History of Present Illness Initial comments: this is a 34 year old female [id number] history of epilepsy on Keppra who presents emergency department with chief complaint of abdominal cramping and vaginal bleeding. Patient states that her last menstrual cycle was in the beginning of May. States that the vaginal bleeding cramping began yesterday. She denies symptoms of dysuria, hematuria, increase in urinary frequency or urgency, nausea, fevers or chills. Has not had any imaging for this yet has not seen a OB. history of gastric sleeve in September 2023, cholecystectomy, and previous section. - Related Data Home Medications Medication Instructions Recorded Confirmed Vit D (Unk) 1 tab PO DAILY 07/02/23 04/26/24 Multivitamins, Thera [Multivitamin 1 tab PO DAILY 12/22/23 04/26/24 (formulary)] Medroxyprogesterone Acetate 150 mg IM ONCE 04/26/24 04/26/24 [Depo-Provera] Previous Rx's Medication Instructions Recorded Acetaminophen Tab [Tylenol] 1,000 mg PO Q6HR PRN #30 tablet 09/25/23 levETIRAcetam ORAL SOLN [Keppra 1,000 mg PO BID 15 Days #300 ml 09/25/23 Oral Soln] Allergies Allergy/AdvReac Type Severity Reaction Status Date / Time morphine Allergy Intermediate Rash/Hives Verified 07/29/24 10:29 chocolate flavor Allergy Rash/Hives Verified 07/29/24 10:29 COVID-19 (SARS-CoV-2) Allergy Rash/Hives Verified 07/29/24 10:29 vaccine, viry Review of Systems ROS Statement: Those systems with pertinent positive or pertinent negative responses have been documented in the HPI. ROS Other: All systems not noted in ROS Statement are negative. Past Medical History Past Medical History: Hypertension, Osteoarthritis (OA), Seizure Disorder, Skin Disorder Additional Past Medical History / Comment(s): cholelithiasis and psoriasis last seizure 07/2017,. SOB with activity. Osteoarthritis of lower back, miscarriage History of Any Multi-Drug Resistant Organisms: None Reported Past Surgical History: Bariatric Surgery, Section, Cholecystectomy, Orthopedic Surgery Additional Past Surgical History / Comment(s): bilateral knee surgery . 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 EGD Past Anesthesia/Blood Transfusion Reactions: No Reported Reaction Past Psychological History: No Psychological Hx Reported Smoking Status: Never smoker Past Alcohol Use History: None Reported Past Drug Use History: None Reported - Past Family History Mother Family Medical History: No Reported History Additional Family Medical History / Comment(s): Mother is healthy Father Family Medical History: No Reported History Additional Family Medical History / Comment(s): Father is healthy General Exam Limitations: no limitations General appearance: alert, in no apparent distress Head exam: Present: atraumatic, normocephalic, normal inspection ENT exam: Present: normal exam, mucous membranes moist Neck exam: Present: normal inspection. Absent: tenderness, meningismus, lymphadenopathy Respiratory exam: Present: normal lung sounds bilaterally. Absent: respiratory distress, wheezes, rales, rhonchi, stridor Cardiovascular Exam: Present: regular rate, normal rhythm, normal heart sounds. Absent: systolic murmur, diastolic murmur, rubs, gallop, clicks GI/Abdominal exam: Present: soft, tenderness (suprapubic), normal bowel sounds. Absent: distended, guarding, rebound, rigid Extremities exam: Present: normal inspection, full ROM, normal capillary refill. Absent: tenderness, pedal edema, joint swelling, calf tenderness Back exam: Present: normal inspection Skin exam: Present: warm, dry, intact, normal color. Absent: rash Course Vital Signs 07/29/24 10:27 Temperature 97.9 F Pulse Rate 86 Respiratory 20 Rate Blood Pressure 116/76 O2 Sat by Pulse 99 Oximetry Medical Decision Making - Medical Decision Making Was pt. sent in by a medical professional or institution (, PA, GROUP COUNSELOR, urgent care, hospital, or detention...) When possible be specific @ -No Did you speak to anyone other than the patient for history (EMS, parent, family, police, friend...)? What history was obtained from this source @ -No Did you review nursing and triage notes (agree or disagree)? Why? @ -I reviewed and agree with nursing and triage notes Were old charts reviewed (outside hosp., previous admission, EMS record, old EKG, old radiological studies, urgent care reports/EKG's, detention records)? Report findings @ -No old charts were reviewed Differential Diagnosis (chest pain, altered mental status, abdominal pain women, abdominal pain men, vaginal bleeding, weakness, fever, dyspnea, syncope, headache, dizziness, GI bleed, back pain, seizure, CVA, palpatations, mental health, musculoskeletal)? @ -Differential Vaginal Bleeding: Spontaneous , threatened , molar , ectopic , bloody show, incompetent cervix, abruptioplacenta, placenta previa, uterine r upture, dysfunctional uterine bleeding, hemorrhage, uterine fibroids, this is not meant to be an all-inclusive list. EKG interpreted by me (3pts min.). @ -None X-rays interpreted by me (1pt min.). @ -None done CT interpreted by me (1pt min.). @ -None done U/S interpreted by me (1pt. min.). @ -transabdominal ultrasound reveals a single live intrauterine gestation estimated 11 weeks 0 days gestation with a cardiac activity of 176. What testing was considered but not performed or refused? (CT, X-rays, U/S, labs)? Why? @ -None What meds were considered but not given or refused? Why? @ -None Did you discuss the management of the patient with other professionals (professionals i.e. , PA, GROUP COUNSELOR, lab, RT, psych nurse, psychosocial rehabilitation counselor, steam table worker, teacher, first officer, senior case manager)? Give summary @ -No Was smoking cessation discussed for >3mins.? @ -No Was critical care preformed (if so, how long)? @ -No Were there social determinants of health that impacted care today? How? (Homelessness, low income, unemployed, alcoholism, drug addiction, transportation, low edu. Level, literacy, decrease access to med. care, prison, rehab)? @ -No Was there de-escalation of care discussed even if they declined (Discuss DNR or withdrawal of care, Hospice)? DNR status @ -No What co-morbidities impacted this encounter? (DM, HTN, Smoking, COPD, CAD, Cancer, CVA, ARF, Chemo, Hep., AIDS, mental health diagnosis, sleep apnea, morbid obesity)? @ -None Was patient admitted / discharged? Hospital course, mention meds given and route, prescriptions, significant lab abnormalities, going to OR and other pertinent info. @ -dsicharged. 34-year-old female with vaginal bleeding and abdominal cramping. Patient's vitals are stable. Physical examination reveals tenderness to palpat ion of the suprapubic lower abdomen. Patient is symptomatically treated with Tylenol pending laboratory results and ultrasound. She is in agreement with this plan. cbc and cmp within normal limits, blood type is O+, ultrasound reveals single live intrauterine 11 weeks 0 days gestation with a heart rate of 176, urinalysis remarkable for contamination with squamous epithelial cells however no signs of infection. Patient was provided with laboratory studies and ultrasound imaging for today and recommended to follow-up outpatient with OB for further evaluation. Patient symptoms are diagnosed as a threatened due to vaginal bleeding during first trimester . All questions answered at bedside and strict return parameters discussed with the patient she is verbalized understanding. Case discussed with Dr. Guevara Undiagnosed new problem with uncertain prognosis? @ -No Drug Therapy requiring intensive monitoring for toxicity (Heparin, Nitro, Insulin, Cardizem)? @ -No Were any procedures done? @ -No Diagnosis/symptom? @ -abdominal cramping during , threatened miscarriage, intrauterine Acute, or Chronic, or Acute on Chronic? @ -Acute Uncomplicated (without systemic symptoms) or Complicated (systemic symptoms)? @ -uncomplicated Side effects of treatment? @ -No Exacerbation, Progression, or Severe Exacerbation? @ -No Poses a threat to life or bodily function? How? (Chest pain, [place], [place], pneumonia, PE, COPD, DKA, ARF, appy, cholecystitis, CVA, Diverticulitis, Homicidal, Suicidal, threat to staff... and all critical care pts) @ -No - Lab Data Result diagrams: 07/29/24 11:10 07/29/24 11:10 Lab Results 07/29/24 07/29/24 07/29/24 Range/Units 11:10 11:10 11:10 WBC 8.4 (3.8-10.6) k/uL RBC 4.53 (3.80-5.40) m/uL Hgb 13.4 (11.4-16.0) gm/dL Hct 40.3 (34.0-46.0) % MCV 89.0 (80.0-100.0) fL MCH 29.7 (25.0-35.0) pg MCHC 33.3 (31.0-37.0) g/dL RDW 12.9 (11.5-15.5) % Plt Count 294 (150-450) k/uL MPV 6.9 Neutrophils % 74 % Lymphocytes % 17 % Monocytes % 6 % Eosinophils % 2 % Basophils % 0 % Neutrophils # 6.1 (1.3-7.7) k/uL Lymphocytes # 1.5 (1.0-4.8) k/uL Monocytes # 0.5 (0-1.0) k/uL Eosinophils # 0.1 (0-0.7) k/uL Basophils # 0.0 (0-0.2) k/uL Sodium 136 L (137-145) mmol/L Potassium 4.7 (3.5-5.1) mmol/L Chloride 105 (98-107) mmol/L Carbon Dioxide 22 (22-30) mmol/L Anion Gap 9 mmol/L BUN 8 (7-17) mg/dL Creatinine 0.49 L (0.52-1.04) mg/dL Est GFR (CKD-EPI)AfAm >90 (>60 ml/min/1.73 sqM) Est GFR (CKD-EPI)NonAf >90 (>60 ml/min/1.73 sqM) Glucose 86 (74-99) mg/dL Calcium 9.4 (8.4-10.2) mg/dL Total Bilirubin 0.5 (0.2-1.3) mg/dL AST 22 (14-36) U/L ALT 23 (4-34) U/L Alkaline Phosphatase 71 (38-126) U/L Total Protein 6.8 (6.3-8.2) g/dL Albumin 3.9 (3.5-5.0) g/dL Urine Color Yellow Urine Appearance Cloudy H (Clear) Urine pH 5.5 (5.0-8.0) Ur Specific [place] 1.028 (1.001-1.035) Urine Protein Trace H (Negative) Urine Glucose (UA) Negative (Negative) Urine Ketones Negative (Negative) Urine Blood Negative (Negative) Urine Nitrite Negative (Negative) Urine Bilirubin Negative (Negative) Urine Urobilinogen 3.0 (<2.0) mg/dL Ur Leukocyte Esterase Small H (Negative) Urine RBC 1 (0-5) /hpf Urine WBC 2 (0-5) /hpf Ur Squamous Epith Cells 11 H (0-4) /hpf Urine Bacteria Rare H (None) /hpf Urine Mucus Few H (None) /hpf Blood Type Blood Type Recheck Bld Type Recheck Status 07/29/24 Range/Units 11:22 WBC (3.8-10.6) k/uL RBC (3.80-5.40) m/uL Hgb (11.4-16.0) gm/dL Hct (34.0-46.0) % MCV (80.0-100.0) fL MCH (25.0-35.0) pg MCHC (31.0-37.0) g/dL RDW (11.5-15.5) % Plt Count (150-450) k/uL MPV Neutrophils % % Lymphocytes % % Monocytes % % Eosinophils % % Basophils % % Neutrophils # (1.3-7.7) k/uL Lymphocytes # (1.0-4.8) k/uL Monocytes # (0-1.0) k/uL Eosinophils # (0-0.7) k/uL Basophils # (0-0.2) k/uL Sodium (137-145) mmol/L Potassium (3.5-5.1) mmol/L Chloride (98-107) mmol/L Carbon Dioxide (22-30) mmol/L Anion Gap mmol/L BUN (7-17) mg/dL Creatinine (0.52-1.04) mg/dL Est GFR (CKD-EPI)AfAm (>60 ml/min/1.73 sqM) Est GFR (CKD-EPI)NonAf (>60 ml/min/1.73 sqM) Glucose (74-99) mg/dL Calcium (8.4-10.2) mg/dL Total Bilirubin (0.2-1.3) mg/dL AST (14-36) U/L ALT (4-34) U/L Alkaline Phosphatase (38-126) U/L Total Protein (6.3-8.2) g/dL Albumin (3.5-5.0) g/dL Urine Color Urine Appearance (Clear) Urine pH (5.0-8.0) Ur Specific [place] (1.001-1.035) Urine Protein (Negative) Urine Glucose (UA) (Negative) Urine Ketones (Negative) Urine Blood (Negative) Urine Nitrite (Negative) Urine Bilirubin (Negative) Urine Urobilinogen (<2.0) mg/dL Ur Leukocyte Esterase (Negative) Urine RBC (0-5) /hpf Urine WBC (0-5) /hpf Ur Squamous Epith Cells (0-4) /hpf Urine Bacteria (None) /hpf Urine Mucus (None) /hpf Blood Type O Positive Blood Type Recheck O Pos Bld Type Recheck Status No Disposition Clinical Impression: Threatened miscarriage, Vaginal bleeding during , Intrauterine Disposition: HOME SELF-CARE Condition: Good Instructions (If sedation given, give patient instructions): Threatened Miscarriage (ED) Additional Instructions: Return to the emergency department for any new or worsening symptoms. Recommend that you establish care with OB and follow-up for further evaluation. Is patient prescribed a controlled substance at d/c from ED?: No Referrals: None,Stated [Primary Care Provider] - 1-2 days Time of Disposition: 12:49
[2024-07-29] MEDS: ACETAMINOPHEN TAB 325 MG TAB PO STA (11:27)
[2024-07-29 11:37] LABS: Basophils % (A) 0 %; Eosinophils # (A) 0.1 k/uL (0-0.7); Eosinophils % (A) 2 %; HCT 40.3 % (34.0-46.0); HGB 13.4 gm/dL (11.4-16.0); Lymphocytes # (A) 1.5 k/uL (1.0-4.8); Lymphocytes % (A) 17 %; MCH 29.7 pg (25.0-35.0); MCHC 33.3 g/dL (31.0-37.0); Mean Platelet Volume 6.9; Monocytes # (A) 0.5 k/uL (0-1.0); Monocytes % (A) 6 %; Neutrophils # (A) 6.1 k/uL (1.3-7.7); Neutrophils % (A) 74 %; Platelet Count 294 k/uL (150-450); RBC 4.53 m/uL (3.80-5.40); RDW 12.9 % (11.5-15.5); WBC 8.4 k/uL (3.8-10.6)
[2024-07-29 11:50] LABS: ALT 23 U/L (4-34); AST 22 U/L (14-36); African American GFR (CKD) >90 (>60 ml/min/1.73 sqM); Albumin 3.9 g/dL (3.5-5.0); Alkaline Phosphatase 71 U/L (38-126); Anion Gap 9 mmol/L; Blood Urea Nitrogen 8 mg/dL (7-17); Calcium 9.4 mg/dL (8.4-10.2); Carbon Dioxide 22 mmol/L (22-30); Chloride 105 mmol/L (98-107); Glucose 86 mg/dL (74-99); Non-African American GFR(CKD) >90 (>60 ml/min/1.73 sqM); Potassium 4.7 mmol/L (3.5-5.1); Sodium 136 mmol/L (137-145); Total Bilirubin 0.5 mg/dL (0.2-1.3); Total Protein 6.8 g/dL (6.3-8.2)
--- NOTE | 2024-07-29 12:23 | US ---
EXAMINATION TYPE: Transabdominal DATE OF EXAM: 07/29/2024 12:08 PM COMPARISON: NONE CLINICAL INDICATION: Female, 34 years old with history of 10 weeks, cramping/spotting; Spotting EXAM PERFORMED: Transabdominal (TA) EXAM MEASUREMENTS: GESTATIONAL AGE / DATING Physician Established: Not yet established Dates by LMP: (11 weeks/0 days) EDC: 02/17/2025 Dates by First Scan: No previous this is first scan Dates by Current Scan for: (11 weeks/0 days) EDC: 02/17/2025 MATERNAL ANATOMY Uterus: 12.9 x 5.7 x 8.3 cm Right Ovary: Obscured by bowel gas Left Ovary: Obscured by bowel gas. Post CDS / Adnexa: wnl Presence of free fluid: no Presence of corpus luteal cyst: no Presence of subchorionic bleed: no GESTATION / SURVEY CRL: 4.01 (11 weeks/0 days) Heart Rate: 176 bpm Rhythm: Normal IUP: Viable IUP IMPRESSION: 1. A single intrauterine gestation estimated at 11 weeks 0 days gestation based on crown-rump length. Cardiac activity measures 176 bpm. [facility], , 07/29/2024 12:21 PM
[2024-07-29 12:43] LABS: Appearance,Urine Cloudy (Clear); Bacteria,Urine Rare /hpf; Bilirubin,Urine Negative (Negative); Blood,Urine Negative (Negative); Color,Urine Yellow; Glucose,Urine (UA) Negative (Negative); Ketones,Urine Negative (Negative); Leukocyte Esterase,Urine Small (Negative); Mucus,Urine Few /hpf; Nitrite,Urine Negative (Negative); PH, Urine 5.5 (5.0-8.0); Protein,Urine Trace (Negative); RBC,Urine 1 /hpf (0-5); Specific Gravity,Urine 1.028 (1.001-1.035); Squamous Epithelial Cell,Urine 11 /hpf (0-4); WBC,Urine 2 /hpf (0-5)
[2024-07-29 12:58] VITALS: BP 118/72; PULSE 82; TEMP 98.1
[2024-07-29 14:10] LABS: HCG,Quantitative Serum 73916.1 mIU/mL
== END 2024-07-29 13:03 | disposition home or self-care (01) ==
LOC: EC 10:18
DX: O20.0 Threatened abortion (principal)
CPT/HCPCS: 36415; 76801; 80053; 81001; 84702; 85025; 86900; 86901; 99284

== ENCOUNTER 2024-11-21 08:44 | Outpatient (CLI) | payer MEDICARE, OTHER ==
[2024-11-21 10:11] LABS: Appearance,Urine Cloudy (Clear); Bacteria,Urine Rare /hpf; Bilirubin,Urine Negative (Negative); Blood,Urine Negative (Negative); Color,Urine Yellow; Glucose,Urine (UA) Negative (Negative); Ketones,Urine Negative (Negative); Leukocyte Esterase,Urine Negative (Negative); Mucus,Urine Few /hpf; Nitrite,Urine Negative (Negative); Protein,Urine Negative (Negative); RBC,Urine 1 /hpf (0-5); Squamous Epithelial Cell,Urine 19 /hpf (0-4); Urobilinogen,Urine <2.0 mg/dL (<2.0); WBC,Urine 2 /hpf (0-5)
[2024-11-21 10:43] VITALS: BP 116/74; PULSE 74; RESP 16; TEMP 97.4
--- NOTE | 2024-12-10 15:55 | P.MSEPDOC ---
Presenting Problems - Arrival Data Date of Arrival on Unit: 11/21/24 Time of Arrival on Unit: 08:44 Mode of Transport: Wheelchair - Complaint OB-Reason for Admission/Chief Complaint: Pain Medical History - Information : 7 Para: 3 Term: 2 : 1 Abortions: Spontaneous or Elective: 3 Number of Living Children: 5 - Gestational Age Gestational Age by ALMA (wks/days): 27 Weeks and 3 Days Review of Systems - Review of Systems Constitutional: No problems Breast: No problems ENT: No problems Cardiovascular: No problems Respiratory: No problems Gastrointestinal: No problems Genitourinary: No problems Musculoskeletal: No problems Neurological: No problems Skin: No problems Vital Signs - Temperature Temperature: 97.4 F Temperature Source: Oral - Pulse Right Pulse Rate: 74 Pulse Assessment Method: Automatic Cuff - Respirations Respiratory Rate: 16 Oxygen Delivery Method: Room Air O2 Sat by Pulse Oximetry: 100 - Blood Pressure Right Arm Blood Pressure: 116/74 Blood Pressure Mean: 88 Blood Pressure Source: Automatic Cuff Medical Screen Scoring - Cervical Exam Dilation (cm): 0 Membranes: Intact - Assessment - Baby A Baseline FHR: 140 Heart Rate - NICHD Category: Category I (Normal) Physician Notification - Physician Notified Physician Notified Date: 11/21/24 Physician Notified Time: 09:46 Physician: Tasia Romero Order Received: Yes - Notification Comment Comment: Send UA and check cervix, Dr Romero on her way in to round, will check back then for results. Maternal Triage Index - Maternal Triage Index Presenting for scheduled procedure w/no complaint: No - Stat/Priority 1 Stat Priority 1: No - Urgent/Priority 2 Urgent Priority 2: Yes Provider Notified: Ginette Provider Notified Time: 09:46 Criteria Met for Priority 2: Pt came in complaining of cramping, more often when active. Not currently feeling any while resting in bed Disposition - Disposition OB Disposition: Discharge to home Discharge Date: 11/21/24 Discharge Time: 10:30 I agree with the RN Medical Screening Exam: Yes Physician's MSE Comment: I have neither seen nor examined the patient Case reviewed; plan agreed upon as documented in EMR&OBIX.: Yes Diagnosis: PAIN, UNSPECIFIED
== END 2024-11-21 10:30 | disposition home or self-care (01) ==
LOC: FBPOP 08:44
PROVIDERS: ATTEND Obstetrics & Gynecology
DX: O26.92 Pregnancy related conditions, unspecified, second trimester (principal); Z3A.28 28 weeks gestation of pregnancy; Z91.018 Allergy to other foods; Z88.7 Allergy status to serum and vaccine; Z88.5 Allergy status to narcotic agent
CPT/HCPCS: 81001; G0463; 99213

== ENCOUNTER 2025-01-16 14:05 | Outpatient (CLI) | payer MEDICARE, OTHER ==
[2025-01-16 14:43] VITALS: BP 127/71; PULSE 87; RESP 18; TEMP 97.7
== END 2025-01-16 14:43 | disposition home or self-care (01) ==
LOC: FBPOP 14:05
PROVIDERS: ATTEND Obstetrics & Gynecology
DX: Z53.9 Procedure and treatment not carried out, unspecified reason (principal)
CPT/HCPCS: 59025; G0463; 99213

== ENCOUNTER 2025-01-21 09:30 | Outpatient (CLI) | payer MEDICARE, OTHER ==
[2025-01-21 11:13] VITALS: BP 133/78; PULSE 111; RESP 18; TEMP 97.2
== END 2025-01-21 10:45 | disposition home or self-care (01) ==
LOC: FBPOP 09:30
PROVIDERS: ATTEND Obstetrics & Gynecology
DX: Z53.9 Procedure and treatment not carried out, unspecified reason (principal)
CPT/HCPCS: 59025; G0463; 99213

== ENCOUNTER 2025-02-08 02:35 | Inpatient (IN) | payer MEDICARE, OTHER ==
[2025-02-08] MEDS ORDERED: TRANEXAMIC 1,000 MG/100ML-NACL 1,000 MG in EMPTY BAG 1 BAG IV PRN (03:31)
[2025-02-08] MEDS ORDERED: CARBOPROST TROMETHAMINE 250 MCG/ML 1 ML AMP IM PRN (03:31)
[2025-02-08] MEDS ORDERED: OXYTOCIN 10 UNIT/ML 1 ML VIAL IM PRN (03:31)
[2025-02-08] MEDS ORDERED: METHYLERGONOVINE 0.2 MG/ML 1 ML AMP IM PRN (03:31)
[2025-02-08] MEDS ORDERED: miSOPROStoL 200 MCG TAB PO PRN (03:31)
[2025-02-08] MEDS ORDERED: OXYTOCIN 30 UNITS/500 ML NS 30 UNIT in SALINE 1 500ML.BAG IV SCH ×2 (03:45→08:45)
[2025-02-08 04:12] LABS: Basophils % (A) 0 %; Eosinophils # (A) 0.1 k/uL (0-0.7); Eosinophils % (A) 1 %; HGB 10.6 gm/dL (11.4-16.0); Hypochromasia Slight; Lymphocytes # (A) 2.5 k/uL (1.0-4.8); Lymphocytes % (A) 29 %; MCH 26.4 pg (25.0-35.0); MCHC 32.2 g/dL (31.0-37.0); MCV 81.9 fL (80.0-100.0); Mean Platelet Volume 7.4; Monocytes # (A) 0.4 k/uL (0-1.0); Monocytes % (A) 5 %; Neutrophils # (A) 5.3 k/uL (1.3-7.7); Neutrophils % (A) 63 %; Platelet Count 265 k/uL (150-450); RBC 4.03 m/uL (3.80-5.40); RDW 13.2 % (11.5-15.5); WBC 8.4 k/uL (3.8-10.6)
[2025-02-08] MEDS: LACTATED RINGERS 500 ML IV SCH (04:33)
[2025-02-08] MEDS: CITRIC ACID-SODIUM CITRATE 15 ML CUP PO ONE (07:22)
[2025-02-08] MEDS ORDERED: ONDANSETRON 4 MG/2 ML VIAL ONE (07:45)
[2025-02-08] MEDS ORDERED: KETOROLAC 15 MG/ML 1 ML VIAL ONE (07:45)
[2025-02-08] MEDS ORDERED: LANOLIN CREAM 1 GM TUBE TOPICAL PRN (08:38)
[2025-02-08] MEDS ORDERED: SIMETHICONE 80 MG CHEWABLE PO PRN (08:38)
[2025-02-08] MEDS ORDERED: NALOXONE 0.4 MG/ML 1 ML VIAL IV PRN (08:38)
[2025-02-08] MEDS ORDERED: diphenhydrAMINE 50 MG/ML 1 ML VIAL IVP PRN ×2 (08:38)
[2025-02-08] MEDS ORDERED: ZOLPIDEM 5 MG TAB PO PRN (08:38)
[2025-02-08] MEDS ORDERED: diphenhydrAMINE 50 MG CAP PO PRN (08:38)
[2025-02-08] MEDS ORDERED: diphenhydrAMINE 25 MG CAP PO PRN (08:38)
[2025-02-08] MEDS: HYDROmorphone PCA 10 MG/50 ML BAG IV PRN (09:56)
[2025-02-08] MEDS: METOCLOPRAMIDE 5 MG/ML 2 ML VIAL IVP PRN (10:55)
[2025-02-08] MEDS: LACTATED RINGERS 1,000 ML IV SCH (11:30)
[2025-02-08] MEDS: ACETAMINOPHEN IV (For NPO) 1,000 MG in EMPTY BAG 1 BAG IVPB STA (12:10)
[2025-02-08] MEDS: ACETAMINOPHEN TAB 500 MG TAB PO SCH (12:28)
[2025-02-08] MEDS: ONDANSETRON 4 MG/2 ML VIAL IVP PRN (14:52)
[2025-02-08] MEDS: KETOROLAC 15 MG/ML 1 ML VIAL IVP SCH (15:40)
[2025-02-08] MEDS: SENNOSIDES-DOCUSATE SODIUM 1 EACH TAB PO SCH (19:49)
[2025-02-09] MEDS: LACTATED RINGERS 1,000 ML IV SCH (07:54)
[2025-02-09] MEDS: IBUPROFEN 800 MG TAB PO SCH (09:17)
[2025-02-09 09:50] LABS: Basophils % (A) 0 %; Eosinophils # (A) 0.2 k/uL (0-0.7); Eosinophils % (A) 2 %; HCT 30.1 % (34.0-46.0); HGB 9.6 gm/dL (11.4-16.0); Hypochromasia Moderate; Lymphocytes # (A) 1.7 k/uL (1.0-4.8); Lymphocytes % (A) 16 %; MCH 26.6 pg (25.0-35.0); MCHC 31.9 g/dL (31.0-37.0); MCV 83.2 fL (80.0-100.0); Mean Platelet Volume 7.3; Monocytes # (A) 0.5 k/uL (0-1.0); Monocytes % (A) 5 %; Neutrophils # (A) 8.4 k/uL (1.3-7.7); Neutrophils % (A) 78 %; Platelet Count 236 k/uL (150-450); RBC 3.62 m/uL (3.80-5.40); RDW 13.1 % (11.5-15.5); WBC 10.8 k/uL (3.8-10.6)
--- NOTE | 2025-02-09 10:13 | P.PN ---
Progress Note - Text 02/09/25 642am 34-year-old female status post with spinal Duramorph. Patient seen and evaluated for postop pain control, she has a VAS of 2 with no complaint of nausea vomiting or pruritus. Patient is doing well
[2025-02-09] MEDS ORDERED: IBUPROFEN 800 MG TAB PO SCH (16:30)
[2025-02-10 00:18] VITALS: RESP 16
[2025-02-10 07:59] VITALS: BP 106/70; PULSE 77; TEMP 99.1
--- NOTE | 2025-02-10 08:25 | P.DS ---
Providers Date of admission: 02/08/25 02:54 Expected date of discharge: 02/10/25 Attending physician: Rosa Gutierres Primary care physician: Stated None - Discharge Diagnosis(es) (1) Status post repeat low transverse section Current Visit: Yes Status: Acute Hospital Course: Patient presented for repeat low-transverse and bilateral salp ingectomy. She underwent this procedure without complication. Patient will be discharged home postoperative day #2 in stable condition to follow-up with me in 2 weeks. Denies nausea, vomiting, chest pain, shortness of breath or calf pain. Plan - Discharge Summary New Discharge Prescriptions: New Ibuprofen [Motrin] 800 mg PO Q8H #30 tab Acetaminophen Tab [Tylenol] 1,000 mg PO Q8H 30 Days #60 tab No Action levETIRAcetam ORAL SOLN [Keppra Oral Soln] 500 mg PO BID Aspirin 81 mg PO DAILY Vit No.179/Iron/Folic [ Tablet] 1 each PO DAILY Discharge Medication List Aspirin 81 mg PO DAILY 11/21/24 [History] Vit No.179/Iron/Folic [ Tablet] 1 each PO DAILY 11/21/24 [History] levETIRAcetam ORAL SOLN [Keppra Oral Soln] 500 mg PO BID 01/16/25 [History] Acetaminophen Tab [Tylenol] 1,000 mg PO Q8H 30 Days #60 tab 02/10/25 [Rx] Ibuprofen [Motrin] 800 mg PO Q8H #30 tab 02/10/25 [Rx] Follow up Appointment(s)/Referral(s): Rosa Gutierres DO [Doctor of Osteopathic Medicine] - 02/22/25 10:30 am (Post appt. Mar 25 2025 @11:15 AM) Discharge Disposition: HOME SELF-CARE
--- NOTE | 2025-02-11 10:15 | P.HPOB ---
History of Present Illness H&P Date: 02/08/25 Chief Complaint: SROM, previous 34-year-old G 7P5 presents with spontaneous rupture of membranes. She had a previous and desires a repeat with bilateral salpingectomy. Patient was seen by pediatric clinical dietician who said the baby could have coarctation of the aorta but does not believe that this is the case. Baby was followed for a two-vessel cord as well. Review of Systems All systems: negative Constitutional: Denies chills, Denies fever Eyes: denies blurred vision, denies pain Ears, nose, mouth and throat: Denies headache, Denies sore throat Cardiovascular: Denies chest pain, Denies shortness of breath Respiratory: Denies cough Gastrointestinal: Denies abdominal pain, Denies diarrhea, Denies nausea, Denies vomiting Genitourinary: Denies dysuria, Denies hematuria Musculoskeletal: Denies myalgias Integumentary: Denies pruritus, Denies rash Neurological: Denies numbness, Denies weakness Psychiatric: Denies anxiety, Denies depression Endocrine: Denies fatigue, Denies weight change Past Medical History Past Medical History: Hypertension, Osteoarthritis (OA), Seizure Disorder, Skin Disorder Additional Past Medical History / Comment(s): cholelithiasis and psoriasis last seizure 07/2017,. SOB with activity. Osteoarthritis of lower back, miscarriage History of Any Multi-Drug Resistant Organisms: None Reported Past Surgical History: Bariatric Surgery, Section, Cholecystectomy, Orthopedic Surgery Additional Past Surgical History / Comment(s): bilateral knee surgery 1999, 2000. 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 EGD Past Anesthesia/Blood Transfusion Reactions: No Reported Reaction Past Psychological History: No Psychological Hx Reported Additional Psychological History / Comment(s): Pt states she lives her children. She is independent. Smoking Status: Never smoker Past Alcohol Use History: None Reported Past Drug Use History: None Reported - Past Family History Mother Family Medical History: No Reported History Additional Family Medical History / Comment(s): Mother is healthy Father Family Medical History: No Reported History Additional Family Medical History / Comment(s): Father is healthy Medications and Allergies Home Medications Medication Instructions Recorded Confirmed Type Aspirin 81 mg PO DAILY 11/21/24 01/21/25 History Vit No.179/Iron/Folic 1 each PO DAILY 11/21/24 01/21/25 History [ Tablet] levETIRAcetam ORAL SOLN [Keppra 500 mg PO BID 01/16/25 01/21/25 History Oral Soln] Acetaminophen Tab [Tylenol] 1,000 mg PO Q8H 30 Days #60 tab 02/10/25 Rx Ibuprofen [Motrin] 800 mg PO Q8H #30 tab 02/10/25 Rx Allergies Allergy/AdvReac Type Severity Reaction Status Date / Time morphine Allergy Intermediate Rash/Hives Verified 02/08/25 02:38 chocolate flavor Allergy Rash/Hives Verified 02/08/25 02:38 COVID-19 (SARS-CoV-2) Allergy Rash/Hives Verified 02/08/25 02:38 vaccine, viry Exam Osteopathic Statement: *. No significant issues noted on an osteopathic structural exam other than those noted in the History and Physical/Consult. Heart: Regular rate and rhythm Lungs: Clear to auscultation bilaterally Abdomen: Soft, nontender Extremities: Negative Homans sign Results Result Diagrams: 02/09/25 08:50 Assessment and Plan (1) Previous section Status: Acute Code(s): Z98.891 - HISTORY OF UTERINE SCAR FROM PREVIOUS SURGERY SNOMED Code(s): 196528818 (2) 38 weeks gestation of Status: Acute Code(s): Z3A.38 - 38 WEEKS GESTATION OF SNOMED Code(s): 22812858 (3) Spontaneous rupture of amniotic membranes Status: Acute Code(s): VHZ3566 - SNOMED Code(s): 513446572 (4) Family planning Status: Acute Code(s): Z30.09 - ENCOUNTER FOR OTH GENERAL CNSL AND ADVICE ON CONTRACEPTION SNOMED Code(s): 501918840 Plan: 1. Repeat low-transverse with bilateral salpingectomy
--- NOTE | 2025-02-11 10:18 | P.OP ---
Date of Procedure: 02/08/25 Preoperative Diagnosis: 1. Previous section 2. Family-planning 3. Spontaneous rupture of membranes 4. 38 weeks and 5 gestation Postoperative Diagnosis: Same Procedure(s) Performed: Repeat low-transverse with bilateral salpingectomy Anesthesia: spinal Surgeon: Rosa Gutierres Supervisor Spinning #1: Samantha Love Estimated Blood Loss (ml): 271 IV fluids (ml): 1,000 Urine output (ml): 100 Pathology: none sent Condition: stable Disposition: floor Operative Findings: Viable male, Apgars 9, 9, weight 7 pounds 11 ounces. Normal uterus, tubes, ovaries Description of Procedure: Patient was taken to the operating room where spinal anesthesia was found be adequate. She was prepped and draped in normal sterile fashion in dorsal supine position with a leftward tilt. Pfannenstiel skin incision was made the scalpel and carried through to the underlying layer of fascia with the scalpel. Fascia was incised in midline and carried bilaterally with the Oneill scissors. The superior aspect of the fascial incision was grasped with Boyd clamps elevated and the underlying rectus muscles dissected off with the Oneill's. Attention was then turned to inferior aspect of same incision which in a similar fashion was grasped tented up and the underlying rectus muscles dissected off with the Oneill's. The rectus muscles were the midline and the peritoneum was id entified tented up and entered sharply with the scalpel. The incision was extended superiorly and inferiorly with good visualization of the bladder. The bladder blade was inserted and the vesicouterine peritoneum was incised the Metzenbaums then carried bilaterally and bladder flap created digitally. A low transverse incision was then made on the uterus with the scalpel. This was carried bilaterally and digital manner. Infant's head delivered atraumatically, nose and mouth bulb suctioned, cord clamped and cut, handed off to waiting nurses. Apgars 9,9, weight 7 lbs. 11 oz. Placenta delivered manually, intact with three-vessel cord. The uterus is exteriorized and cleared of all clots and debris. The uterine incision was closed with 0 Vicryl in a running locked fashion. Second layer of the same sutures used in imbricating fashion to obtain excellent hemostasis. Both ovaries and tubes appeared normal. The right fallopian tube was grasped and the LigaSure was used to seal and cut along the mesosalpinx to remove the right fallopian tube. The left lobe fallopian tube was grasped and the LigaSure was used to seal and cut along the mesosalpinx to remove the left fallopian tube. Hemostasis was assured. The uterus was placed back into the abdomen. The muscles were reapproximated using 2-0 Vicryl in interrupted fashion. The fascia was reapproximated using 0 Vicryl in a running fashion. The subcutaneous tissues closed with 3-0 Vicryl running fashion. The skin was closed carmelo. Patient tolerated the procedure well, sponge and instrument counts were correct times 2 and she was taken to the recovery room in stable condition.
--- NOTE | 2025-02-11 10:19 | P.PNOBGPC ---
Subjective - Subjective Principal diagnosis: Status post repeat low-transverse with bilateral salpingectomy po Interval history: Patient seen and examined. Denies nausea, vomiting, chest pain, shortness of breath or calf pain. Patient reports: Reports appetite normal, Reports voiding normally, Reports pain well controlled, Reports ambulating normally [place]: doing well Objective - Exam Lungs: bilateral: normal Chest: Normal S1, Normal S2 Extremities: Present: normal Abdomen: Present: normal appearance, soft. Absent: distention, tenderness Incision: Present: normal, dry, intact Uterus: Present: normal, firm Assessment and Plan (1) Previous section Status: Resolved Code(s): Z98.891 - HISTORY OF UTERINE SCAR FROM PREVIOUS SURGERY SNOMED Code(s): 556741970 (2) 38 weeks gestation of Status: Resolved Code(s): Z3A.38 - 38 WEEKS GESTATION OF SNOMED Code(s): 07188202 (3) Spontaneous rupture of amniotic membranes Status: Resolved Code(s): ZOV1949 - SNOMED Code(s): 637619479 (4) Family planning Status: Resolved Code(s): Z30.09 - ENCOUNTER FOR OT GENERAL CNSL AND ADVICE ON CONTRACEPTION SNOMED Code(s): 126532001 (5) Status post repeat low transverse section Status: Acute Code(s): Z98.891 - HISTORY OF UTERINE SCAR FROM PREVIOUS SURGERY SNOMED Code(s): 690405674 Plan: 1. Increase ambulation 2. Regular diet
== END 2025-02-10 12:35 | disposition home or self-care (01) | DRG 784 ==
LOC: FBPOP 02:35 → 4FBP 02:54
PROVIDERS: ADMIT Obstetrics & Gynecology; ATTEND Obstetrics & Gynecology
PROC: 0UB70ZZ Excision of Bilateral Fallopian Tubes, Open Approach (ICD-10-PCS; principal; 2025-02-08 07:45)
PROC: 10D00Z1 Extraction of Products of Conception, Low, Open Approach (ICD-10-PCS; principal; 2025-02-08 07:45)
DX: O75.82 Onset (spontaneous) of labor after 37 completed weeks of gestation but before 39 completed weeks gestation, with delivery by (planned) cesarean section (principal); O99.354 Diseases of the nervous system complicating childbirth; O34.211 Maternal care for low transverse scar from previous cesarean delivery; O16.4 Unspecified maternal hypertension, complicating childbirth; O99.72 Diseases of the skin and subcutaneous tissue complicating childbirth; G40.909 Epilepsy, unspecified, not intractable, without status epilepticus; Z37.0 Single live birth; L40.9 Psoriasis, unspecified; Z3A.38 38 weeks gestation of pregnancy; Z30.2 Encounter for sterilization; Z79.82 Long term (current) use of aspirin; Z79.899 Other long term (current) drug therapy
CPT/HCPCS: 59025; 84112; 85025; 86850; 86900; 86901; 88302; 88307; 99213